=== PATIENT | female | born 1995 | race African-American/Black ===

== ENCOUNTER 2021-04-19 06:32 | Emergency (ER) | payer SELFPAY ==
[2021-04-19 06:45] VITALS: BP 124/101; PULSE 97; RESP 20; TEMP 36.7; O2SAT 100
[2021-04-19 07:13] VITALS: BP 140/94
[2021-04-19] MEDS: predniSONE 20 MG TABLET 40 MG PO (08:57)
[2021-04-19] MEDS: diphenhydrAMINE HCl CAP 25 MG CAPSULE PO (08:57)
--- NOTE | 2021-04-19 09:14 | ED.GENADULT ---
HPI - General Adult General Chief complaint: Allergic Reaction Stated complaint: Hives Time Seen by Provider: 04/19/21 06:43 Source: patient History of Present Illness HPI narrative: Patient is a 25 y/o female complaining hives all over for 1 week. She states that they itch. She took Benadryl, which did not seem to help. There is no known alleviating or exacerbating factor. She has no difficulty with swallowing or breathing. Related Data Allergies Allergy/AdvReac Type Severity Reaction Status Date / Time Sulfa (Sulfonamide Allergy Unknown RASH Verified 04/19/21 06:51 Antibiotics) Review of Systems Constitutional: Constitutional: Denies chills, Denies fever(s), Denies headache(s) and Denies weakness Eyes: Eyes: Denies blurry vision ENT: Denies headache(s) and Denies neck pain Cardiovascular: Cardiovascular: Denies chest pain and Denies dyspnea Respiratory: Respiratory: Denies cough and Denies dyspnea Gastrointestinal: Gastrointestinal: Denies abdominal pain, Denies diarrhea, Denies nausea and Denies vomiting Genitourinary: Genitourinary: Denies hematuria and Denies dysuria Musculoskeletal: Musculoskeletal: Denies back pain and Denies neck pain Integumentary/Breasts: Skin/Breast: Reports as per HPI and Reports pruritus Neurologic: Denies headache(s) and Denies weakness Exam Const: General: no acute distress and well developed Orientation/consciousness: oriented to person, oriented to place, oriented to time and patient oriented x3 HENMT: Head: normocephalic Ears: external ears normal General nose exam: Normal external nose present Eyes: General: appearance normal, both eyes and all related structures Conjunctivae: conjunctivae normal Neck: Neck: normal visual inspection and full ROM Chest: Chest palpation & inspection: normal inspection of the chest and no tenderness Resp: Effort & Inspection: normal respiratory effort Auscultation: clear to auscultation bilaterally Cardio: Rate: regular rate Rhythm: regular rhythm GI: GI Palp: No abdominal tenderness and Yes Soft to palpation Skin: General skin exam: normal color and turgor normal Other: scattered area of urticaria noted Neuro: General: oriented to person, oriented to place, oriented to time and patient oriented x3 Cognition (Neuro): normal cognition Extrem: General: normal to inspection, full ROM and no pedal edema Psych: Appearance: grossly normal Mental Status: mental status grossly normal Affect: normal affect Course Vital Signs Vital signs: Vital Signs Temperature 36.7 C 04/19/21 06:45 Pulse Rate 97 04/19/21 06:45 Respiratory Rate 20 04/19/21 06:45 Blood Pressure 124/101 H 04/19/21 06:45 Pulse Oximetry 100 04/19/21 06:45 Temperature 36.7 C 04/19/21 06:45 Pulse Rate 97 04/19/21 06:45 Respiratory Rate 16 04/19/21 11:25 Blood Pressure 140/94 H 04/19/21 07:13 Pulse Oximetry 100 04/19/21 06:45 Medical Decision Making Vital Signs Vital Signs: Vital Signs Temperature 36.7 C 04/19/21 06:45 Pulse Rate 97 04/19/21 06:45 Respiratory Rate 20 04/19/21 06:45 Blood Pressure 124/101 H 04/19/21 06:45 Pulse Oximetry 100 04/19/21 06:45 Temperature 36.7 C 04/19/21 06:45 Pulse Rate 97 04/19/21 06:45 Respiratory Rate 16 04/19/21 11:25 Blood Pressure 140/94 H 04/19/21 07:13 Pulse Oximetry 04/19/21 06:45 Lab Data Result diagrams: 04/19/21 09:31 04/19/21 09:31 Labs: Lab Results 04/19/21 04/19/21 04/19/21 Range/Units 09:31 09:31 09:31 WBC 6.0 (4.5-10.0) K/mm3 RBC 3.96 L (4.2-5.4) M/mm3 Hgb 12.3 (12.0-15.0) g/dL Hct 35.9 L (37.0-47.0) % MCV 90.7 (80-100) fl MCH 31.1 (26-34) pg MCHC 34.3 (32-36) g/dl RDW 11.3 L (11.5-14.5) % Plt Count 280 (150-375) k/mm3 MPV 10.6 H (7.4-10.4) fl Immature Gran % (Auto) 0.2 (0-0.5) % Neut % (Auto) 41.0 L (45.5-73.1) % Lymph % (Auto) 4
[2021-04-19 09:40] LABS: Basophils Percent Auto 0.3 % (0.2-1.2); Eosinophils Absolute Auto 0.1 K/mm3 (0-0.3); Eosinophils Percent Auto 1.2 % (0-4.4); Hematocrit 35.9 % (37.0-47.0); Hemoglobin 12.3 g/dL (12.0-15.0); Immature Granulocyte Absolute 0.01 K/mm3 (0.00-0.031); Immature Granulocyte Percent A 0.2 % (0-0.5); Lymphocytes Absolute Auto 2.87 K/mm3 (0.9-3.2); Lymphocytes Percent Auto 48.2 % (18.3-44.2); Mean Corpuscular HGB Conc 34.3 g/dl (32-36); Mean Corpuscular Hemoglobin 31.1 pg (26-34); Mean Corpuscular Volume 90.7 fl (80-100); Mean Platelet Volume 10.6 fl (7.4-10.4); Monocytes Absolute Auto 0.5 K/mm3 (0.1-0.6); Monocytes Percent Auto 9.1 % (2.6-8.5); Neutrophils Absolute Auto 2.5 K/mm3 (1.3-6.7); Platelet Count Result 280 k/mm3 (150-375); Red Blood Count 3.96 M/mm3 (4.2-5.4); Red Cell Distribution Width 11.3 % (11.5-14.5)
[2021-04-19 09:44] LABS: Add Urine Microscopic? YES; Appearance Urine Clear (Clear); Bacteria Urine Trace /hpf; Bilirubin Urine Negative (Negative); Color Urine Yellow (Yellow); Glucose Urine UA Negative (Negative); Ketones Urine Negative (Negative); Leukocyte Esterase Ur 2+ LEU/UL (Negative); Mucus Urine Rare /lpf; Nitrate Urine Negative (Negative); Protein Urine Negative (Negative); Specific Grav Ur 1.017 (1.001-1.035); Squamous Epithelial Cell Urine Many /hpf (Few); WBC Urine 31-50 /hpf
[2021-04-19 09:52] LABS: Anion Gap 8 mmol/L (8-16); Blood Urea Nitrogen 12 mg/dL (7-17); Calcium 9.2 mg/dL (8.4-10.2); Carbon Dioxide 25 mmol/L (22-30); Chloride 107 mmol/L (98-107); Estimated CRCL calculation 150 ml/min; Estimated Glomerular Filt Rate > 60; Glucose 97 mg/dL (65-110); Potassium 4.1 mmol/L (3.4-5.0); Sodium 140 mmol/L (137-145)
[2021-04-19 10:01] LABS: Blood Urine Negative (Negative)
[2021-04-19 11:25] VITALS: RESP 16
== END 2021-04-19 11:25 | disposition home or self-care (01) ==
PROVIDERS: Emergency Provider Emergency Medicine
DX: L50.9 Urticaria, unspecified (principal)
CPT/HCPCS: 36415; 80048; 81001; 85025; 87086; 87088; 99283; A9270; J7512

== ENCOUNTER 2021-12-25 01:04 | Emergency (ER) | payer OTHER, SELFPAY ==
--- NOTE | ~2021-12-25 | CT_ITS ---
EXAMINATION: CT soft tissue neck w con DATE: 12/25/2021 03:43 INDICATION: Right-sided facial and neck pain, fever TECHNIQUE: Computed tomography (CT) of the neck was performed with 75 cc of Omnipaque 300 intravenous contrast. The dose-length product (DLP) was 465.94 mGy-cm. Automated exposure control and iterative reconstruction technique were employed. COMPARISON: None FINDINGS: There is marked enlargement of the thyroid which extends into the neck. There is partially imaged prominent soft tissue density of the anterior mediastinum The submandibular and parotid glands are symmetric. There is no lymphadenopathy. The vasculature is patent. The airway is unremarkable. T here are no osseous abnormalities. The orbits are unremarkable. IMPRESSION: 1. Marked enlargement of the thyroid, possibly reflecting thyroiditis. Further evaluation with thyroi d function tests and ultrasound are recommended. 2. Partially imaged soft tissue density of the anterior mediastinum of unclear etiology. Finding coul d reflect thymic hyperplasia, lymphoma, or thymoma. Dedicated CT of the chest is recommended. Reviewed, dictated and finalized at location A. IMPRESSION: 1. Marked enlargement of the thyroid, possibly reflecting thyroiditis. Further evaluation with thyroid function tests and ultrasound are recommended. 2. Partially imaged soft tissue density of the anterior mediastinum of unclear etiology. Finding could reflect thymic hyperplasia, lymphoma, or thymoma. Dedic ated CT of the chest is recommended.
[2021-12-25 01:12] VITALS: BP 107/79; PULSE 117; RESP 20; TEMP 36.6; O2SAT 100
[2021-12-25] MEDS: SODIUM CHLORIDE 0.9% IV 1,000 ML 999 ML IV CONT (01:58)
[2021-12-25] MEDS: CLINDAMYCIN 600 MG/D5W 50 ML 600 MG/50 ML PIGGYBACK 100 MG IVPB (01:58)
[2021-12-25 02:11] LABS: Basophils Percent Auto 0.2 % (0.2-1.2); Eosinophils Absolute Auto 0.1 K/mm3 (0-0.3); Eosinophils Percent Auto 1.1 % (0-4.4); Hematocrit 33.9 % (37.0-47.0); Hemoglobin 11.3 g/dL (12.0-15.0); Immature Granulocyte Absolute 0.01 K/mm3 (0.00-0.031); Immature Granulocyte Percent A 0.1 % (0-0.5); Lymphocytes Absolute Auto 4.85 K/mm3 (0.9-3.2); Lymphocytes Percent Auto 52.9 % (18.3-44.2); Mean Corpuscular HGB Conc 33.3 g/dl (32-36); Mean Corpuscular Hemoglobin 28.7 pg (26-34); Mean Platelet Volume 11.1 fl (7.4-10.4); Monocytes Absolute Auto 0.8 K/mm3 (0.1-0.6); Monocytes Percent Auto 8.6 % (2.6-8.5); Neutrophils Absolute Auto 3.4 K/mm3 (1.3-6.7); Neutrophils Percent Auto 37.1 % (45.5-73.1); Platelet Count Result 291 k/mm3 (150-375); Red Blood Count 3.94 M/mm3 (4.2-5.4); Red Cell Distribution Width 13.1 % (11.5-14.5); White Blood Count 9.2 K/mm3 (4.5-10.0)
[2021-12-25 02:24] LABS: INR 1.1; Prothrombin Time 14.1 Seconds (11.1-14.7)
[2021-12-25 02:25] LABS: Partial Thromboplastin Time 38.2 SECONDS (22.3-36.8)
[2021-12-25 02:26] LABS: Lactic Acid Reflex 2.2 mmol/L (0.7-2.0)
[2021-12-25] MEDS: KETOROLAC 30 MG/ML VIAL (*BKC) IV PUSH (02:28)
[2021-12-25 02:35] LABS: Amphetamine Screen Urine Negative (Negative); Barbiturate Screen Urine Negative (Negative); Benzodiazepines Screen Urine Negative (Negative); Cannabinoid Screen Urine Positive (Negative); Cocaine Screen Urine Negative (Negative); Methadone Screen Urine Negative (Negative); Opiate Screen Urine Negative (Negative); Phencyclidine Screen Urine Negative (Negative)
--- NOTE | 2021-12-25 02:50 | ED.NECK ---
HPI - Neck Pain/Injury General Chief Complaint: Neck Pain/Injury Stated Complaint: difficulty swallowing Time Seen by Provider: 12/25/21 01:40 Source: patient, RN notes reviewed and old records reviewed Mode of arrival: ambulatory Limitations: no limitations History of Present Illness HPI Narrative: This is a 26 year old female who presents for evaluation of right upper dental pain and neck swelling. Patient is complaining of right upper tooth pain for 2 days. She states her pain has gotten worsen. Tonight she also noticed that she is having neck swelling. She reports mild sob and difficulty swallowing. She reports she felt like food got sucks. She denies fever, chills, nausea, vomiting. She is complaining of neck pain as well., Related Data Allergies Allergy/AdvReac Type Severity Reaction Status Date / Time Sulfa (Sulfonamide Allergy Unknown RASH Verified 12/25/21 01:14 Antibiotics) Review of Systems Review of Systems: All systems reviewed & are unremarkable except as noted in HPI and below Constitutional: Constitutional: Denies chills and Denies fever(s) ENT: Reports mouth pain and Reports neck pain Cardiovascular: Cardiovascular: Denies chest pain and Reports rapid heart rate Respiratory: Respiratory: Denies chest congestion Gastrointestinal: Gastrointestinal: Denies abdominal pain, Denies diarrhea and Denies vomiting Neurologic: Denies headache(s), Denies focal weakness and Denies numbness Endocrine: Endocrine: Reports excessive sweating and Reports palpitations PMFSH Past Medical History Medical History (Updated 12/25/21 @ 06:12 by Josephine Vazquez MD) Patient denies medical problems Social History Social History (Updated 12/25/21 @ 02:53 by Josephine Vazquez MD) Smoking packs per day: 1 Smoking cigarettes per day: 20.0 Smoking status: Current every day smoker Exam Const: General: alert Nutritional Appearance: well nourished Orientation/consciousness: patient oriented x3 Other: patient crying HENMT: Head: normal to inspection Mouth: Yes lip normal and Yes moist mucous membranes Teeth and gingiva: abnormal tooth and associated gingiva (right upper tooth4 broken, no gum swelling) Throat: posterior oropharynx normal and uvula midline Eyes: Conjunctivae: conjunctivae normal Pupils: Equal, round and reactive pupils present EOM: EOMs intact bilaterally Neck: Thyroid: diffusely enlarged, not firm, no nodules, tender and no warm Lymphatic: no lymphadenopathy noted Other: anterior neck swelling Resp: Effort & Inspection: normal respiratory effort Auscultation: clear to auscultation bilaterally and breath sounds present Cardio: Rate: tachycardic Rhythm: regular rhythm Heart sounds: no murmurs GI: GI Palp: Yes Soft to palpation, No Tenderness to palpation present (GI), No Guarding due to palpation present (GI), No Rigid due to palpation and No Hernia present Auscultation: normal bowel sounds Back/Spine/Pelvis: Back: no CVA tenderness Skin: General skin exam: normal color Rashes: no rashes Neuro: General: patient oriented x3 and moves all extremities Cranial nerves: Yes Nystagmus not present Speech: normal speech Extrem: General: normal to inspection Psych: Mental Status: mental status grossly normal Affect: normal affect Course Reevaluation(s) Reevaluation #1: Patient states she feels better. After discussion she has had weight loss, increased heart rate, bulging eyes for a couple months. She has hyperthyroid with thyroiditis. I discussed discharge management and that she will need to see PCP and technical report writer. I discussed she will be discharge on initial treatment. Date: 12/25/21 Time: 05:57 Vital Signs Vital signs: Vital Signs Temperature 97.8 F 12/25/21 01:12 Pulse Rate 117 H 12/25/21 01:12 Respiratory Rate 20 12/25/21 01:12 Blood Pressure 107/79 12/25/21 01:12 Pulse Oximetry 100 12/25/21 01:12 Oxygen Delivery Room Air
[2021-12-25 03:03] LABS: Alanine Aminotransferase 20 U/L (6-35); Albumin Level 3.7 g/dL (3.5-5.1); Alkaline Phosphatase 110 U/L (38-126); Anion Gap 6 mmol/L (8-16); Aspartate Amino Transferase 30 U/L (14-36); Bilirubin,Total < 0.1 mg/dL (0.2-1.3); Blood Urea Nitrogen 13 mg/dL (7-17); CRP 0.6 mg/dL (<1.0); Calcium 9.3 mg/dL (8.4-10.2); Carbon Dioxide 27 mmol/L (22-30); Chloride 108 mmol/L (98-107); Estimated CRCL calculation 150 ml/min; Estimated Glomerular Filt Rate > 60; Glucose 103 mg/dL (65-110); Magnesium 1.6 mg/dL (1.6-2.3); Potassium 3.7 mmol/L (3.4-5.0); Sodium 141 mmol/L (137-145)
[2021-12-25 03:12] VITALS: BP 101/75; PULSE 115; RESP 16; O2SAT 100
[2021-12-25 03:53] VITALS: BP 145/82; PULSE 108; RESP 16; O2SAT 98
[2021-12-25 04:23] LABS: Thyroid Stimulating Hormone Reflex < 0.015 uIU/mL (0.465-4.68)
[2021-12-25 05:08] LABS: Reflex Lactic Acid Yes or No Add Lactic
[2021-12-25 06:18] LABS: Lactic Acid 0.8 mmol/L (0.7-2.0)
[2021-12-25 06:39] VITALS: BP 112/57; PULSE 108; RESP 20; O2SAT 100
--- NOTE | 2021-12-25 06:47 | PC.NURSE ---
Pt left keys in room once pt was discharged. RN called to inform pt. Pt states she is coming back to get them.
== END 2021-12-25 06:40 | disposition home or self-care (01) ==
PROVIDERS: Emergency Provider General Practice
DX: K04.7 Periapical abscess without sinus (principal); E06.9 Thyroiditis, unspecified; E05.90 Thyrotoxicosis, unspecified without thyrotoxic crisis or storm; F17.210 Nicotine dependence, cigarettes, uncomplicated
CPT/HCPCS: 36415; 70491; 80053; 80307; 81025; 83605; 83735; 84439; 84443; 85025; 85610; 85730; 86140; 87081; 87147; 87880; 96365; 96375; 99284; J1100; J1885; J7030; Q9967

== ENCOUNTER 2022-02-24 10:45 | Outpatient (CLI) | payer OTHER, SELFPAY ==
[2022-02-24 20:07] LABS: Free T4 Free Thyroxine 2.69 ng/mL (0.78-2.19)
[2022-02-24 20:11] LABS: Thyroid Stimulating Hormone < 0.015 uIU/mL (0.465-4.680)
[2022-02-28 14:03] LABS: Thyroid Stimulating Immunoglob 417 % baseline (<140)
== END 2022-02-24 10:46 | disposition home or self-care (01) ==
PROVIDERS: PCP Family Medicine; Visit Provider Family Medicine
DX: E05.90 Thyrotoxicosis, unspecified without thyrotoxic crisis or storm (principal)
CPT/HCPCS: 36415; 84439; 84443; 84445

== ENCOUNTER 2024-05-16 10:38 | Outpatient (CLI) | payer MEDICAID, SELFPAY | END 2024-05-16 10:39 | disposition home or self-care (01) | LOC: ANHLAB 10:38 | PROVIDERS: PCP Family Medicine; Visit Provider Nurse Practitioner Family | DX: Z87.59 Personal history of other complications of pregnancy, childbirth and the puerperium (principal) | CPT/HCPCS: 36415; 84702 ==

== ENCOUNTER 2024-06-15 10:16 | Outpatient (CLI) | payer MEDICAID, SELFPAY ==
[2024-06-15 11:35] LABS: Basophils Percent Auto 0.1 % (0.2-1.2); Eosinophils Absolute Auto 0.1 K/mm3 (0-0.3); Eosinophils Percent Auto 0.8 % (0-4.4); Hematocrit 35.8 % (37.0-47.0); Hemoglobin 12.7 g/dL (12.0-15.0); Immature Granulocyte Absolute 0.02 K/mm3 (0.00-0.031); Immature Granulocyte Percent A 0.3 % (0-0.5); Lymphocytes Absolute Auto 2.07 K/mm3 (0.9-3.2); Lymphocytes Percent Auto 27.7 % (18.3-44.2); Mean Corpuscular HGB Conc 35.5 g/dl (32-36); Mean Corpuscular Hemoglobin 30.4 pg (26-34); Mean Corpuscular Volume 85.6 fl (80-100); Monocytes Absolute Auto 0.5 K/mm3 (0.1-0.6); Monocytes Percent Auto 6.2 % (2.6-8.5); Neutrophils Absolute Auto 4.9 K/mm3 (1.3-6.7); Neutrophils Percent Auto 64.9 % (45.5-73.1); Platelet Count Result 267 k/mm3 (150-375); Red Blood Count 4.18 M/mm3 (4.2-5.4); Red Cell Distribution Width 11.9 % (11.5-14.5); White Blood Count 7.5 K/mm3 (4.5-10.0)
[2024-06-15 11:42] LABS: Add Urine Microscopic? YES; Appearance Urine Cloudy (Clear); Bacteria Urine 2+ /hpf; Bilirubin Urine Negative (Negative); Blood Urine Negative (Negative); Color Urine Yellow (Yellow); Glucose Urine UA Negative (Negative); Ketones Urine Negative (Negative); Leukocyte Esterase Ur 3+ LEU/UL (Negative); Nitrate Urine Negative (Negative); Non Pathogenic Casts 0-2; Protein Urine Trace mg/dL (Negative); RBC Urine 0-2 /hpf (0-2); Specific Grav Ur 1.024 (1.001-1.035); Squamous Epithelial Cell Urine Few /hpf (Few); WBC Urine 51-100 /hpf (0-3)
[2024-06-15 12:09] LABS: Vitamin D 25 Hydroxy 27.2 ng/mL
[2024-06-15 12:18] LABS: Thyroid Stimulating Hormone < 0.015 uIU/mL (0.465-4.680)
[2024-06-15 12:24] LABS: Hepatitis B Surface Antigen Negative (Negative); Rubella IgG Antibody 14.3 IU/ML
[2024-06-15 12:27] LABS: HIV 1/2 Ab P24 Ag Result Negative (Negative)
[2024-06-15 12:40] LABS: Hepatitis C Virus Antibody Negative (Negative)
[2024-06-15 13:07] LABS: Free T4 Free Thyroxine 3.12 ng/mL (0.78-2.19)
[2024-06-16 11:42] LABS: Rapid Plasma Reagin Non-Reactive (NonReactive)
[2024-06-17 17:04] LABS: Varicella IgG Antibody <1.00 S/CO
[2024-06-17 18:17] LABS: Thyroid Peroxidase Antibodies 1 IU/mL (<9)
[2024-06-17 18:54] LABS: Hematocrit 37.4 % (35.0-45.0); Hemoglobin 12.3 g/dL (11.7-15.5); MCH 30.2 pg (27.0-33.0); MCV 91.9 fL (80.0-100.0); Red Blood Cell Count 4.07 Million/uL (3.80-5.10)
== END 2024-06-15 10:17 | disposition home or self-care (01) ==
LOC: ANHLAB 10:17
PROVIDERS: PCP Family Medicine; Visit Provider Obstetrics & Gynecology
DX: Z34.90 Encounter for supervision of normal pregnancy, unspecified, unspecified trimester (principal); E05.90 Thyrotoxicosis, unspecified without thyrotoxic crisis or storm
CPT/HCPCS: 36415; 81001; 81220; 81243; 82306; 83021; 84439; 84443; 85025; 86376; 86592; 86703; 86762; 86787; 86803; 86850; 86900; 86901; 87086; 87340; G0432

== ENCOUNTER 2024-06-25 11:23 | Outpatient (CLI) | payer MEDICAID, SELFPAY ==
--- NOTE | ~2024-06-25 | US_ITS ---
EXAMINATION: US thyroid DATE: 06/25/2024 12:06 INDICATION: Thyrotoxicosis, unspecified without thyrotoxic crisis. TECHNIQUE: Multiple ultrasound images of the thyroid were obtained. COMPARISON: Neck CT 12/25/2021 FINDINGS: The right thyroid lobe measures 8.0 x 2.7 x 3.1 cm. The left thyroid lobe measures 7.2 x 2.4 x 3.2 c m. There is normal echotexture and echogenicity throughout the thyroid gland. No discrete nodules id entified. Normal vascular flow is present. IMPRESSION: 1. Chronically enlarged thyroid. Reviewed, dictated and finalized at location A. [employer]
== END 2024-06-25 11:24 | disposition home or self-care (01) ==
PROVIDERS: PCP Family Medicine; Visit Provider Obstetrics & Gynecology
DX: E04.9 Nontoxic goiter, unspecified (principal)
CPT/HCPCS: 76536

== ENCOUNTER 2024-07-10 13:50 | Outpatient (CLI) | payer MEDICAID, SELFPAY ==
[2024-07-10 14:30] LABS: Hematocrit 34.7 % (37.0-47.0); Hemoglobin 12.1 g/dL (12.0-15.0); Mean Corpuscular HGB Conc 34.9 g/dl (32-36); Mean Corpuscular Hemoglobin 30.2 pg (26-34); Mean Corpuscular Volume 86.5 fl (80-100); Mean Platelet Volume 10.9 fl (7.4-10.4); Platelet Count Result 273 k/mm3 (150-375); Red Blood Count 4.01 M/mm3 (4.2-5.4); Red Cell Distribution Width 12.1 % (11.5-14.5); White Blood Count 14.6 K/mm3 (4.5-10.0)
[2024-07-10 16:12] LABS: Alanine Aminotransferase 13 U/L (6-35); Albumin Level 3.7 g/dL (3.5-5.1); Alkaline Phosphatase 66 U/L (38-126); Anion Gap 5 mmol/L (4-12); Aspartate Amino Transferase 24 U/L (14-36); Bilirubin,Total 0.3 mg/dL (0.2-1.3); Blood Urea Nitrogen 11 mg/dL (7-17); Calcium 9.2 mg/dL (8.4-10.2); Carbon Dioxide 24 mmol/L (22-30); Chloride 103 mmol/L (98-107); Estimated Glomerular Filt Rate > 60; Glucose 100 mg/dL (65-110); Potassium 4.2 mmol/L (3.4-5.0); Sodium 132 mmol/L (137-145)
[2024-07-10 16:41] LABS: Total Triiodothyronine (T3) 3.08 NG/ML (0.97-1.69)
[2024-07-10 16:45] LABS: Free T4 Free Thyroxine 3.42 ng/dL (0.78-2.19)
== END 2024-07-10 13:51 | disposition home or self-care (01) ==
LOC: ANHLAB 13:51
PROVIDERS: PCP Family Medicine; Visit Provider Obstetrics & Gynecology
DX: E05.90 Thyrotoxicosis, unspecified without thyrotoxic crisis or storm (principal)
CPT/HCPCS: 36415; 80053; 84439; 84480; 85027

== ENCOUNTER 2024-08-18 07:51 | Observation (INO) | payer BC, SELFPAY ==
--- NOTE | ~2024-08-18 | US_ITS ---
Limited Pelvic ultrasound. Clinical History: Evaluate placenta and cervical length, vaginal bleeding, third trimester Technique: Realtime transabdominal scanning of the pelvis was performed. Color flow Doppler and Doppl er spectral analysis were performed. Findings: The uterus is anteverted, and contains an intrauterine gestation, with cephalic lie. Placen ta located towards the fundus and posterior aspect of the uterus. No evidence for placenta previa. Fe ulices heart rate is 165 bpm. Cervix closed, measuring 2.9 cm in length. Amniotic fluid index is 16.1.. Neither ovary visualized. No adnexal mass seen. There is no evidence of free fluid in the cul de sac. Impression: Live intrauterine gestation, with heart rate of 1 65 bpm, and cephalic lie. Posterior/fundal placenta. No evidence for placenta previa. Amniotic fluid index is 16.1. Reviewed, dictated and finalized at [facility]. 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 Posterior/fundal placenta. No evidence for placenta previa. Amniotic fluid index is 16.1.
--- OUTSIDE RECORDS SUMMARY | 2024-08-18 08:00 | XMS_ITS | Data Portability ---
Author Organization [facility] DARRYL Roberto Gutierrez Address [address] [place] [address] Care Team Providers Care [employer] Faculty Member Name Role Phone NADIA HAN Primary Care Provider Assessment Encounter Date Assessment Date Assessment LastModified by Organization Details LastModified Time 09/22/2016 09/22/2016 21yo: 1. missed period: - patient still technically within the timeframe of what's considered normal for menses (21-35d). We discussed this. Patient also endorsing extra stress at this time which could contribute to cycle irregularity, and also history of irregular cycles previously. Encouraged patient to wait another week for menses to come. If no cycle then can either take home UPT to be sure she is not or return to clinic for PT here. 2. Contraception: - patient was very strongly counseled to choose an alternative method of contraception to condoms. We discussed efficacy rates among condoms and also LARCs. Patient expressed concern for side effects, and hormone-free IUD was advised. She was given information and encouraged to call the office if she decides to proceed. She is also going to look into her insurance coverage through the . 3. RTC if desires to use IUD [email or web address] Not available 09/22/2016 15:42:45 04/13/2018 04/13/2018 LMP WAS - WNL FLOW [email or web address] Not available 04/13/2018 12:53:39 Plan of Treatment Reminders Order Date Submit Date Provider Last Modified By Organization Details Last Modified Time Details Appointments None record ed. Lab pregna ncy test, urine 2016 017 [email or web address] In-Office Order, Internal Use Only DO Not Attach Compendium DO Not Attach Compendium, Do Not Delete/merge, [id number] 7 15:43:20 wet mount, vagina l 2017 018 [email or web address] s In-Office Order, Internal Use Only DO Not Attach Compendium DO Not Attach Compendium, Do Not Delete/merge, [id number] 8 18:53:36 vance wet prep 2017 018 [email or web address] s In-Office Order, Internal Use Only DO Not Attach Compendium DO Not Attach Compendium, Do Not Delete/merge, [id number] 8 18:53:36 pap, IG + CT/NG 2017 018 [facility], [address] [facility] [address] [facility], [address], [place], [address], 8 17:10:29 RPR (rapid plasma reagin ), serum 2017 018 [facility], [address] [facility] [address], [address], [place], [address], 8 17:11:44 HIV (1+2) Ab screen , serum 2017 018 [email or web address] [facility], [address] [facility], [address], [place], [address], 8 17:30:42 hepati tis panel (A+B+C ), acute, serum 2017 018 [facility], [address] [facility], [address], [place], [address], 8 17:11:42 hsv-2 (herpe s simple x virus type 2) igg Ab, serum 2017 018 [email or web address] [facility] ([facility] [address] [place], [address], 8 17:30:43 cytolo gy report , thin prep, smear or scrapi ng, cervic al or vagina l 2021 [facility], [address] [facility] [address], [address], [place], [address], 2 11:36:42 bacter ial vagino sis score, AVILA+pr obe, vagina l fluid (OBS) 2021 [facility], [address] [facility] [address] [facility], [address], [place], [address], 10:36:39 Referral obstet rician and gyneco logist referr al 2021 [facility], [address] [place] [address], [address], 14:14:11 Procedures None record ed. Surgeries None record ed. Imaging US, breast , bilate ral, comple te 2021 [facility], [address] [place] [address] [address], [place], [address], 2 12:14:49 MAMMO, diagno stic, bilate ral 2021 [facility], [facility], [place], [address], 2 12:14:49 Medication Orders metron idazol e 500 mg tablet 2017 018 [email or web address] [id number], [address] , [place], [place], [id number], 11:28:55 ceftri axone 250 mg soluti on for inject ion 2017 018 [email or web address] Not available 11:28:33 flucon azole 150 mg tablet 2017 018 [email or web address] Not available 11:28:44 azithr omycin 500 mg tablet [address] [facility] #[id number], [address] [facility], [place], [place], [id number], 2 11:28:27 flucon azole 150 mg tablet [address] [facility] #[id number], [address] [facility], [place], [place], [id number], 11:28:44 ceftri axone 250 mg soluti on for inject ion 2017 018 [email or web address] Not available 11:28:33 hydroc ortiso ne 2.5 % topica l ointme nt 2021 022 [facility] #[id number], [address] [facility] [address], [place], [place], [id number], 12:17:38 Patient TargetsNo targets recorded. Patient InstructionsNo instructions recorded. 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 Referral for Female infertility Referring Physician: Nadia Han, Family Medicine, Encounter Date: 09/15/2021 Results Created Date Observation Date Name Description Value Unit Range Abnormal Flag Note LastModifiedBy Organization Detail LastModifiedTime 09/23/19 17 09/22/2016 pregn octavio test, urine HCG negati ve Not Available In-Office Order Internal Use Only DO Not Attach Compendium DO Not Attach Compendium, Do Not Delete/merge, [id number] 09/22/2016 15:06:05 03/28/20 18 03/29/2018 hepat itis panel (A+B+ C), acute , serum hep A Ab, IgM Negati ve negati ve Not Available [facility] ([facility]) [address] [facility] [address], [place], [address], 03/29/2018 17:11:42 03/28/20 18 03/29/2018 hepat itis panel (A+B+ C), acute , serum HBsAg screen Negati ve negati ve Not Available [facility] ([facility]) [address] [place], [address], 03/29/2018 17:11:42 03/28/20 18 03/29/2018 hepat itis panel (A+B+ C), acute , serum hep B core Ab, IgM Negati ve negati ve Not Available [facility] ([facility]) [address] [place], [address], 03/29/2018 17:11:42 03/28/20 18 03/29/2018 hepat itis panel (A+B+ C), acute , serum hep C virus Ab 0.1 s/co_ ratio 0.0-0. 9 Negat luca: < 0.8 Indet ermin ate: 0.8 - 0.9 Posit luca: > 0.9 The CDC recom mends that a posit luca HCV antib malinda resul t be follo wed up with a HCV Nucle ic Acid Ampli ficat ion test (5507 13). Not Available [facility] ([facility]) [address] [address], [place], [address], 03/29/2018 17:11:42 03/28/20 18 03/29/2018 hsv (1+2) igg Ab, serum hsv 1 IgG, type spec 48.20 index 0.00-0 .90 above high normal Negat luca <0.91 Equiv ocal 0.91 - 1.09 Posit luca >1.09 Note: Negat luca indic ates no antib odies detec eric to HSV-1 . Equiv ocal may sugge st early infec tion. If clini darrius appro priat e, retes t at later date. Posit luca indic ates antib odies detec eric to HSV-1 . Not Available [facility] ([facility]) [address] [place], [address], 03/29/2018 17:11:43 03/28/20 18 03/29/2018 hsv (1+2) igg Ab, serum hsv 2 IgG, type spec 2.42 index 0.00-0 .90 above high normal Negat luca <0.91 Equiv ocal 0.91 - 1.09 Posit luca >1.09 Note: Negat luca indic ates no antib odies detec eric to HSV-2 . Equiv ocal may sugge st early infec tion. If clini darrius appro priat e, retes t at later date. Posit luca indic ates antib odies detec eric to HSV-2 . Not Available [facility] ([facility]) [address] [address], [place], [address], 03/29/2018 17:11:43 03/28/20 18 03/29/2018 hsv (1+2) igg Ab, serum hsv-2 IgG supplemental test Positi ve negati ve abnormal HSV-2 IgG HSV-2 IgG Type Speci fic Confi rmati on Inter preta tion ----- ----- ----- ----- ----- ----- ----- ----- ----- ----- ----- Posit luca/E quivo ndaya Posit luca Indic ates the prese nce of detec table IgG antib odies to HSV-2 . ----- ----- ----- ----- ----- ----- ----- ----- ----- ----- ----- Posit luca/E quivo nadya Negat luca Unabl e to confi rm the prese nce of IgG antib odies to HSV-2 . Recom mend retmannie cruz in 2-4 weeks . ----- ----- ----- ----- ----- ----- ----- ----- ----- ----- ----- Not Available [facility] ([facility]) [address] [place], [address], 03/29/2018 17:11:43 03/28/20 18 03/29/2018 HIV 1+2 AB + HIV 1 p24 Ag, quali tativ e immun oassa y, serum HIV screen 4TH generation wrfx Non Reacti ve non reacti ve Not Available [facility] ([facility]) [address] [place], [address], 03/29/2018 17:11:43 03/28/20 18 03/29/2018 RPR (rapi d plasm a reagi n), serum RPR Non Reacti ve non reacti ve Not Available [facility] ([facility]) [address] [facility] [address], [place], [address], 03/29/2018 17:11:43 03/29/20 18 04/02/2018 pap, IG + CT/NG diagnosis: Commen t NEGASHLEY LUCA FOR INTRA EPITH ELIAL LESIO N AND KARISHMA ZAMARRIPA . CELLU LAR BATISTA ES ASSOC IATED WITH HERPE S SIMPL EX ARE PRESE NT. THIS SPECI MEN WAS RESCR EENED PART OF OUR QUALI TY CONTR OL PROGR AM. Not Available [facility] ([facility]) [address] [place], [address], 04/02/2018 17:10:29 03/29/20 18 04/02/2018 pap, IG + CT/NG specimen adequacy: Commen t Satis facto ry for evalu ation . Endoc ervic al and/o r squam ous metap lasti c cells (endo cervi nadya compo nent) are prese nt. Not Available [facility] ([facility]) [address] [place], [address], 04/02/2018 17:10:29 03/29/20 18 04/02/2018 pap, IG + CT/NG clinician provided ICD10: Hernando t Z01.4 11 Not Available [facility] ([facility]) [address] [address], [place], [address], 04/02/2018 17:10:29 03/29/20 18 04/02/2018 pap, IG + CT/NG performed by: Hernando Lema , Cytot echno logis t (ASCP ) Not Available [facility] ([facility]) [address] [place], [address], 04/02/2018 17:10:29 03/29/20 18 04/02/2018 pap, IG + CT/NG QC reviewed by: Hernando jhaveri, Cytot echno logis t (ASCP ) Not Available [facility] ([facility]) [address] [place], [address], 04/02/2018 17:10:29 03/29/20 18 04/02/2018 pap, IG + CT/NG . . Not Available [facility] ([facility]) [address] [address], [place], [address], 04/02/2018 17:10:29 03/29/20 18 04/02/2018 pap, IG + CT/NG note: Hernando ricks The Pap smear is a scree serg test desig paulie to aid in the detec tion of adrian ligna nt and malig nant condi tions of the uteri ne cervi x. It is not a diagn ostic proce dure and shoul d not be used as the sole means of detec ting cervi nadya cance r. Both false -posi tive and false -nega tive repor ts do occur . Not Available [facility] ([facility]) [address] [address], [place], [address], 04/02/2018 17:10:29 03/29/20 18 04/02/2018 pap, IG + CT/NG test methodology: Hernando ricks This liqui d based ThinP rep(R ) pap test was scree paulie with the use of an image guide felix callejas. Not Available [facility] ([facility]) [address] [address], [place], [address], 04/02/2018 17:10:29 03/29/20 18 04/02/2018 pap, IG + CT/NG chlamydia, nuc. acid amp Positi ve negati ve abnormal Not Available [facility] ([facility]) [address] [address], [place], [address], 04/02/2018 17:10:29 03/29/20 18 04/02/2018 pap, IG + CT/NG gonococcus, nuc. acid amp Positi ve negati ve abnormal Not Available [facility] ([facility]) [address] [address], [place], [address], 04/02/2018 17:10:29 03/29/20 18 03/29/2018 vance wet prep Yeast positi ve Not Available In-Office Order Internal Use Only DO Not Attach Compendium DO Not Attach Compendium, Do Not Delete/merge, [id number] 03/29/2018 18:51:25 03/29/20 18 03/29/2018 wet mount , vagin al Clue Cells positi ve Not Available In-Office Order Internal Use Only DO Not Attach Compendium DO Not Attach Compendium, Do Not Delete/merge, [id number] 03/29/2018 18:51:24 03/29/20 18 03/29/2018 wet mount , vagin al Trichomonas positi ve Not Available In-Office Order Internal Use Only DO Not Attach Compendium DO Not Attach Compendium, Do Not Delete/merge, [id number] 03/29/2018 18:51:24 09/15/19 22 09/18/2021 IGP, APTIM A HPV, RFX 16/18 ,45 HPV aptima Negati ve negati ve This nucle ic acid ampli ficat ion test detec ts fourt een high- risk HPV types (16,1 8,31, 33,35 ,39,4 5,51, 52,56 ,58,5 9,66, 68) witho ut diffe renti ation . Not Available [facility] ([facility]) [address] [facility] [address], [place], [address], 09/20/2021 11:36:42 09/15/19 22 09/20/2021 IGP, APTIM A HPV, RFX 16/18 ,45 diagnosis: Hernando SEGOVIA FOR INTRA EPITH ELIAL YULIA N OR KARISHMA MARILOU . Not Available [facility] ([facility]) [address] [place], [address], 09/20/2021 11:36:42 09/15/19 22 09/20/2021 IGP, APTIM A HPV, RFX 16/18 ,45 specimen adequacy: Hernando t Satis facto ry for evalu ation . Endoc ervic al and/o r squam ous metap lasti c cells (endo cervi nadya compo nent) are prese nt. Not Available [facility] ([facility]) [address] [place], [address], 09/20/2021 11:36:42 09/15/19 22 09/20/2021 IGP, APTIM A HPV, RFX 16/18 ,45 clinician provided ICD10: Hernando ricks Z12.4 Not Available [facility] ([facility]) [address] [place], [address], 09/20/2021 11:36:42 09/15/19 22 09/20/2021 IGP, APTIM A HPV, RFX 16/18 ,45 performed by: Jennie Alejandra (ASCP ) Not Available [facility] ([facility]) [address] [place], [address], 09/20/2021 11:36:42 09/15/19 22 09/20/2021 IGP, APTIM A HPV, RFX 16/18 ,45 . . Not Available [facility] ([facility]) [address] [place], [address], 09/20/2021 11:36:42 09/15/19 22 09/20/2021 IGP, APTIM A HPV, RFX 16/18 ,45 note: Commen t The Pap smear is a scree serg test desig paulie to aid in the detec tion of adrian ligna nt and malig nant condi tions of the uteri ne cervi x. It is not a diagn ostic proce dure and shoul d not be used as the sole means of detec ting cervi nadya cance r. Both false -posi tive and false -nega tive repor ts do occur . Not Available [facility] ([facility]) [address] [place], [address], 09/20/2021 11:36:42 09/15/19 22 09/20/2021 IGP, APTIM A HPV, RFX 16/18 ,45 test methodology: Hernando t This liqui d based ThinP rep(R ) pap test was scree paulie with the use of an image guide felix callejas. Not Available [facility] ([facility]) [address] [place], [address], 09/20/2021 11:36:42 09/15/19 22 09/20/2021 NUSWA B VG+, HSV atopobium vaginae High - 2 score abnormal Not Available [facility] ([facility]) [address] [place], [address], 09/21/2021 10:36:39 09/15/19 22 09/20/2021 NUSWA B VG+, HSV bvab 2 High - 2 score abnormal Not Available [facility] ([facility]) [address] [place], [address], 09/21/2021 10:36:39 09/15/19 22 09/20/2021 NUSWA B VG+, HSV megasphaera 1 High - 2 score abnormal Calcu late total score by bebeto allen the 3 indiv idual bacte rial vagin osis (BV) marke r score s toget her. Total score is inter prete d as follo ws: Total score 0-1: Indic ates the absen ce of BV. Total score 2: Indet ermin ate for BV. Addit ional clini nadya data shoul d be evalu ated to estab alexandro a diagn osis. Total score 3-6: Indic ates the prese nce of BV. This test was devel oped and its perfo rmanc e chio cteri stics deter mined by [facility]. It has not been clear ed or appro mary by the Food and Drug Admin istra tion. Not Available [facility] ([facility]) [address] [place], [address], 09/21/2021 10:36:39 09/15/19 22 09/20/2021 NUSWA B VG+, HSV erlin albicans, AVILA Negati ve negati ve Not Available [facility] ([facility]) [address] [place], [address], 09/21/2021 10:36:39 09/15/19 22 09/20/2021 NUSWA B VG+, HSV erlin glabrata, AVILA Negati ve negati ve Not Available [facility] ([facility]) [address] [place], [address], 09/21/2021 10:36:39 09/15/19 22 09/20/2021 NUSWA B VG+, HSV trich vag by AVILA Positi ve negati ve abnormal Not Available [facility] ([facility]) [address] [place], [address], 09/21/2021 10:36:39 09/15/19 22 09/20/2021 NUSWA B VG+, HSV chlamydia trachomatis, AVILA Positi ve negati ve abnormal Not Available [facility] ([facility]) [address] [place], [address], 09/21/2021 10:36:39 09/15/19 22 09/20/2021 NUSWA B VG+, HSV neisseria gonorrhoeae, AVILA Negati ve negati ve Not Available [facility] ([facility]) [address] [facility], [place], [address], 09/21/2021 10:36:39 09/15/19 22 09/21/2021 NUSWA B VG+, HSV hsv 1 AVILA Negati ve negati ve Not Available [facility] ([facility]) [address] [facility] [address], [place], [address], 09/21/2021 10:36:39 09/15/19 22 09/21/2021 NUSWA B VG+, HSV hsv 2 AVILA Negati ve negati ve Not Available [facility] ([facility]) [address] [facility] [address], [place], [address], 09/21/2021 10:36:39 Result Notes None recorded. Problems Name Problem SNOMED Code Status Onset Date Resolution Date Notes Provider Name and Address Organization Details Recorded Time Overweight [id number] Active Gil Zendejas MD Attn: Harinder allen,[address] [place], [address], [place] - [facility] 6 17:43:37 Fracture of base of fifth metatarsal [id number] Completed 09/22/2016 Chantel Garcia MD Attn: Harinder allen,[address] [place], [address], [place] [facility] 7 15:12:06 Sprain of ankle 30330405 Completed 09/22/2016 Chantel Garcia MD Attn: Harinder allen,[address] [place], [address], [place] [facility] 7 15:12:05 Irregular periods 58726083 Active Xiomy Devi [place], [place] [facility] 6 17:14:33 Depressed mood 189076380 Active Xiomy Devi [place], [place] [facility] 6 17:14:33 Problem Notes None recorded. Medical Equipment None Reported. Allergies Allergen ID Allergen Name Allergen Category Reaction Reaction Severity Criticality Documentation Date Start Date Code Code System Note Provider Name and Address Organization Details Recorded Time [id number] Substance with sulfonami de structure and antibacte rial mechanism of action (substanc e) medicatio n itching moderate Not available 01/01/2015 [id number] SNOMED Not Available Not Available Not Available Medications Name Sig Start Date Stop Date Status Note LastModified by Organization Details LastModified Time fluconazole 150 mg tablet Take 1 tablet as needed by oral route as directed for 1 day. 09/15 completed Not Available Not Available Not Available ceftriaxone 250 mg solution for injection Take 250 mg as needed by injection route as needed for 1 day. 09/15 completed Not Available Not Available Not Available metronidazo le 500 mg tablet Take 1 tablet twice a day by oral route with meals for 7 days. active Not Available Not Available No t Available hydrocortis one 2.5 % topical ointment APPLY A THIN LAYER TO THE AFFECTED AREA(S) BY TOPICAL ROUTE 2 TIMES PER DAY 2021 active Not Available Not Available Not Avai lable azithromyci n 500 mg tablet TAKE 2 TABLETS FOR ONE TIME DOSE active Not Available Not Available No t Available Vicodin 5 mg-300 mg tablet active Not Available Not Available Not Available Vitals Date Recorded Body height Provider Name an d Address Organization Details Last Updated DateTime 03/28/2018 175.26 cm Mayra Young MA [facility] 03/28 14:47:13 Date Recorded Body mass index (BMI) Body weight Provider Name and Address Organization Details Last Updated DateTime 03/28/2018 27.9 kg/m2 07771.96 tiffany Young MA [facility] 03/28/2018 14:47:19 Date Recorded Body height Provider Name an d Address Organization Details Last Updated DateTime 04/13/2018 175.26 cm Benita Lamas MA [facility] 8 12:43:40 Date Recorded Body mass index (BMI) Body weight Provider Name and Address Organization Details Last Updated DateTime 04/13/2018 27.4 kg/m2 07843.03 g Benita Lamas MA [facility] 0 04/13/2018 12:43:46 Date Recorded Body height Provider Name an d Address Organization Details Last Updated DateTime 04/16/2019 175.26 cm Catia Martinez [facility] 9 11:57:47 Date Recorded Body mass index (BMI) Body weight Provider Name and Address Organization Details Last Updated DateTime 04/16/2019 31.3 kg/m2 86339.98 g Catia Martinez [facility] 0 04/16/2019 11:57:54 Date Recorded Oxygen saturation Oxygen saturation in Arterial blood by Pulse oximetry Provider Name and Address Organization Details Last Updated DateTime 04/16/2019 98 % 98 % Catia Martinez [facility] 04/16/2019 11:57:58 Date Recorded Heart rate Provider Name an d Address Organization Details Last Updated DateTime 04/16/2019 83 /min Catia Martinez [facility] 9 11:58:05 Date Recorded Body weight Provider Name an d Address Organization Details Last Updated DateTime 09/15/2021 31044.21 g Ines Mccall RN [facility] 09/15 11:34:50 Date Recorded Pain severity - 0-10 verbal numeric rating [Score] - Reported Provider Name and Address Organization Details Last Updated DateTime 09/15/2021 0 Ines Mccall RN [facility] 09/15/2021 11:35:29 Date Recorded Oxygen saturation Oxygen saturation in Arterial blood by Pulse oximetry Provider Name and Address Organization Details Last Updated DateTime 09/15/2021 99 % 99 % Ines Mccall RN [facility] 09/15/2021 11:35:32 Date Recorded Heart rate Provider Name an d Address Organization Details Last Updated DateTime 09/15/2021 114 /min Ines Mccall RN [facility] 09/15 11:35:35 Date Recorded Body temperature Provider Name a nd Address Organization Details Last Updated DateTime 09/15/2021 98.9 [degF] Ines Mccall RN [facility] 09/15/2021 11:36:27 Date Recorded Heart rate Provider Name an d Address Organization Details Last Updated DateTime 09/15/2021 90 /min AMARILYS GONSALEZ Attn: Accounting,[address] [place], [address], [facility] 09/15/2021 13:53:23 Date Recorded Body height Provider Name an d Address Organization Details Last Updated DateTime 09/22/2016 170.815 cm Mayra Young MA [facility] 09/22 15:03:22 Date Recorded Body weight Body mass index (BMI) Provider Name and Address Organization Details Last Updated DateTime 09/22/2016 76349.98 g 30.6 kg/m2 Mayra Young MA [facility] 09/22/2016 15:03:31 Date Recorded Systolic blood pressure Diastolic blood pressure Provider Name and Address Organization Details Last Updated DateTime 03/28/2018 120 mm[Hg] 70 mm[Hg] Mayra Young MA [facility] 03/28/2018 14:47:29 Date Recorded Systolic blood pressure Diastolic blood pressure Provider Name and Address Organization Details Last Updated DateTime 04/13/2018 110 mm[Hg] 60 mm[Hg] Benita Lamas MA [facility] 04/13/2018 12:44:03 Date Recorded Systolic blood pressure Diastolic blood pressure Provider Name and Address Organization Details Last Updated DateTime 04/16/2019 122 mm[Hg] 80 mm[Hg] Catia Michelle [facility] 04/16/2019 11:57:40 Date Recorded Systolic blood pressure Diastolic blood pressure Provider Name and Address Organization Details Last Updated DateTime 09/15/2021 110 mm[Hg] 62 mm[Hg] Ines Mccall RN [facility] 09/15/2021 11:37:51 Date Recorded Systolic blood pressure Diastolic blood pressure Provider Name and Address Organization Details Last Updated DateTime 09/22/2016 108 mm[Hg] 66 mm[Hg] Mayra Young MA [facility] 09/22/2016 15:03:44 Social History Question Answer Notes LastModified by Organizat ion Details LastModified Time Tobacco Smoking Status Current Every Day Smoker Mayra Young MA null, [facility] 03/28/2018 14:48:33 Do You Have An Advance Directive? No Information not available 09/15/2021 What Is Your Level Of Alcohol Consumption? None [email or web address] Information not available 10/13/2014 Animal Exposure? No [email or web address] Inform ation not available 10/13/2014 Are You Blind Or Do You Have Difficulty Seeing? No Information not available 09/15/2021 Are You Or Have You Been Involved With Bullying? No [email or web address] Information not available 10/13/2014 What Is Your Level Of Caffeine Consumption? Moderate [email or web address] Information not available 10/13/2014 How Much Tobacco Do You Chew? None [email or web address] Information not available 10/13/2014 What Type Of Bumper Straightener Do You Use? None [email or web address] Information not available 02/09/2016 In The 14 Days Before Symptom Onset, Have You Had Close Contact With A Laboratory-confir med COVID-19 While That Case Was Ill? No Information not available 09/15/2021 In The 14 Days Before Symptom Onset, Have You Had Close Contact With A Person Who Is Under Investigation For COVID-19 While That Person Was Ill? No Information not available 09/15/2021 Have You Been To An Area Known To Be High Risk For COVID-19? No Information not available 09/15/2021 Are You Currently Employed? Yes Information not available 09/15/2021 Are You Deaf Or Do You Have Serious Difficulty Hearing? No Information not available 09/15/2021 What Type Of Diet Are You Following? REGULAR [email or web address] Information not available 10/13/2014 Have There Been Any Changes To Your Family Or Social Situation? No [email or web address] Information no t available 02/09/2016 What Is The Fluoride Status Of Your Home? Fluoridated [email or web address] Information not available 10/13/2014 Are There Any Guns Present In Your Home? No [email or web address] Information not available 10/13/2014 What Is Your Home Situation? Mother Rachana [email or web address] Information not available 10/13/2014 Car Seat Type Or Seat Belt? Seat Belt [email or web address] Information not available 02/09/2016 Parent Involvement? Both Parents Involved [email or web address] Information not available 10/13/2014 Riding In Car Front Seat? Yes [email or web address] Information not available 02/09/2016 Mosquito Repellent Used Routinely Yes [email or web address] Information not available 10/13/2014 What Was The Date Of Your Most Recent Tobacco Screening? 03/28/2018 Information not available 02/14/2019 What Is Your Current Pack Years? [email or web address] Information not available 09/15/2021 Pool Exposure Yes [email or web address] Informati on not available 10/13/2014 Do You Use Your Seat Belt Or Car Seat Routinely? Yes [email or web address] Information not available 10/13/2014 Are You Sexually Active? No [email or web address] Information not available 10/13/2014 Do You Have Any Siblings? 3 [email or web address] Information not available 10/13/2014 Do You Have Smoke And Carbon Monoxide Detectors In Your Home? Yes [email or web address] Information not available 10/13/2014 At What Age Did You Start Smoking Tobacco? 18 Information not available 09/15/2021 Are You Passively Exposed To Smoke? No [email or web address] Information no t available 10/13/2014 How Much Tobacco Do You Smoke? 0.5 PPD Information not available 09/15/2021 What Types Of Sporting Activities Do You Participate In? Basketball & Track [email or web address] Information not available 10/13/2014 Do You Use Any Illicit Or Recreational Drugs? No Information not available 09/15/2021 Do You Use Sunscreen Routinely? No [email or web address] Information not available 10/13/2014 Has Tobacco Cessation Counseling Been Provided? Yes Information not available 09/15/2021 How Many Years Have You Smoked Tobacco? 5 Information not available 09/15/2021 Year In School HS Grad [email or web address] Informati on not available 02/09/2016 Do You Or Have You Ever Used Any Other Forms Of Tobacco Or Nicotine? No Information not available 09/15/2021 Sex: Unknown Functional Status Question Answer Note LastModified by Organization D etails LastModified Time Are you able to care for yourself? Yes Information not available 09/15/2021 What is your exercise level? Moderate [email or web address] Information not available 10/13/2014 Mental Status None recorded. Family History Relationship Description Onset Age of this Age Resolved Age Notes LastModified by Organization Details LastModified Time Father No current problems or disability [email or web address] Not available 08/2016 15:00:57 Mother No current problems or disability [email or web address] Not available 08/2016 15:00:57 Mother Hypertensive disorder [email or web address] Not available 09/22 15:04:16 Mother Mitral valve disorder [email or web address] Not available 2021 11:31:14 Medical History Condition Response Blood Diseases N Ear or Hearing Problems N Thyroid Problems N Depression N Developmental or Behavioral Disorders N Skin Problems Y Premature N Anemia N Constipation N Headaches/Migraines Y Diabetes N Anxiety Disorder N Muscle, Joint, or Bone Problems N Bedwetting N Vision or Eye Problems N Seizures/Epilepsy N Heart Problems/Murmur N Head Injury/Concussion N Cancer N Asthma N Allergies Y ADHD N Bladder or Kidney Problems N Headaches N Chicken Pox N Autism Spectrum Disorder (ASD) N Gynecological History Statement/Question Response Abnormal Pap N Flow Light Date of LMP 08/22/2021 STIs/STDs N HPV Vaccine Y Duration of Flow (days) 5 Age at Menarche 15 Current Control Method Condoms Age at First Child 1 Frequency of Cycle (Q days) 29 Sexually Active? Yes Menses Monthly Y Sexual Problems? N LMP Definite Desired Control Method Condoms Obstetrics History GPAL:G 0 P 0 0 0 0 Immunizations Vaccine Type Date Status Note Provider Nam e and Address Organization Details Recorded Time DTaP,IPV,Hib,HepB 7 completed Cynthia [place], [place] [facility] 10/03/2014 13:01:09 SFdL-Ntf-TSX 7 david [place], [place] [facility] 10/03/2014 13:01:28 BIuF-Flp-HRM 7 KATARZYNA Crisostomo, [place] [facility] 10/03/2014 13:02:15 DTP-Hib 8 david [place] [facility] 10/03/2014 13:02:39 DTP 1 KATARZYNA [place] [facility] 10/03/2014 13:02:57 Hep A, ped/adol, 2 dose 1 KATARZY[place] [facility] 10/03/2014 13:03:15 Hep A, ped/adol, 2 dose 4 KATARZY[place] [facility] 10/03/2014 13:03:48 Hep B, adolescent or pediatric 6 completed Cynthia [place] [facility] 10/03/2014 13:04:07 Hep B, adolescent or pediatric 7 completed Cynthia [place] [facility] 10/03/2014 13:04:22 HPV, quadrivalent 0 completed Cynthia [place] [facility] 10/03/2014 13:04:53 HPV, quadrivalent 1 completed Cynthia [place] [facility] 10/03/2014 13:05:09 HPV, quadrivalent 3 completed Cynthia [place] [facility] 10/03/2014 13:05:25 Influenza, MDCK, trivalent, PF 9 completed Cynthia [place] [facility] 10/03/2014 13:05:42 Influenza, MDCK, trivalent, PF 0 completed Cynthia [place] [facility] 10/03/2014 13:05:59 Influenza, MDCK, trivalent, PF 3 completed Cynthia [place] [facility] 10/03/2014 13:06:19 MMR 7 completed [place]ATARZY[place] [facility] 10/03/2014 13:06:35 MMR 1 completed Cynthia [place] [facility] 10/03/2014 13:06:56 meningococcal ACWY, unspecified formulation 8 completed Cynthia [place] [facility] 10/03/2014 13:07:18 meningococcal ACWY, unspecified formulation 3 KATARZ[place] [facility] 10/03/2014 13:07:41 Pneumococcal conjugate PCV 13 1 KATARZ[place] [facility] 10/03/2014 13:08:11 Tdap 8 KATARZY[place] [facility] 10/03/2014 13:08:42 varicella 199 8 completed Cynthia KATARZYNA Savage null, [place] - [facility] 10/03/2014 13:09:00 varicella 7 completed Cynthia Savage [place] null, [place] - [facility] 10/03/2014 13:09:19 Past Encounters Encounter ID Performer Location Encounter Start Date Encounter Closed Date Diagnosis/Indication Diagnosis SNOMED-CT Code Diagnosis ICD10 Code Diagnosis Note [id number] Cynthia Savage MA [facility] (Peds) [address] [place] [address] 10/13/2014 15:43:13 10/17/2014 03:50:29 Well child [id number] Overweight [id number] Naomi Lozada [facility] [address] [place] [address] 01/01/2015 10:51:45 01/01/2015 14:32:00 Fracture of base of fifth metatarsal 798190029 Sprain of ankle 99076254 [id number] [facility] (Peds) [address] [place] [address] 03/20/2015 16:00:39 03/20/2015 17:53:24 Well child [id number] Chantel Garcia MD [facility] ([facility]) [address] [place] [address] 11/02/2015 14:35:59 11/02/2015 15:37:14 Irregular periods 99875922 N92.6 Depressed mood 968587686 F32.9 [id number] Gil Zendejas MD [facility] (Peds) [address] [place] [address] 02/09/2016 16:51:05 02/09/2016 17:54:47 Well child 620480683 Z00.129 Overweight 845333979 E66 .3 [id number] Chantel Garcia MD [facility] ([facility]) [address] [place] [address] 09/22/2016 14:45:50 09/22/2016 17:14:10 Contraception care management 575579371 Z30.09 Missed period 71246512 N 92.5 [id number] Leonela Bower [facility] ([facility]) [address] [place] [address] 03/28/2018 13:59:52 04/13/2018 15:32:47 Gynecologic examination 36450706 Z01.411 Venereal d isease screening 358527398 Z11.3 High risk sexual behavior 157241733 Z72.51 X 3 sex partners in last 12 mo. discussed safe sex condom use inconsiste nt use currently. Acute cervicitis 9551710 0 N72 Trichomona l vulvovaginitis 21135481 A59.01 [id number] Leonela Bower [facility] ([facility]) [address] [place] [address] 04/13/2018 12:07:41 04/13/2018 16:33:16 Exposure to sexually transmissible disorder 298138696 Z20.2 with current sex partner of X 12 mo. no longer together offered & refused condoms today r\y many left from last visit. Gonorrhea 75747918 A54.9 Chlamydial infection 105 720437 A74.9 [id number] Queenie Malloy MD [address] [address] 04/16/2019 11:41:08 04/17/2019 08:53:17 Cyst of right Bartholin's gland duct 5066792864 0116227 N75.0 improving continue antibiotic s, and warm sitz bath. [id number] Morris holman MD [facility] [address] [place] [address] 09/15/2021 11:10:36 09/16/2021 09:01:20 Lesion of skin of breast 5599280230 71823 L98.8 x3 mono FH of breast cancerno relief with OTC creamsPEx- upper medial quadrant of L breast with 1.5 in x 0.5 inch area of xerosis with yellow, crusted punctated lesions w/o loculation s, erythema, or drainageor dered US and mammogramt rial hydrocorti sonef/u if no improvemen t, can trial mod potency steroid cream Screening for malignant neoplasm of cervix 824027630 Z12.4 no h/o abnormalsP Ex- cervix friable, thin white discharge surroundin g cervix, CMTsample sent for papchecked for BV, erlin, gono/chla/ trich, HSV Female infertility 56096 08 N97.9 x3 yrsmiscarr iage 2018unprot ected sexual intercours e with partner for 3 yrshe has 4 children from prior relationsh ipsno controltra cking ovulationr efer to [facility] for w/u Depression screening 171 146381 Z13.31 PHQ 3 Health Concerns Section Related Observation LastModified by Organization Detai ls LastModified Time None Recorded Concern Status LastModified by Organization Details LastModified Time None Recorded Advance Directives Directive N: Payers Encounter Date Sequence Insurance Name Policy Number Policy Robles Covered Member ID Robles Member ID Guarantor Name 09/22/2016 1 *SELF PAY* Sandra Sherman 03/28/2018 1 *SELF PAY* Sandra Sherman 04/13/2018 1 *SELF PAY* Sandra Sherman 04/16/2019 2 *SELF PAY* Sandra Sherman 09/15/2021 2 *SELF PAY* Sandra Sherman 09/15/2021 1 [employer] - [facility] - CHOICE PLUS (PPO) Rachana Tenorio [id number] Mayte Sherman Notes Date Note Type Note Provider Name and Address Organization Details Recorded Time 09/22/2016 text/html 21yo here for UP T. Has history of irregular cycles. Has been working on losing weight with the [employer] and cycles have become more regular in the last few months. LMP 08/24/16 and then prior to that 07/24/16. Was worried when her cycle didn't start yesterday (09/21/16). She is still very involved in the [employer] and has a lot of life goals - does not have time for a . Using condoms, but also considering something additional for contraception. Chantel Garcia MD Attn: [address] [place], [address], [place] [facility] 09/22/2016 15:43:37 04/13/2018 text/html patient here r\t + GC& Chlamydia on exam on . [facility] Attn: [address]ing[address] [facility], [place], [address], [place] [facility] 04/13/2018 14:50:03 04/16/2019 text/html patient is a 23 year old female recently seen at [facility] for Bartholin cyst, placed on antibiotics and here for follow up. No vaginal discharge. patient is sexually active ( bisexual) . SAB2. no BCM. Queenie Malloy MD Attn: Accounting[address] [facility], [place], [address], [place] [facility] 04/16/2019 12:40:44 09/15/2021 text/html Pt presents for WWE. Nulliparous. Miscarriage 2018 at 16 wks. Last pap 18 months ago, no h/o abnormals. LMP 08/22/21, monthly menses. Denies hematuria, dysuria, odor, irritation, dyspareunia, urinary frequency/urgency, or discharge. H/o STDs, chlamydia x2. Sexually active with partner. No FH of breast/cervical cancer.Pt reports that her and partner have been trying to conceive for the past 3 yrs. He has 4 children from previous relationships. She has not been on control and is tracking ovulation.C/o skin issues to left breast x3 months. States she thought it was dry skin, has been applying vaseline, cetaphil lotion, and coconut oil w/o relief. She wears supportive bras and breast does not rub with right breast or is irritated by clothing. C/o sharp pain intermittently to left breast, lasts a couple seconds and then goes away, occurs at night twice a month. Denies fevers, chills, night sweats, weight loss, nipple inversion, or peau d'orange appearance. Morris Mendoza MD Attn: Accounting[address] [facility], [place], [address], [place] [facility] 09/16/2021 10:39:38 OBGyn Episode No OBEpisode recorded.
--- OUTSIDE RECORDS SUMMARY | 2024-08-18 08:00 | XMS_ITS | Clinical Summary ---
Author Organization 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 [address] [place] [address] Roxann Hobbs MD Needs Appointment 08/02/[address] [facility] [address] [address] [facility] [address] [place] [address] Shanique Cook RN 08/02/[address] [facility] [address] [address] [facility] [address] [facility] [address] [place] [address] Shanique Cook RN 08/01/[address] [facility] [address] [address] [facility] [place] [address] Shanique Cook RN 07/08/[address] 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 Gender Identity Not on file Sexual Orientation Not on file Plan of Treatment Upcoming Encounters Date Type Department Care Team (Late st Contact Info) Description 09/12/2024 12:45 PM SENIOR NET WEB DEVELOPER Appointment [facility] [place] [address] [place] [address] Heath Waller MD [address] [place] [address] Health Maintenance Due Date Last Done Comments DTAP/TDAP/TD VACCINES (1 - Tdap) 2015 HEPATITIS B VACCINES (1 of 3 - 19+ 3-dose series) 2015 CERVICAL CANCER SCREENING 2017 INFLUENZA VACCINE (#1) 2024 HPV VACCINES Aged Out No longer eligi ble based on patient's age to complete this topic RSV VACCINE (60+ or ) (No Doses Required) Completed
--- OUTSIDE RECORDS SUMMARY | 2024-08-18 08:00 | XMS_ITS | Encounter Summary ---
Author Organization [facility] Address 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
[2024-08-18 08:17] VITALS: BP 115/66; PULSE 83
[2024-08-18 08:31] LABS: Add Urine Microscopic? YES; Appearance Urine Cloudy (Clear); Bacteria Urine 1+ /hpf; Bilirubin Urine Negative (Negative); Blood Urine Negative (Negative); Color Urine Yellow (Yellow); Glucose Urine UA Negative (Negative); Ketones Urine Negative (Negative); Leukocyte Esterase Ur 3+ LEU/UL (Negative); Nitrate Urine Negative (Negative); Non Pathogenic Casts 0-2; Protein Urine Negative (Negative); RBC Urine 0-2 /hpf (0-2); Squamous Epithelial Cell Urine Moderate /hpf (Few); WBC Urine 51-100 /hpf (0-3)
[2024-08-18 08:47] VITALS: BMI 27.6
--- NOTE | 2024-08-18 08:47 | OBADM ---
This patient, Mayte Sherman, admitted to the OB room OB Post 116 for observation. Patient/family oriented to hospital policies and general routines including ID bracelet, bed and alarms, visiting hours, pain management, procedures, bathroom and other care routines, personal items, smoking policy, room service/diet, and visiting hours. Patient/Family are encouraged to report perceived risks to care and to ask questions if they do not understand what they are told or what they should do.
--- NOTE | 2024-09-12 08:26 | PM.OBTRLD ---
OB - Triage/Final Diagnosis Visit Information Comments/Additional reasons for admission: I have assessed the risk for this patient, Mayte Sherman, and determined that she would benefit from observation care. Evaluation Laboratory results: Laboratory Tests 08/18/24 08:18 Urine Color Yellow Urine Appearance Cloudy H Urine pH 8.0 Ur Specific [place] 1.020 Urine Protein Negative Urine Glucose (UA) Negative Urine Ketones Negative Ur Blood (Man) Negative Urine Nitrate Negative Urine Bilirubin Negative Urine Urobilinogen 1.0 Leukocyte Esterase Rfl 3+ H Urine RBC 0-2 Urine WBC 51-100 H Ur Squamous Epith Cells Moderate Urine Bacteria 1+ H Urine Casts 0-2 Final Diagnosis (1) Second trimester bleeding: Code(s): O46.92 - Antepartum hemorrhage, unspecified, second trimester Status: Acute
== END 2024-08-18 10:30 | disposition home or self-care (01) ==
PROVIDERS: Admitting Provider Obstetrics & Gynecology; Visit Provider Obstetrics & Gynecology
DX: O46.8X2 Other antepartum hemorrhage, second trimester (principal); Z3A.20 20 weeks gestation of pregnancy
CPT/HCPCS: 76815; 81001; G0378; G0379

== ENCOUNTER 2024-08-20 10:20 | Outpatient (CLI) | payer BC, SELFPAY ==
--- OUTSIDE RECORDS SUMMARY | 2024-08-20 11:26 | XMS_ITS | Clinical Summary ---
Author Organization [facility] Address [address] [place] [address] Phone Care Team Providers Care House Calls Nurse Practitioner Name Role Phone Unavailable Primary Care Provider Unavailabl e Allergies Active Allergy Reactions Criticality Noted Date Comments Sulfa (Sulfonamide Antibiotics) Other (See Comments) 08/01/2024 Need to clarify with pt Encounters Date Type Department Care Team Description 08/14/2024 External Device Data [facility] AB[facility]CTION Provider, Abstract 08/14/2024 External Device Data [facility] ABSTRACTION Provider, Abstract 08/13/2024 External Device Data [facility] ABSTRACTION Provider, Abstract 08/08/[address] [facility] Maternal and Medicine [facility] [address] [place] [address] Roxann Hobbs MD Needs Appointment 08/02/[address] [facility] Medicine [address] [address] [place] [address] Shanique Cook RN 08/02/[address] [facility] [address] [place] [address] Shanique Cook RN 08/01/[address] [facility]aternal Medicine [address] [place] [address] Shanique Cook RN 07/08/[address] 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 Gender Identity Not on file Sexual Orientation Not on file Plan of Treatment Upcoming Encounters Date Type Department Care Team (Late st Contact Info) Description 09/12/2024 12:45 PM EARLY INTERVENTION SCHOOL PSYCHOLOGIST Appointment [facility] Maternal and Health [facility] [address] [place] [address] Heath Waller MD [address] [place] [address] Health Maintenance Due Date Last Done Comments DTAP/TDAP/TD VACCINES (1 - Tdap) 2015 HEPATITIS B VACCINES (1 of 3 - 19+ 3-dose series) 2015 CERVICAL CANCER SCREENING 2017 INFLUENZA VACCINE (#1) 2024 HPV VACCINES Aged Out No longer eligi ble based on patient's age to complete this topic RSV VACCINE (60+ or ) (No Doses Required) Completed Insurance [employer] [place]
[2024-08-20 11:50] LABS: Thyroid Stimulating Hormone < 0.015 uIU/mL (0.465-4.680)
[2024-08-20 12:11] LABS: HIV 1/2 Ab P24 Ag Result Negative (Negative)
[2024-08-20 13:00] LABS: Free T4 Free Thyroxine 1.47 ng/dL (0.78-2.19)
[2024-08-20 13:55] LABS: Hepatitis B Surface Antigen Negative (Negative); Rubella IgG Antibody 13.7 IU/ML
[2024-08-21 22:03] LABS: Hematocrit 34.5 % (35.0-45.0); Hemoglobin 11.3 g/dL (11.7-15.5); MCV 94.8 fL (80.0-100.0); RDW 12.8 % (11.0-15.0); Red Blood Cell Count 3.64 Million/uL (3.80-5.10)
[2024-08-22 12:17] LABS: Thyroid Peroxidase Antibodies <1 IU/mL (<9)
[2024-08-29 02:03] LABS: Abnormal MSS NO; Abnormal US NO; Advanced Maternal Age NO; Gestational Age in Days 0; Gestational Age in Weeks 21; Microdeletion Not detected; Number of Fetuses 1; Personal/Fam history NO; Sex Chromosome No aneuploidy; Trisomy 13 Negative
[2024-08-29 10:19] LABS: CF Result NEGATIVE; Ethnicity CA
== END 2024-08-20 10:21 | disposition home or self-care (01) ==
LOC: ANHLAB 10:24
PROVIDERS: PCP Obstetrics & Gynecology; Visit Provider Obstetrics & Gynecology
DX: O09.90 Supervision of high risk pregnancy, unspecified, unspecified trimester (principal); E05.90 Thyrotoxicosis, unspecified without thyrotoxic crisis or storm; Z86.39 Personal history of other endocrine, nutritional and metabolic disease
CPT/HCPCS: 36415; 81220; 81243; 81420; 83021; 84439; 84443; 86376; 86703; 86762; 87086; 87340; G0432

== ENCOUNTER 2024-10-07 09:38 | Outpatient (CLI) | payer OTHER, SELFPAY ==
--- OUTSIDE RECORDS SUMMARY | 2024-10-07 10:43 | XMS_ITS | Clinical Summary ---
Author Organization [facility] Address [address] [place] [address] Phone Care Team Providers Care Vp Data Name Role Phone Unavailable Primary Care Provider Unavailabl e Allergies Active Allergy Reactions Criticality Noted Date Comments Sulfa (Sulfonamide Antibiotics) Other (See Comments) 08/01/2024 Rash and shortness of breath Medications methIMAzole (TAPAZOLE) 10 mg tablet Take 10 mg by mouth 2 times daily. Active vits15/iron/foli c/dss ( VIT 20-ZEFD-IWGES-DS S ORAL) Take by mouth. Active Active Problems Estimated Date of Delivery Comme nts Yes 12/31/2024 No known active problems Encounters Date Type Department Care Team Description 09/28/2024 External Device Data STL ABSTRACTION Provider, Abstract 09/27/2024 External Device Data STL ABSTRACTION Provider, Abstract 09/25/2024 External Device Data STL ABSTRACTION Provider, Abstract 09/19/2024 Telephone [facility] [address] [facility] [address] [place] [address] Shanique Cook RN Follow Up 09/12/2024 3:00 PM [employer] Video Visit [facility] [address] [facility] [address] [place] [address] Yun Cox MD Hyperthyroidism (Primary Dx) 09/12/2024 12:45 PM [employer] - 09/12/2024 11:59 PM [employer] Hospital Encounter [facility] Maternal and Health [facility] [address] [place] [address] Heath Rajput MD Discharge Disposition: Home or Self Care 09/12/2024 Travel 09/11/2024 External Device Data STL ABSTRACTION Provider, Abstract 09/10/2024 Chart Note [facility] [address] [place] [address] Shanique Cook RN 08/20/2024 External Device Data STL ABSTRACTION Provider, Abstract 08/14/2024 External Device Data STL ABSTRACTION Provider, Abstract 08/14/2024 External Device Data STL ABSTRACTION Provider, Abstract 08/13/2024 External Device Data STL ABSTRACTION Provider, Abstract 08/08/2024 Telephone [facility] - [facility] [address] [place] [address] Roxann Hobbs MD Needs Appointment 08/02/2024 Chart Note [facility] [address] [place] [address] Shanique Cook RN 08/02/2024 Chart Note [facility] [address] [place] [address] Shanique Cook RN 08/01/2024 Abstract [facility] [address] [place] [address] Shanique Cook RN from Last 3 Months Social History Tobacco Use Types Packs/Day Years Used Date Smoking Tobacco: Never Passive Smoke Exposure: Never Smokeless Tobacco: Never Tobacco Cessation:Counseling Given: Not Answered Alcohol Use Standard Drinks/Week Comments Never 0 (1 standard drink = 0.6 oz pur e alcohol) Estimated Date of Delivery Comme nts Yes 12/31/2024 Sex and Gender Information Value Date Recorded Sex Assigned at Not on file Legal Sex Female 10:50 AM [employer] Gender Identity Not on file Sexual Orientation Choose not to disclose 2024 3:44 PM [employer] Last Filed Vital Signs Vital Sign Reading Time Taken Comments Blood Pressure - - Pulse - - Temperature - - Respiratory Rate - - Oxygen Saturation - - Inhaled Oxygen Concentration - - Weight 88.9 kg (196 lb) 09/12/2024 2:55 PM [employer] Height 175.3 cm (5' 9 ) 09/12/2024 2:55 PM [employer] Body Mass Index 28.94 09/12/2024 2:55 PM [employer] Plan of Treatment Upcoming Encounters Date Type Department Care Team (Late st Contact Info) Description 10/09/2024 4:30 PM CDT Video Visit [facility] and Medicine - [address] [place] [address] Gracie Carney MD [address] [facility] [address] [place] [address] Health Maintenance Due Date Last Done Comments CERVICAL CANCER SCREENING 2017 DTAP/TDAP/TD VACCINES (7 - T d or Tdap) 03/21/2018 03/21/2008, 11/20/2000, 10/16/1997, Additional history exists Preventative Visit-Managed Medicaid 09/16/2022 09/15/2021, 02/09/2016, 03/20/2015, Additional history exists INFLUENZA VACCINE (#1) 2024 3, 06/28/2010, 05/15/2009 HEPATITIS B VACCINES Completed 04/16/1997, 1996, 1996 HPV VACCINES Completed 11/21/2012, 01/2011, 06/28/2010 RSV VACCINE (60+ or ) (No Doses Required) Completed Procedures Procedure Name Priority Date/Time Associated Diagnosis Comments US OB 14+ WKS SINGLE GEST Routine 09/12/2024 1:48 PM [employer] Thyroid disorder screening for malformation using ultrasonics from Last 3 Months Results * US OB 14+ WKS SINGLE GEST (09/12/2024 1:48 PM [employer]) Anatomical Region Laterality Modality Pelvis Ultrasound 09/12/2024 12:5 2 PM [employer] Narrative 09/12/2024 1:49 PM [employer] STL BASIC ----- Pat. Name: MAYTE SHERMAN Study Date: 09/12/2024 12:52pm Pat. NO: [id number] Referring MD: HEATH RAJPUT MD Site: [facility] [employer] Operator: Elly Lopez RDMS : 1995 Age: 29 ----- INDICATION ----- Anatomy Survey declined NIPT Family History of Other Condition pt states she vapes (3 years) - marked on her questionnaire History Marijuana use in 7 years- marked on her questionnaire CODING ----- Diagnoses Z3A.24: Weeks of gestation O99.321-099: History Marijuana use in Z84.89: Family history of other specified conditions Z36.3: Encounter for screening for malformations Z3A.24: Weeks of gestation Procedures 69690: Ultrasound, uterus, real time with image documentation, and maternal evaluation, after first trimester (> or = 14 weeks 0 days), transabdominal approach; single or first gestation HISTORY ----- OB History 2. Para 0 Miscarriages 1 A1 METHOD ----- Transabdominal ultrasound examination ----- Quezada . Number of fetuses: 1 DATING ----- LMP on: 03/18/2024 Cycle: regular cycle GA by LMP 25 w + 3 d TAMMY by LMP: 12/23/2024 Method of dating: based on stated TAMMY Prior assessment by: First US Study, Outside US GA by prior assessment 24 w + 2 d TAMMY by prior assessment: 12/31/2024 Ultrasound examination on: 09/12/2024 GA by U/S based upon: AC, BPD, EFW, Femur, HC GA by U/S 25 w + 0 d TAMMY by U/S: 12/26/2024 Assigned: based on stated TAMMY (First US Study, Outside US), selected on 09/12/2024 Assigned GA 24 w + 2 d Assigned TAMMY: 12/31/2024 BIOMETRY ----- BPD 58.4 mm 23w 6d 29% Hadlock OFD 77.0 mm 25w 2d 82% Naresh HC 217.3 mm 23w 5d 15% Hadlock Cerebellum tr 28.4 mm 26w 2d 91% Arvind AC 210.0 mm 25w 4d 79% Hadlock Femur 48.7 mm 26w 3d 92% Hadlock Humerus 44.2 mm 26w 2d 93% Naresh HC / AC 1.03 5% Nicolaides Weight Calculation: EFW 825 g 25w 2d 91% Hadlock EFW (lb,oz) 1 lb 13 oz EFW by Hadlock ([id number]) Head / Face / Neck Biometry: Computer Assembler 4.5 mm CM 4.5 mm 11% Nicolaides Inner IOD 17.0 mm Extremities / Bony Struc Biometry: FL / BPD 0.83 FL / HC 0.22 FL / AC 0.23 Tibia 38.6 mm 24w 5d 60% Naresh GENERAL EVALUATION ----- Cardiac activity present. FHR 144 bpm. movements: visualized. Presentation: cephalic Placenta: Placental site: posterior Umbilical cord: Cord vessels: 3 vessel cord. Insertion site: placental insertion: normal Amniotic fluid: Amount of AF: normal amount. MVP 5.0 cm ANATOMY ----- The following structures appear normal: Head / Neck Cranium. Lateral ventricles. Choroid plexus. Midline falx. Cavum septi pellucidi. Cerebellum. Cisterna magna. Face Lips. Profile. Nose. Heart / Thorax 4-chamber view. RVOT view. LVOT view. 3-vessel view. 1-nythye-pivxynz view. Situs. High short axis view. Cardiac rhythm. Diaphragm. Abdomen Abdominal wall. Cord insertion. Stomach. Kidneys. Bladder. Genitals. Spine Cervical spine. Thoracic spine. Lumbar spine. Sacral spine. Extremities / Arms. Right hand. Left hand. Legs. Right foot. Left foot. Skeleton sex: male. MATERNAL STRUCTURES ----- Cervix Visualized Approach - Transabdominal: Cervical length 44.6 mm Right Ovary Normal Size 27 mm x 25 mm x 16 mm. Vol 5.3 cm Left Ovary Not visualized GROWTH OVERVIEW ----- Exam date GA BPD (mm) HC (mm) AC (mm) FL (mm) HL (mm) EFW (g) 09/12/2024 24w 2d 58.4 29% 217.3 15% 210.0 79% 48.7 92% 44.2 93% 825 91% COMMENT ----- Patient's name and date of were confirmed by the vendor manager prior to the exam IMPRESSION ----- 1. Single living fetus with a gestational age of 24w 2d based on the reported clinical dates. 2. Current growth parameters are consistent with the stated EDC. The fetus is appropriate for gestational age in size at the 91% (825 g). 3. Basic anatomic survey is unremarkable. No gross structural abnormalities noted. No sonographic markers for aneuploidy noted. 4. Amniotic fluid volume is normal for gestational age. 5. The cervical length is within normal range for gestational age. 6. The right ovary appear normal in size and shape. The left ovary is not visualized. 7. Placenta is posterior . No previa/not low-lying. The placenta cord insertion is normal. Recommendations: - Further ultrasounds based on clinical indication. - Recommend interval third trimester growth and anatomy at 32 weeks. Thank you for allowing us to participate in the care of this patient. Procedure Note Roxann Hobbs MD - 09/12/2024 STL BASIC ----- Pat. Name:Serena SHERMAN Date:09/12/2024 12:52pm Pat. NO: [id number] MD:HEATH RAJPUT [facility]Elly Lopez RDMS :1995Age:29 ----- INDICATION ----- Anatomy Survey declined NIPT Family History of Other Condition pt states she vapes(3 years) - marked on her questionnaire History Marijuana use in 7 years- marked onher questionnaire CODING ----- Diagnoses Z3A.24: Weeks of gestation O99.321-099: History Marijuana use in Z84.89: Family history of other specifiedconditions Z36.3: Encounter for screening formalformations Z3A.24: Weeks of gestation Procedures [id number]: Ultrasound, uterus, real time withimage documentation, and maternal evaluation, after first trimester (> or = 14 weeks 0 days),transabdominal approach; single or first gestation HISTORY ----- OB History 2. Para 0 Miscarriages 1 A1 METHOD ----- Transabdominal ultrasound examination ----- Quezada . Number of fetuses: 1 DATING ----- LMP on:03/18/2024 Cycle:regular cycle GA by LMP25 w + 3 d TAMMY by LMP:12/23/2024 Method of dating:based on stated TAMMY Prior assessment by:First US Study, Outside US GA by prior [id number] w + 2 d TAMMY by prior assessment:12/31/2024 Ultrasound examination on:09/12/2024 GA by U/S based upon:AC, BPD, EFW, Femur, HC GA by U/S25 w + 0 d TAMMY by U/S:12/26/2024 Assigned:based on stated TAMMY (First US Study, Outside US), selected on09/12/2024 Assigned GA24 w + 2 d Assigned TAMMY:12/31/2024 BIOMETRY ----- BPD 58.4 mm 23w 6d29% Hadlock OFD 77.0 mm 25w 2d82% Naresh HC 217.3 mm 23w 5d15% Hadlock Cerebellum tr 28.4 mm 26w 2d91% Samuels AC 210.0 mm 25w 4d79% Hadlock Femur 48.7 mm 26w 3d92% Hadlock Humerus 44.2 mm 26w 2d93% Naresh HC / AC 1.03 5%Nicolaides Weight Calculation: EFW 825 g 25w 2d 91%Hadlock EFW (lb,oz) 1 lb 13 oz EFW by Hadlock ([id number]) Head / Face / Neck Biometry: Computer Assembler 4.5 mm CM 4.5 mm 11%Nicolaides Inner IOD 17.0 mm Extremities / Bony Struc Biometry: FL / BPD 0.83 FL / HC 0.22 FL / AC 0.23 Tibia 38.6 mm 24w 5d 60%Naresh GENERAL EVALUATION ----- Cardiac activity present. FHR 144 bpm. movements: visualized.Presentation: cephalic Placenta: Placental site: posterior Umbilical cord: Cord vessels: 3 vessel cord. Insertion site: placentalinsertion: normal Amniotic fluid: Amount of AF: normal amount. MVP 5.0 cm ANATOMY ----- The following structures appear normal: Head / Neck Cranium. Lateral ventricles. Choroid plexus.Midline falx. Cavum septi pellucidi. Cerebellum. Cisterna magna. Face Lips. Profile. Nose. Heart / Thorax 4-chamber view. RVOT view. LVOT view. 3-vesselview. 5-dwsssq-qlaesip view. Situs. High short axis view. Cardiac rhythm. Diaphragm. Abdomen Abdominal wall. Cord insertion. Stomach. Kidneys.Bladder. Genitals. Spine Cervical spine. Thoracic spine. Lumbar spine.Sacral spine. Extremities / Arms. Right hand. Left hand. Legs. Right foot.Left foot. Skeleton sex: male. MATERNAL STRUCTURES ----- Cervix Visualized Approach - Transabdominal: Cervical length 44.6mm Right Ovary Normal Size 27 mm x 25 mm x 16 mm. Vol 5.3 cm Left Ovary Not visualized GROWTH OVERVIEW ----- Exam date GA BPD (mm) HC (mm) AC (mm) FL(mm) HL (mm) EFW (g) 09/12/2024 24w 2d 58.4 29% 217.3 15% 210.0 79%48.7 92% 44.2 93% 825 91% COMMENT ----- Patient's name and date of were confirmed by the vendor manager priorto the exam IMPRESSION ----- 1. Single living fetus with a gestational age of 24w 2d based on thereported clinical dates. 2. Current growth parameters are consistent with the stated EDC. The fetusis appropriate for gestational age in size at the 91% (825 g). 3. Basic anatomic survey is unremarkable. No gross structuralabnormalities noted. No sonographic markers for aneuploidy noted. 4. Amniotic fluid volume is normal for gestational age. 5. The cervical length is within normal range for gestational age. 6. The right ovary appear normal in size and shape. The left ovary is notvisualized. 7. Placenta is posterior . No previa/not low-lying. The placenta cordinsertion is normal. Recommendations: - Further ultrasounds based on clinical indication. - Recommend interval third trimester growth and anatomy at 32weeks. Thank you for allowing us to participate in the care of this patient. us Heath Sridhar MD ORDERABLES Final Result from Last 3 Months Insurance MEDICAID
--- OUTSIDE RECORDS SUMMARY | 2024-10-07 10:43 | XMS_ITS | Data Portability ---
Author Organization [facility] [place] Gutierrez Address [address] [place] [address] Care Team Providers [facility] Receiving Clerk Name Role Phone NADIA HAN Primary Care Provider [phone] Assessment Encounter Date Assessment Date Assessment LastModified [...] 3. RTC if desires to use IUD jeremiah Not available 09/22/2016 15:42:45 04/13/2018 04/13/2018 LMP WAS - WNL FLOW [email or web address] Not available 04/13/2018 12:53:39 Plan of Treatment Reminders Order Date Submit Date Provider Last Modified By Organization Details Last Modified Time Details Appointments None record ed. Lab cytolo gy report , thin prep, smear or scrapi ng, cervic al or vagina l 2021 022 [facility], [address], [address], [place], [address], 2 11:36:42 bacter ial vagino sis score, AVILA+pr obe, vagina l fluid (OBS) 2021 022 [facility], [address] [facility], [address], [place], [address], 2 10:36:39 wet mount, vagina l 2017 018 [email or web address] Private Limitedorder s In-Office Order, Internal Use Only DO Not Attach Compendium DO Not Attach Compendium, Do Not Delete/merge, [id number] 18:53:36 vance wet prep 2017 018 [email or web address] Private Limitedorder s In-Office Order, Internal Use Only DO Not Attach Compendium DO Not Attach Compendium, Do Not Delete/merge, [id number] 18:53:36 pap, IG + CT/NG 2017 018 [facility], [address], [address], [place], [address], 8 17:10:29 RPR (rapid plasma reagin ), serum 2017 018 [facility], [address] [facility], [address], [place], [address], 8 17:11:44 HIV (1+2) Ab screen , serum 2017 018 [facility], [address], [address], [place], [address], 8 17:30:42 hepati tis panel (A+B+C ), acute, serum 2017 018 [facility], [address], [address], [place], [address], 8 17:11:42 hsv-2 (herpe s simple x virus type 2) igg Ab, serum 2017 018 [email or web address] [facility] ([facility]), [address], [place], [address], 8 17:30:43 pregna ncy test, urine 2016 017 [email or web address] In-Office Order, Internal Use Only DO Not Attach Compendium DO Not Attach Compendium, Do Not Delete/merge, [id number] 15:43:20 Referral obstet rician and gyneco logist referr al 2021 [facility], [address] [place], [address], 2 14:14:11 Procedures None record ed. Surgeries None record ed. Imaging US, breast , bilate ral, comple te 2021 022 [facility], [facility], [place], [address], 2 12:14:49 MAMMO, diagno stic, bilate ral 2021 022 [facility], [facility], [place], [address], 2 12:14:49 Medication Orders hydroc ortiso ne 2.5 % topica l ointme nt 2021 022 [id number], [address], [place], [place], [id number], 2 12:17:38 azithr omycin 500 mg tablet 2017 018 [facility] #[id number], [address], [place], [place], [id number], 2 11:28:27 flucon azole 150 mg tablet 2017 018 [facility] #[id number], [address], [place], [place], [id number], 2 11:28:44 ceftri axone 250 mg soluti on for inject ion 2017 018 [email or web address] Not available 2 11:28:33 metron idazol e 500 mg tablet 2017 018 [facility] #[id number], [address], [place], [place], [id number], 2 11:28:55 ceftri axone 250 mg soluti on for inject ion 2017 018 [email or web address] Not available 2 11:28:33 flucon azole 150 mg tablet 2017 018 [email or web address] Not available 11:28:44 Patient TargetsNo targets recorded. Patient InstructionsNo instructions recorded. 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 Referral for Female infertility Referring Physician: Nadia Han, Family Medicine, Encounter Date: 09/15/2021 Results Created Date Observation Date Name Description Value Unit Range Abnormal Flag Note LastModifiedBy Organization Detail LastModifiedTime 09/23/19 17 09/22/2016 pregn octavio test, urine HCG negati ve Not Available In-Office Order Internal Use Only DO Not Attach Compendium DO Not Attach Compendium, Do Not Delete/merge, [id number] 09/22/2016 15:06:05 03/28/20 18 03/29/2018 hepat itis panel (A+B+ C), acute , serum hep A Ab, IgM Negati ve negati ve Not Available [facility] ([facility]) [address], [place], [address], 03/29/2018 17:11:42 03/28/20 18 03/29/2018 hepat itis panel (A+B+ C), acute , serum HBsAg screen Negati ve negati ve Not Available [facility] ([facility]) [address] [place], [address], 03/29/2018 17:11:42 03/28/20 18 03/29/2018 hepat itis panel (A+B+ C), acute , serum hep B core Ab, IgM Negati ve negati ve Not Available [facility] ([facility]) [address] [place], [address], 03/29/2018 17:11:42 03/28/20 18 03/29/2018 hepat itis [...] ion test (5507 13). Not Available [facility] ([facility]) [address] [facility], [place], [address], 03/29/2018 17:11:42 03/28/20 18 03/29/2018 hsv (1+2) [...] eric to HSV-1 . Not Available [facility] ([facility]) [address] [place], [address], 03/29/2018 17:11:43 03/28/20 18 03/29/2018 hsv (1+2) [...] eric to HSV-2 . Not Available [facility] ([facility]) [address] [facility], [place], [address], 03/29/2018 17:11:43 03/28/20 18 03/29/2018 hsv (1+2) igg Ab, serum hsv-2 IgG supplemental test Positi ve negati ve abnormal HSV-2 IgG HSV-2 IgG Type Speci fic Confi rmati on Inter preta tion ----- ----- ----- ----- ----- ----- ----- ----- ----- ----- ----- Posit luca/E quivo nadya Posit luca Indic ates the prese nce [...] ----- ----- ----- ----- Not Available [facility] ([facility]) [address] [place], [address], 03/29/2018 17:11:43 03/28/20 18 03/29/2018 HIV 1+2 AB + HIV 1 p24 Ag, quali tativ e immun oassa y, serum HIV screen 4TH generation wrfx Non Reacti ve non reacti ve Not Available [facility] ([facility]) [address] [place], [address], 03/29/2018 17:11:43 03/28/20 18 03/29/2018 RPR (rapi d plasm a reagi n), serum RPR Non Reacti ve non reacti ve Not Available [facility] ([facility]) [address] [facility], [place], [address], 03/29/2018 17:11:43 03/29/20 18 04/02/2018 pap, IG + CT/NG diagnosis: Commen t NEGASHLEY LUCA FOR INTRA EPITH ELIAL LESIO N AND KARISHMA ZAMARRIPA . CELLU LAR BATISTA ES ASSOC IATED WITH HERPE S SIMPL EX ARE PRESE NT. THIS SPECI MEN WAS RESCR EENED PART OF OUR QUALI TY CONTR OL PROGR AM. Not Available [facility] ([facility]) [address] [place], [address], 04/02/2018 17:10:29 03/29/20 18 04/02/2018 pap, IG + CT/NG specimen adequacy: Commen t Satis facto ry for evalu ation . Endoc ervic al and/o r squam ous metap lasti c cells (endo cervi nadya compo nent) are prese nt. Not Available [facility] ([facility]) [address] [place], [address], 04/02/2018 17:10:29 03/29/20 18 04/02/2018 pap, IG + CT/NG clinician provided ICD10: Hernando t Z01.4 11 Not Available [facility] ([facility]) [address] [facility], [place], [address], 04/02/2018 17:10:29 03/29/20 18 04/02/2018 pap, IG + CT/NG performed by: Hernando Lema , Cytot echno logis t (ASCP ) Not Available [facility] ([facility]) [address] [place], [address], 04/02/2018 17:10:29 03/29/20 18 04/02/2018 pap, IG + CT/NG QC reviewed by: Hernando [email or web address], Cytot echno logis t (ASCP ) Not Available [facility] ([facility]) [address] [place], [address], 04/02/2018 17:10:29 03/29/20 18 04/02/2018 pap, IG + CT/NG . . Not Available [facility] ([facility]) [address] [facility], [place], [address], 04/02/2018 17:10:29 03/29/20 18 04/02/2018 pap, IG [...] ts do occur . Not Available [facility] ([facility]) [address] [facility], [place], [address], 04/02/2018 17:10:29 03/29/20 18 04/02/2018 pap, IG + CT/NG test methodology: Hernando ricks This liqui d based ThinP rep(R ) pap test was scree paulie with the use of an image guide felix callejas. Not Available [facility] ([facility]) [address] [facility], [place], [address], 04/02/2018 17:10:29 03/29/20 18 04/02/2018 pap, IG + CT/NG chlamydia, nuc. acid amp Positi ve negati ve abnormal Not Available [facility] ([facility]) [address] [facility], [place], [address], 04/02/2018 17:10:29 03/29/20 18 04/02/2018 pap, IG + CT/NG gonococcus, nuc. acid amp Positi ve negati ve abnormal Not Available [facility] ([facility]) [address] [facility], [place], [address], 04/02/2018 17:10:29 03/29/20 18 03/29/2018 vance wet prep Yeast positi ve Not Available In-Office Order Internal Use Only DO Not Attach Compendium DO Not Attach Compendium, Do Not Delete/merge, [id number] 03/29/2018 18:51:25 03/29/20 18 03/29/2018 wet mount , vagin al Clue Cells positi ve Not Available In-Office Order Internal Use Only DO Not Attach Compendium DO Not Attach Compendium, Do Not Delete/merge, [id number] 03/29/2018 18:51:24 03/29/20 18 03/29/2018 wet mount , vagin al Trichomonas positi ve Not Available In-Office Order Internal Use Only DO Not Attach Compendium DO Not Attach Compendium, Do Not Delete/merge, [id number] 03/29/2018 18:51:24 09/15/19 22 09/18/2021 IGP, APTIM A HPV, RFX 16/18 ,45 HPV aptima Negati ve negati ve This nucle ic acid ampli ficat ion test detec ts fourt een high- risk HPV types (16,1 8,31, 33,35 ,39,4 5,51, 52,56 ,58,5 9,66, 68) witho ut diffe renti ation . Not Available [facility] ([facility]) [address] [facility], [place], [address], 09/20/2021 11:36:42 09/15/19 22 09/20/2021 IGP, APTIM A HPV, RFX 16/18 ,45 diagnosis: Hernando SEGOVIA FOR INTRA EPITH ELIAL YULIA N OR KARISHMA MARILOU . Not Available [facility] ([facility]) [address] [place], [address], 09/20/2021 11:36:42 09/15/19 22 09/20/2021 IGP, APTIM A HPV, RFX 16/18 ,45 specimen adequacy: Hernando t Satis facto ry for evalu ation . Endoc ervic al and/o r squam ous metap lasti c cells (endo cervi nadya compo nent) are prese nt. Not Available [facility] ([facility]) [address] [place], [address], 09/20/2021 11:36:42 09/15/19 22 09/20/2021 IGP, APTIM A HPV, RFX 16/18 ,45 clinician provided ICD10: Hernando ricks Z12.4 Not Available [facility] ([facility]) [address] [place], [address], 09/20/2021 11:36:42 09/15/19 22 09/20/2021 IGP, APTIM A HPV, RFX 16/18 ,45 performed by: Jennie Alejandra (ASCP ) Not Available [facility] ([facility]) [address] [place], [address], 09/20/2021 11:36:42 09/15/19 22 09/20/2021 IGP, APTIM A HPV, RFX 16/18 ,45 . . Not Available [facility] ([facility]) [address] [place], [address], 09/20/2021 11:36:42 09/15/19 22 09/20/2021 IGP, APTIM [...] ts do occur . Not Available [facility] ([facility]) [address] [place], [address], 09/20/2021 11:36:42 09/15/19 22 09/20/2021 IGP, APTIM A HPV, RFX 16/18 ,45 test methodology: Hernando t This liqui d based ThinP rep(R ) pap test was scree paulie with the use of an image guide felix callejas. Not Available [facility] ([facility]) [address] [place], [address], 09/20/2021 11:36:42 09/15/19 22 09/20/2021 NUSWA B VG+, HSV atopobium vaginae High - 2 score abnormal Not Available [facility] ([facility]) [address] [place], [address], 09/21/2021 10:36:39 09/15/19 22 09/20/2021 NUSWA B VG+, HSV bvab 2 High - 2 score abnormal Not Available [facility] ([facility]) [address] [place], [address], 09/21/2021 10:36:39 09/15/19 22 09/20/2021 NUSWA B [...] Drug Admin istra tion. Not Available [facility] ([facility]) [address] [place], [address], 09/21/2021 10:36:39 09/15/19 22 09/20/2021 NUSWA B VG+, HSV erlin albicans, AVILA Negati ve negati ve Not Available [facility] ([facility]) [address] [place], [address], 09/21/2021 10:36:39 09/15/19 22 09/20/2021 NUSWA B VG+, HSV erlin glabrata, AVILA Negati ve negati ve Not Available [facility] ([facility]) [address] [place], [address], 09/21/2021 10:36:39 09/15/19 22 09/20/2021 NUSWA B VG+, HSV trich vag by AVILA Positi ve negati ve abnormal Not Available [facility] ([facility]) [address] [place], [address], 09/21/2021 10:36:39 09/15/19 22 09/20/2021 NUSWA B VG+, HSV chlamydia trachomatis, AVILA Positi ve negati ve abnormal Not Available [facility] ([facility]) [address] [place], [address], 09/21/2021 10:36:39 09/15/19 22 09/20/2021 NUSWA B VG+, HSV neisseria gonorrhoeae, AVILA Negati ve negati ve Not Available [facility] ([facility]) [address] [facility], [place], [address], 09/21/2021 10:36:39 09/15/19 22 09/21/2021 NUSWA B VG+, HSV hsv 1 AVILA Negati ve negati ve Not Available [facility] ([facility]) [address] [facility], [place], [address], 09/21/2021 10:36:39 09/15/19 22 09/21/2021 NUSWA B VG+, HSV hsv 2 AVILA Negati ve negati ve Not Available [facility] ([facility]) [address] [facility], [place], [address], 09/21/2021 10:36:39 Result Notes None recorded. Problems Name Problem SNOMED Code Status Onset Date Resolution Date Notes Provider Name and Address Organization Details Recorded Time Overweight 524300415 Active Gil Zendejas MD Attn: Harinder allen,[address] [place], [address], [place] [facility] 6 17:43:37 Fracture of base of fifth metatarsal 341382560 Completed 09/22/2016 Chantel Garcia MD Attn: Harinder allen,[address] [place], [address], [place] [facility] 7 15:12:06 Sprain of ankle 50193885 Completed 09/22/2016 Chantel Garcia MD Attn: Harinder allen,[address] [place], [address], [place] [facility] 7 15:12:05 Irregular periods 71173274 Active Xiomy Devi [place], [place] [facility] 6 17:14:33 Depressed mood 586942683 Active Xiomy Devi [place], [place] [facility] 6 17:14:33 Problem Notes None recorded. Medical Equipment None Reported. Allergies Allergen ID Allergen Name Allergen Category Reaction Reaction Severity Criticality Documentation Date Start Date Code Code System Note Provider Name and Address Organization Details Recorded Time 99295 Substance with sulfonami de structure and antibacte rial mechanism of action (substanc e) medicatio n itching moderate Not available 01/01/2015 22226 8003 SNOMED Not Available Not Available Not [...] Not Available Vitals Date Recorded Body height Body mass index (BMI) Body weight Systolic blood pressure Diastolic blood pressure Provider Name and Address Organization Details Last Updated DateTime 03/28/2018 175.26 cm 27.9 kg/m2 31135.96 g 120 mm[Hg] 70 mm[Hg] Mayra Young [place] [facility] 8 14:47:29 Date Recorded Body height Body mass index (BMI) Body weight Systolic blood pressure Diastolic blood pressure Provider Name and Address Organization Details Last Updated DateTime 04/13/2018 175.26 cm 27.4 kg/m2 60103.03 g 110 mm[Hg] 60 mm[Hg] Benita Lamas MA [facility] - [facility] 8 12:44:03 Date Recorded Body height Body mass index (BMI) Body weight Oxygen saturation Oxygen saturation in Arterial blood by Pulse oximetry Heart rate Systolic blood pressure Diastolic blood pressure Provider Name and Address Organization Details Last Updated DateTime 9 175.26 cm 31.3 kg/m2 68115.9 8 g 98 % 98 % 83 /min 122 mm[Hg] 80 mm[Hg] Catia Martinez [facility] 9 11:57:40 Date Recorded Body weight Pain severity - 0-10 verbal numeric rating [Score] - Reported Oxygen saturation Oxygen saturation in Arterial blood by Pulse oximetry Heart rate Body temperature Systolic blood pressure Diastolic blood pressure Provider Name and Address Organization Details Last Updated DateTime 2 35483.2 1 g 0 99 % 99 % 114 /min 98.9 [degF] 110 mm[Hg] 62 mm[Hg] Ines Mccall RN [facility] 2 11:37:51 Date Recorded Heart rate Provider Name an d Address Organization Details Last Updated DateTime 09/15/2021 90 /min AMARILYS GONSALEZ Attn: Accounting,[address] [place], [address], [facility] 09/15/2021 13:53:23 Date Recorded Body height Body weight Body mass index (BMI) Systolic blood pressure Diastolic blood pressure Provider Name and Address Organization Details Last Updated DateTime 09/22/2016 170.815 cm 44575.98 g 30.6 kg/m2 108 mm[Hg] 66 mm[Hg] Mayra Young MA [facility] 7 15:03:44 Social History Question Answer Notes LastModified by Organizat ion Details LastModified Time Tobacco Smoking Status Current Every Day Smoker Mayra Young MA null, [facility] 03/28/2018 14:48:33 Do You Have An Advance Directive? No Information not available 09/15/2021 What Is Your Level Of Alcohol Consumption? None [email or web address] Information not available 10/13/2014 Animal Exposure? No [email or web address] Inform ation not available 10/13/2014 Are You Blind Or Do You Have Difficulty Seeing? No Information not available 09/15/2021 Are You Or Have You Been Involved With Bullying? No [email or web address] Information not available 10/13/2014 What Is Your Level Of Caffeine Consumption? Moderate [email or web address] Information not available 10/13/2014 How Much Tobacco Do You Chew? None [email or web address] Information not available 10/13/2014 What Type Of Life Assurance Representative Do You Use? None [email or web address] Information not available 02/09/2016 In The 14 [...] Type Of Diet Are You Following? REGULAR [email or web address] Information not available 10/13/2014 Have There Been Any Changes To Your Family Or Social Situation? No [email or web address] Information no t available 02/09/2016 What Is The Fluoride Status Of Your Home? Fluoridated [email or web address] Information not available 10/13/2014 Are There Any Guns Present In Your Home? No [email or web address] Information not available 10/13/2014 What Is Your Home Situation? Mother Rachana [email or web address] Information not available 10/13/2014 Car Seat Type Or Seat Belt? Seat Belt [email or web address] Information not available 02/09/2016 Parent Involvement? Both Parents Involved [email or web address] Information not available 10/13/2014 Riding In Car Front Seat? Yes Information not available 02/09/2016 Mosquito Repellent Used Routinely Yes [email or web address] Information not available 10/13/2014 What Was The Date Of Your Most Recent Tobacco Screening? 03/28/2018 Information not available 02/14/2019 What Is Your Current Pack Years? [email or web address] Information not available 09/15/2021 Pool Exposure Yes [email or web address] Informati on not available 10/13/2014 Do You Use Your Seat Belt Or Car Seat Routinely? Yes [email or web address] Information not available 10/13/2014 Are You Sexually Active? No [email or web address] Information not available 10/13/2014 Do You Have Any Siblings? 3 [email or web address] Information not available 10/13/2014 Do You Have Smoke And Carbon Monoxide Detectors In Your Home? Yes [email or web address] Information not available 10/13/2014 At What Age Did You Start Smoking Tobacco? 18 Information not available 09/15/2021 Are You Passively Exposed To Smoke? No [email or web address] Information no t available 10/13/2014 How Much Tobacco Do You Smoke? 0.5 PPD Information not available 09/15/2021 What Types Of Sporting Activities Do You Participate In? Basketball & Track [email or web address] Information not available 10/13/2014 Do You Use Any Illicit Or Recreational Drugs? No Information not available 09/15/2021 Do You Use Sunscreen Routinely? No Information not available 10/13/2014 Has Tobacco Cessation Counseling Been Provided? Yes Information not available 09/15/2021 How Many Years Have You Smoked Tobacco? 5 Information not available 09/15/2021 Year In School HS Grad [email or web address] Informati on not available 02/09/2016 Do You Or Have You Ever Used Any Other Forms Of Tobacco Or Nicotine? No Information not available 09/15/2021 Sex: Unknown Functional Status Question Answer Note LastModified by Organization D etails LastModified Time Are you able to care for yourself? Yes Information not available 09/15/2021 What is your exercise level? Moderate [email or web address] Information not available 10/13/2014 Mental Status None recorded. Family History Relationship Description Onset Age of this Age Resolved Age Notes LastModified by Organization Details LastModified Time Father No current problems or disability [email or web address] Not available 08/2016 15:00:57 Mother No current problems or disability [email or web address] Not available 08/2016 15:00:57 Mother Hypertensive disorder [email or web address] Not available 09/22 15:04:16 Mother Mitral valve [...] Bedwetting N Vision or Eye Problems N Heart Problems/Murmur N Seizures/Epilepsy N Head Injury/Concussion N Cancer N Asthma [...] Address Organization Details Recorded Time DTaP,IPV,Hib,HepB 7 david [place] null, [place] [facility] 10/03/2014 13:01:09 RFuJ-Dbn-DHP 7 david [place], [place] [facility] 10/03/2014 13:01:28 AHqY-Cco-UXI 7 david [place], [place] [facility] 10/03/2014 13:02:15 DTP-Hib 8 david [place], [place] [facility] 10/03/2014 13:02:39 DTP 1 completed Cynthia [place] [facility] 10/03/2014 13:02:57 Hep A, ped/adol, 2 dose 1 david [place] [facility] 10/03/2014 13:03:15 Hep A, ped/adol, 2 dose 4 completed Cynthia [place] [facility] 10/03/2014 13:03:48 Hep B, adolescent or pediatric 6 david [place] [facility] 10/03/2014 13:04:07 Hep B, adolescent or pediatric 7 david [place] [facility] 10/03/2014 13:04:22 HPV, quadrivalent 0 david [place], [place] [facility] [...] - [facility] 10/03/2014 13:06:35 MMR 1 completed [place]ARZ[place]NA [place] [facility] 10/03/2014 13:06:56 meningococcal ACWY, unspecified formulation 8 completed [place] [facility] 10/03/2014 13:07:18 meningococcal ACWY, unspecified formulation 3 completed [place] [facility] 10/03/2014 13:07:41 Pneumococcal conjugate PCV 13 1 K[place] [facility] 10/03/2014 13:08:11 Tdap 8 K[place] [facility] 10/03/2014 13:08:42 varicella 8 [place] [facility] 10/03/2014 13:09:00 varicella 7 [place] [facility] 10/03/2014 13:09:19 Past Encounters Encounter ID Performer Location Encounter Start Date Encounter Closed Date Diagnosis/Indication Diagnosis SNOMED-CT Code Diagnosis ICD10 Code Diagnosis Note [id number] Cynthia Savage MA [facility] (Peds) [address] [place] [address] 10/13/2014 15:43:13 10/17/2014 03:50:29 Well child [id number] Overweight 068084030 [id number] Naomi Lozada [facility] [address] [place] [address] 01/01/2015 10:51:45 01/01/2015 14:32:00 Fracture of base of fifth metatarsal 366142612 Sprain of ankle 46860522 [id number] [facility] ([facility]) [address] [place] [address] 03/20/2015 16:00:39 03/20/2015 17:53:24 Well child [id number] Chantel Garcia MD [facility] (BREWERY WORKER) [address] [place] [address] 11/02/2015 14:35:59 11/02/2015 15:37:14 Irregular periods 52754262 N92.6 Depressed mood 061804527 F32.9 [id number] Gil Zendejas MD [facility] (Peds) [address] [place] [address] 02/09/2016 16:51:05 02/09/2016 17:54:47 Well child 517087372 Z00.129 Overweight 754199308 E66 .3 [id number] Chantel Garcia MD [facility] (BREWERY WORKER) [address] [place] [address] 09/22/2016 14:45:50 09/22/2016 17:14:10 Contraception care management 429903442 Z30.09 Missed period 38541383 N 92.5 [id number] [facility] [address] [place] [address] 03/28/2018 13:59:52 04/13/2018 15:32:47 Gynecologic examination 35594027 Z01.411 Venereal d isease screening 470002961 Z11.3 High risk sexual behavior 043846486 Z72.51 X 3 sex partners in last 12 mo. discussed safe sex condom use inconsiste nt use currently. Acute cervicitis 5785100 0 N72 Trichomona l vulvovaginitis [id number] A59.01 [id number] EMIGDIO [facility] ([facility] WORK[facility]) [address] [place] [address] 04/13/2018 12:07:41 04/13/2018 16:33:16 Exposure to sexually transmissible disorder [id number] Z20.2 with current sex partner of X 12 mo. no longer together offered & refused condoms today r\y many left from last visit. Gonorrhea [id number] A54.9 Chlamydial infection 105 [id number] A74.9 [id number] Queenie Malloy MD [address] [address] 04/16/2019 11:41:08 04/17/2019 08:53:17 Cyst of right Bartholin's gland duct [id number] N75.0 improving continue antibiotic s, and warm sitz bath. [id number] Morris holman MD On license of [facility] [address] [place] [address] 09/15/2021 11:10:36 09/16/2021 09:01:20 Lesion of skin of breast [id number] 28209 L98.8 x3 mono FH of breast cancerno relief with OTC creamsPEx- upper medial quadrant of L breast with 1.5 in x 0.5 inch area of xerosis with yellow, crusted punctated lesions w/o loculation s, erythema, or drainageor dered US and mammogramt rial hydrocorti sonef/u if no improvemen t, can trial mod potency steroid cream Screening for malignant neoplasm of cervix [id number] Z12.4 no h/o abnormalsP Ex- cervix friable, thin white discharge surroundin g cervix, CMTsample sent for papchecked for BV, erlin, gono/chla/ trich, HSV Female infertility [id number] 08 N97.9 x3 yrsmiscarr iage 2018unprot ected sexual intercours e with partner for 3 yrshe has 4 children from prior relationsh ipsno controltra cking ovulationr efer to [employer] WORKER for w/u Depression screening 171 [id number] Z13.31 PHQ 3 Health Concerns Section Related Observation LastModified by Organization Detai ls LastModified Time None Recorded Concern Status LastModified by Organization Details LastModified Time None Recorded Advance Directives Directive N: Payers Encounter Date Sequence Insurance Name Policy Number Policy Robles Covered Member ID Robles Member ID Guarantor Name 09/22/2016 1 *SELF PAY* Sandra iraheta Lane 03/28/2018 1 *SELF PAY* Sandra iraheta Lane 04/13/2018 1 *SELF PAY* Sandra Sherman 04/16/2019 2 *SELF PAY* Sandra iraheta Lane 09/15/2021 2 *SELF PAY* Sandra iraheta Lane 09/15/2021 1 [employer] - [facility] - CHOICE PLUS (PPO) Rachana Tenorio [id number] Mayte Brown Notes Date Note Type Note Provider Name and Address Organization Details Recorded Time 09/22/2016 text/html 21yo here for UP T. Has history of irregular cycles. Has been working on losing weight with the [employer] and cycles have become more regular in the last few months. LMP 08/24/16 and then prior to that 07/24/16. Was worried when her cycle didn't start yesterday (09/21/16). She is still very involved in the [employer] and has a lot of life goals - does not have time for a . Using condoms, but also considering something additional for contraception. Chantel Garcia MD Attn: [address] [place], [address], [facility] 09/22/2016 15:43:37 04/13/2018 text/html patient here r\t + GC& Chlamydia on exam on . OLINDA Schwarz Attn: Accounting[address] [facility], [place], [address], [facility] 04/13/2018 14:50:03 04/16/2019 text/html patient is a 23 year old female recently seen at [facility] for Bartholin cyst, placed on antibiotics and here for follow up. No vaginal discharge. patient is sexually active ( bisexual) . SAB2. no BCM. Queenie Mellissa, MD Attn: Accounting[address] [facility], [place], [address], [place] [facility] 04/16/2019 12:40:44 09/15/2021 text/html Pt presents for [...] appearance. Morris Mendoza MD Attn: Accounting[address] [facility], [place], [address], [facility] 09/16/2021 10:39:38 OBGyn Episode No OBEpisode recorded.
[2024-10-07 10:55] LABS: Hematocrit 34.4 % (37.0-47.0); Hemoglobin 11.6 g/dL (12.0-15.0); Mean Corpuscular HGB Conc 33.7 g/dl (32-36); Mean Corpuscular Hemoglobin 31.4 pg (26-34); Mean Corpuscular Volume 93.2 fl (80-100); Mean Platelet Volume 10.8 fl (7.4-10.4); Platelet Count Result 239 k/mm3 (150-375); Red Blood Count 3.69 M/mm3 (4.2-5.4); White Blood Count 9.7 K/mm3 (4.5-10.0)
[2024-10-07 11:10] LABS: Glucose 1 Hour PP 50gm Dose 122 mg/dL
== END 2024-10-07 09:39 | disposition home or self-care (01) ==
LOC: ANHLAB 09:39
PROVIDERS: PCP Obstetrics & Gynecology; Visit Provider Obstetrics & Gynecology
DX: Z34.90 Encounter for supervision of normal pregnancy, unspecified, unspecified trimester (principal)
CPT/HCPCS: 36415; 82947; 85027

== ENCOUNTER 2024-10-13 16:11 | Observation (INO) | payer OTHER, SELFPAY ==
--- OUTSIDE RECORDS SUMMARY | 2024-10-13 16:18 | XMS_ITS | Data Portability ---
Author Organization CASEY DARRYLBernarda Roberto Gutierrez Address [address] [place] [address] Care Team Providers Care Bottle Filler Name Role Phone NADIA HAN Primary Care [...] [facility], [address], [address], [place], [address], 2 11:36:42 bacter ial vagino sis score, AVILA+pr obe, vagina l fluid (OBS) 2021 022 [facility], [address] [facility] [address], [address], [place], [address], 2 10:36:39 wet mount, vagina l 2017 018 [employer] In-Office Order, Internal Use Only DO Not Attach Compendium DO Not Attach Compendium, Do Not Delete/merge, [id number] 8 18:53:36 vance wet prep 2017 018 [employer] In-Office Order, Internal Use Only DO Not Attach Compendium DO Not Attach Compendium, Do Not Delete/merge, [id number] 8 18:53:36 pap, IG + CT/NG 2017 018 [facility], [address], [address], [place], [address], 8 17:10:29 RPR (rapid plasma reagin ), serum 2017 018 [facility], [address] [facility] [address], [address], [place], [address], 8 17:11:44 HIV (1+2) Ab screen , serum 2017 018 [id number] [facility], [address] [facility] [address], [address], [place], [address], 8 17:30:42 hepati tis panel (A+B+C ), acute, serum 2017 018 [place] [facility], [address], [address], [place], [address], 8 17:11:42 hsv-2 (herpe s simple x virus type 2) igg Ab, serum 2017 018 [id number] [facility] ([facility]), [address], [place], [address], 8 17:30:43 pregna ncy test, urine 2016 017 In-Office Order, Internal Use Only DO Not Attach Compendium DO Not Attach Compendium, Do Not Delete/merge, [id number] 7 15:43:20 Referral obstet rician and gyneco logist referr al 2021 [facility], [address] [place], [address], 2 14:14:11 Procedures None record ed. Surgeries None record ed. Imaging US, breast , bilate ral, comple te 2021 022 [facility], [facility], [place], [address], 2 12:14:49 MAMMO, diagno stic, bilate ral 2021 022 [facility], [facility], [place], [address], 2 12:14:49 Medication Orders hydroc ortiso ne 2.5 % topica l ointme nt 2021 022 [facility] #[id number], [address], [place], [place], [id number], 2 12:17:38 azithr omycin 500 mg tablet 2017 018 [facility] #[id number], [address], [place], [place], [id number], 2 11:28:27 flucon azole 150 mg tablet 2017 018 [facility] #[id number], [address], [place], [place], [id number], 2 11:28:44 ceftri axone 250 mg soluti on for inject ion 2017 018 cmoorern Not available 2 11:28:33 metron idazol e 500 mg tablet 2017 018 [facility] #[id number], [address], [place], [place], [id number], 2 11:28:55 ceftri axone 250 mg soluti on for inject ion 2017 018 cmoorern Not available 2 11:28:33 flucon azole 150 mg tablet 2017 018 cmoorern Not available 11:28:44 Patient TargetsNo targets recorded. Patient InstructionsNo instructions recorded. 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) [address], [place], [address], 03/29/2018 17:11:42 03/28/20 18 03/29/2018 hepat itis panel (A+B+ C), acute , serum HBsAg screen Negati ve negati ve Not Available [facility] ([facility]) [address] [place], [address], 03/29/2018 17:11:42 03/28/20 18 03/29/2018 hepat itis panel (A+B+ C), acute , serum hep B core Ab, IgM Negati ve negati ve Not Available [facility] ([facility]) [address] [place], [address], 03/29/2018 17:11:42 03/28/20 18 03/29/2018 hepat itis [...] ion test (5507 13). Not Available [facility] ([facility]) [address], [place], [address], 03/29/2018 17:11:42 03/28/20 18 03/29/2018 hsv (1+2) [...] eric to HSV-1 . Not Available [facility] ([facility]) [address] [place], [address], 03/29/2018 17:11:43 03/28/20 18 03/29/2018 hsv (1+2) [...] eric to HSV-2 . Not Available [facility] ([facility]) [address], [place], [address], 03/29/2018 17:11:43 03/28/20 18 03/29/2018 hsv (1+2) [...] ----- ----- ----- ----- Not Available [facility] ([facility]) [address] [place], [address], 03/29/2018 17:11:43 03/28/20 18 03/29/2018 HIV 1+2 AB + HIV 1 p24 Ag, quali tativ e immun oassa y, serum HIV screen 4TH generation wrfx Non Reacti ve non reacti ve Not Available [facility] ([facility]) [address] [place], [address], 03/29/2018 17:11:43 03/28/20 18 03/29/2018 RPR (rapi d plasm a reagi n), serum RPR Non Reacti ve non reacti ve Not Available [facility] ([facility]) [address], [place], [address], 03/29/2018 17:11:43 03/29/20 18 04/02/2018 pap, IG + CT/NG diagnosis: Commen t NEGASHLEY LUCA FOR INTRA EPITH ELIAL LESIO N AND KARISHMA ZAMARRIPA . CELLU LAR BATISTA ES ASSOC IATED WITH HERPE S SIMPL EX ARE PRESE NT. THIS SPECI MEN WAS RESCR EENED PART OF OUR QUALI TY CONTR OL PROGR AM. Not Available [facility] ([facility]) [address] [place], [address], 04/02/2018 17:10:29 03/29/20 18 04/02/2018 pap, IG + CT/NG specimen adequacy: Commen t Satis facto ry for evalu ation . Endoc ervic al and/o r squam ous metap lasti c cells (endo cervi nadya compo nent) are prese nt. Not Available [facility] ([facility]) [address] [place], [address], 04/02/2018 17:10:29 03/29/20 18 04/02/2018 pap, IG + CT/NG clinician provided ICD10: Hernando t Z01.4 11 Not Available [facility] ([facility]) [address], [place], [address], 04/02/2018 17:10:29 03/29/20 18 04/02/2018 pap, IG + CT/NG performed by: Hernando Lema , Cytot echno logis t (ASCP ) Not Available [facility] ([facility]) [address] [place], [address], 04/02/2018 17:10:29 03/29/20 18 04/02/2018 pap, IG + CT/NG QC reviewed by: Hernando jhaveri, Cytot echno logis t (ASCP ) Not Available [facility] ([facility]) [address] [place], [address], 04/02/2018 17:10:29 03/29/20 18 04/02/2018 pap, IG + CT/NG . . Not Available [facility] ([facility]) [address], [place], [address], 04/02/2018 17:10:29 03/29/20 18 04/02/2018 pap, IG [...] ts do occur . Not Available [facility] ([facility]) [address], [place], [address], 04/02/2018 17:10:29 03/29/20 18 04/02/2018 pap, IG + CT/NG test methodology: Hernando ricks This liqui d based ThinP rep(R ) pap test was scree paulie with the use of an image guide felix callejas. Not Available [facility] ([facility]) [address], [place], [address], 04/02/2018 17:10:29 03/29/20 18 04/02/2018 pap, IG + CT/NG chlamydia, nuc. acid amp Positi ve negati ve abnormal Not Available [facility] ([facility]) [address], [place], [address], 04/02/2018 17:10:29 03/29/20 18 04/02/2018 pap, IG + CT/NG gonococcus, nuc. acid amp Positi ve negati ve abnormal Not Available [facility] ([facility]) [address], [place], [address], 04/02/2018 17:10:29 03/29/20 18 03/29/2018 vance wet prep Yeast positi ve Not Available In-Office Order Internal Use Only DO Not Attach Compendium DO Not Attach Compendium, Do Not Delete/merge, [id number] 03/29/2018 18:51:25 03/29/20 18 03/29/2018 wet mount , vagin al Clue Cells positi ve Not Available In-Office Order Internal Use Only DO Not Attach Compendium DO Not Attach Compendium, Do Not Delete/merge, [id number] 03/29/2018 18:51:24 03/29/20 18 03/29/2018 wet mount , vagin al Trichomonas positi ve Not Available In-Office Order Internal Use Only DO Not Attach Compendium DO Not Attach Compendium, Do Not Delete/merge, [id number] 03/29/2018 18:51:24 09/15/19 22 09/18/2021 IGP, APTIM A HPV, RFX 16/18 ,45 HPV aptima Negati ve negati ve This nucle ic acid ampli ficat ion test detec ts fourt een high- risk HPV types (16,1 8,31, 33,35 ,39,4 5,51, 52,56 ,58,5 9,66, 68) witho ut diffe renti ation . Not Available [facility] ([facility]) [address], [place], [address], 09/20/2021 11:36:42 09/15/19 22 09/20/2021 IGP, APTIM A HPV, RFX 16/18 ,45 diagnosis: Hernando SEGOVIA FOR INTRA EPITH ELIAL YULIA N OR KARISHMA MARILOU . Not Available [facility] ([facility]) [address] [place], [address], 09/20/2021 11:36:42 09/15/19 22 09/20/2021 IGP, APTIM A HPV, RFX 16/18 ,45 specimen adequacy: Hernando t Satis facto ry for evalu ation . Endoc ervic al and/o r squam ous metap lasti c cells (endo cervi andya compo nent) are prese nt. Not Available [facility] ([facility]) [address] [place], [address], 09/20/2021 11:36:42 09/15/19 22 09/20/2021 IGP, APTIM A HPV, RFX 16/18 ,45 clinician provided ICD10: Hernando ricks Z12.4 Not Available [facility] ([facility]) [address] [place], [address], 09/20/2021 11:36:42 09/15/19 22 09/20/2021 IGP, APTIM A HPV, RFX 16/18 ,45 performed by: Jennie Alejandra (ASCP ) Not Available [facility] ([facility]) [address] [place], [address], 09/20/2021 11:36:42 09/15/19 22 09/20/2021 IGP, APTIM A HPV, RFX 16/18 ,45 . . Not Available [facility] ([facility]) [address] [place], [address], 09/20/2021 11:36:42 09/15/19 22 09/20/2021 IGP, APTIM [...] ts do occur . Not Available [facility] ([facility]) [address] [place], [address], 09/20/2021 11:36:42 09/15/19 22 09/20/2021 IGP, APTIM A HPV, RFX 16/18 ,45 test methodology: Hernando t This liqui d based ThinP rep(R ) pap test was scree paulie with the use of an image guide felix callejas. Not Available [facility] ([facility]) [address] [place], [address], 09/20/2021 11:36:42 09/15/19 22 09/20/2021 NUSWA B VG+, HSV atopobium vaginae High - 2 score abnormal Not Available [facility] ([facility]) [address] [place], [address], 09/21/2021 10:36:39 09/15/19 22 09/20/2021 NUSWA B VG+, HSV bvab 2 High - 2 score abnormal Not Available [facility] ([facility]) [address] [place], [address], 09/21/2021 10:36:39 09/15/19 22 09/20/2021 NUSWA B [...] Drug Admin istra tion. Not Available [facility] ([facility]) [address] [place], [address], 09/21/2021 10:36:39 09/15/19 22 09/20/2021 NUSWA B VG+, HSV erlin albicans, AVILA Negati ve negati ve Not Available [facility] ([facility]) [address] [place], [address], 09/21/2021 10:36:39 09/15/19 22 09/20/2021 NUSWA B VG+, HSV erlin glabrata, AVILA Negati ve negati ve Not Available [facility] ([facility]) [address] [place], [address], 09/21/2021 10:36:39 09/15/19 22 09/20/2021 NUSWA B VG+, HSV trich vag by AVILA Positi ve negati ve abnormal Not Available [facility] ([facility]) [address] [place], [address], 09/21/2021 10:36:39 09/15/19 22 09/20/2021 NUSWA B VG+, HSV chlamydia trachomatis, AVILA Positi ve negati ve abnormal Not Available [facility] ([facility]) [address] [place], [address], 09/21/2021 10:36:39 09/15/19 22 09/20/2021 NUSWA B VG+, HSV neisseria gonorrhoeae, AVILA Negati ve negati ve Not Available [facility] ([facility]) [address], [place], [address], 09/21/2021 10:36:39 09/15/19 22 09/21/2021 NUSWA B VG+, HSV hsv 1 AVILA Negati ve negati ve Not Available [facility] ([facility]) [address], [place], [address], 09/21/2021 10:36:39 09/15/19 22 09/21/2021 NUSWA B VG+, HSV hsv 2 AVILA Negati ve negati ve Not Available [facility] ([facility]) [address], [place], [address], 09/21/2021 10:36:39 Result Notes None recorded. Problems Name Problem SNOMED Code Status Onset Date Resolution Date Notes Provider Name and Address Organization Details Recorded Time Overweight 105303204 Active Gil Zendejas MD Attn: Harinder allen,[address] [place], [address], [place] [facility] 6 17:43:37 Fracture of base of fifth metatarsal 170424400 Completed 09/22/2016 Chantel Garcia MD Attn: Harinder allen,[address] [place], [address], [place] [facility] 7 15:12:06 Sprain of ankle 39662513 Completed 09/22/2016 Chantel Garcia MD Attn: Harinder allen,[address] [place], [address], [place] [facility] 7 15:12:05 Irregular periods 49192663 Active Xiomy Devi [place] null, [place] [facility] 6 17:14:33 Depressed mood 855288450 Active Xiomy Devi [place], [place] [facility] 6 17:14:33 Problem Notes None recorded. Medical Equipment None Reported. Allergies Allergen ID Allergen Name Allergen Category Reaction Reaction Severity Criticality Documentation Date Start Date Code Code System Note Provider Name and Address Organization Details Recorded Time 89019 Substance with sulfonami de structure and antibacte rial mechanism of action (substanc e) medicatio n itching moderate Not available 01/01/2015 06514 8003 SNOMED Not Available Not Available Not [...] Updated DateTime 03/28/2018 175.26 cm 27.9 kg/m2 41948.96 g 120 mm[Hg] 70 mm[Hg] Mayra Young [place] [facility] 8 14:47:29 Date Recorded Body height Body mass index (BMI) Body weight Systolic blood pressure Diastolic blood pressure Provider Name and Address Organization Details Last Updated DateTime 04/13/2018 175.26 cm 27.4 kg/m2 63934.03 g 110 mm[Hg] 60 mm[Hg] Benita Lamas [place] [facility] 8 12:44:03 Date Recorded Body height Body mass index (BMI) Body weight Oxygen saturation Oxygen saturation in Arterial blood by Pulse oximetry Heart rate Systolic blood pressure Diastolic blood pressure Provider Name and Address Organization Details Last Updated DateTime 9 175.26 cm 31.3 kg/m2 94436.9 8 g 98 % 98 % 83 /min 122 mm[Hg] 80 mm[Hg] Catia Maritnez [facility] 9 11:57:40 Date Recorded Body weight Pain severity - 0-10 verbal numeric rating [Score] - Reported Oxygen saturation Oxygen saturation in Arterial blood by Pulse oximetry Heart rate Body temperature Systolic blood pressure Diastolic blood pressure Provider Name and Address Organization Details Last Updated DateTime 2 60555.2 1 g 0 99 % 99 % 114 /min 98.9 [degF] 110 mm[Hg] 62 mm[Hg] Ines Mccall RN [facility] 2 11:37:51 Date Recorded Heart rate Provider Name an d Address Organization Details Last Updated DateTime 09/15/2021 90 /min AMARILYS GONSALEZ Attn: Accounting,[address] [place], [address], [facility] 09/15/2021 13:53:23 Date Recorded Body height Body weight Body mass index (BMI) Systolic blood pressure Diastolic blood pressure Provider Name and Address Organization Details Last Updated DateTime 09/22/2016 170.815 cm 99497.98 g 30.6 kg/m2 108 mm[Hg] 66 mm[Hg] Mayra Young MA [facility] 7 15:03:44 Social History Question Answer Notes LastModified by Organizat ion Details LastModified Time Tobacco Smoking Status Current Every Day Smoker Mayra Young MA null, [facility] 03/28/2018 14:48:33 Do You Have An Advance Directive? No Information not available 09/15/2021 What Is Your Level Of Alcohol Consumption? None Information not available 10/13/2014 Animal Exposure? No [email or web address] Inform ation not available 10/13/2014 Are You Blind Or Do You Have Difficulty Seeing? No Information not available 09/15/2021 Are You Or Have You Been Involved With Bullying? No [email or web address] Information not available 10/13/2014 What Is Your Level Of Caffeine Consumption? Moderate Information not available 10/13/2014 How Much Tobacco Do You Chew? None [email or web address] Information not available 10/13/2014 What Type Of Master Welder Do You Use? None [email or web address] Information not available 02/09/2016 In The 14 [...] Type Of Diet Are You Following? REGULAR [email or web address] Information not available 10/13/2014 Have There Been Any Changes To Your Family Or Social Situation? No [email or web address] Information no t available 02/09/2016 What Is The Fluoride Status Of Your Home? Fluoridated [email or web address] Information not available 10/13/2014 Are There Any Guns Present In Your Home? No [email or web address] Information not available 10/13/2014 What Is Your Home Situation? Mother Rachana [email or web address] Information not available 10/13/2014 Car Seat Type Or Seat Belt? Seat Belt [email or web address] Information not available 02/09/2016 Parent Involvement? Both Parents Involved Information not available 10/13/2014 Riding In Car Front Seat? Yes [email or web address] Information not available 02/09/2016 Mosquito Repellent Used Routinely Yes [email or web address] Information not available 10/13/2014 What Was The Date Of Your Most Recent Tobacco Screening? 03/28/2018 Information not available 02/14/2019 What Is Your Current Pack Years? [email or web address] Information not available 09/15/2021 Pool Exposure Yes [email or web address] Informati on not available 10/13/2014 Do You Use Your Seat Belt Or Car Seat Routinely? Yes [email or web address] Information not available 10/13/2014 Are You Sexually Active? No [email or web address] Information not available 10/13/2014 Do You Have Any Siblings? 3 [email or web address] Information not available 10/13/2014 Do You Have Smoke And Carbon Monoxide Detectors In Your Home? Yes [email or web address] Information not available 10/13/2014 At What Age Did You Start Smoking Tobacco? 18 Information not available 09/15/2021 Are You Passively Exposed To Smoke? No [email or web address] Information no t available 10/13/2014 How Much Tobacco Do You Smoke? 0.5 PPD Information not available 09/15/2021 What Types Of Sporting Activities Do You Participate In? Basketball & Track [email or web address] Information not available 10/13/2014 Do You Use Any Illicit Or Recreational Drugs? No Information not available 09/15/2021 Do You Use Sunscreen Routinely? No [email or web address] Information not available 10/13/2014 Has Tobacco Cessation Counseling Been Provided? Yes Information not available 09/15/2021 How Many Years Have You Smoked Tobacco? 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 No Information not available 09/15/2021 Sex: Unknown Functional Status Question Answer Note LastModified by Organization D etails LastModified Time Are you able to care for yourself? Yes Information not available 09/15/2021 What is your exercise level? Moderate [email or web address] Information not available 10/13/2014 Mental Status None recorded. Family History Relationship Description Onset Age of this Age Resolved Age Notes LastModified by Organization Details LastModified Time Father No current problems or disability [email or web address] Not available 08/2016 15:00:57 Mother No current problems or disability [email or web address] Not available 08/2016 15:00:57 Mother Hypertensive disorder [email or web address] Not available 09/22 15:04:16 Mother Mitral valve disorder [email or web address] Not available 2021 11:31:14 Medical History Condition Response Blood Diseases N Depression N Developmental or Behavioral Disorders N Premature N Headaches/Migraines Y Anxiety Disorder N Muscle, Joint, or Bone Problems N Vision or Eye Problems N Head Injury/Concussion N Cancer N ADHD N Bladder or Kidney Problems N Headaches N Ear or Hearing Problems N Thyroid Problems N Skin Problems Y Anemia N Constipation N Diabetes N Bedwetting N Heart Problems/Murmur N Seizures/Epilepsy N Asthma N Allergies Y Chicken Pox N Autism Spectrum Disorder (ASD) [...] [place], [place] [facility] 10/03/2014 13:01:09 [id number] 7 david Savage [place], [place] [facility] 10/03/2014 13:01:28 [id number] 7 david Savage [place] null, [place] - [...] SNOMED-CT Code Diagnosis ICD10 Code Diagnosis Note [id number] Cynthia Savage MA [facility] ([facility]) [address] [place] [address] 10/13/2014 15:43:13 10/17/2014 03:50:29 Well child 236743862 Overweight 582320411 [id number] Naomi Lozada [facility] [address] [place] [address] 01/01/2015 10:51:45 01/01/2015 14:32:00 Fracture of base of fifth metatarsal 152074222 Sprain of ankle 13391585 [id number] [facility] [address] [place] [address] 03/20/2015 16:00:39 03/20/2015 17:53:24 Well child 170876963 [id number] Chantel Garcia MD [facility] ([facility]) [address] [place] [address] 11/02/2015 14:35:59 11/02/2015 15:37:14 Irregular periods 98981913 N92.6 Depressed mood 006231174 F32.9 [id number] Gil Zendejas MD [facility] ([facility]) [address] [place] [address] 02/09/2016 16:51:05 02/09/2016 17:54:47 Well child 659478789 Z00.129 Overweight 428557903 E66 .3 [id number] Chantel Garcia MD [facility] ([facility]PER[facility]) [address] [place] [address] 09/22/2016 14:45:50 09/22/2016 17:14:10 Contraception care management 017453153 Z30.09 Missed period 94411285 N 92.5 [id number] [facility] [address] [place] [address] 03/28/2018 13:59:52 04/13/2018 15:32:47 Gynecologic examination 88114443 Z01.411 Venereal d isease screening 670694289 Z11.3 High risk sexual behavior 751991283 Z72.51 X 3 sex partners in last 12 mo. discussed safe sex condom use inconsiste nt use currently. Acute cervicitis 8190399 0 N72 Trichomona l vulvovaginitis 31321525 A59.01 [id number] EMIGDIO Schwarz[facility] ([facility]) [address] [place] [address] 04/13/2018 12:07:41 04/13/2018 16:33:16 Exposure to sexually transmissible disorder 625175716 Z20.2 with current sex partner of X 12 mo. no longer together offered & refused condoms today r\y many left from last visit. Gonorrhea 85417048 A54.9 Chlamydial infection 105 062575 A74.9 [id number] Queenie Malloy MD [address] [address] 04/16/2019 11:41:08 04/17/2019 08:53:17 Cyst of right Bartholin's gland duct 0838844740 7770822 N75.0 improving continue antibiotic s, and warm sitz bath. [id number] Morris holman MD [facility] [address] [place] [address] 09/15/2021 11:10:36 09/16/2021 09:01:20 Lesion of skin of breast 8188219036 96974 L98.8 x3 mono FH of breast cancerno relief with OTC creamsPEx- upper medial quadrant of L breast with 1.5 in x 0.5 inch area of xerosis with yellow, crusted punctated lesions w/o loculation s, erythema, or drainageor dered US and mammogramt rial hydrocorti sonef/u if no improvemen t, can trial mod potency steroid cream Screening for malignant neoplasm of cervix 978346167 Z12.4 no h/o abnormalsP Ex- cervix friable, thin white discharge surroundin g cervix, CMTsample sent for papchecked for BV, erlin, gono/chla/ trich, HSV Female infertility 73786 08 N97.9 x3 yrsmiscarr iage 2018unprot ected sexual intercours e with partner for 3 yrshe has 4 children from prior relationsh ipsno controltra cking 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 Has history of irregular cycles. Has been working on losing weight with the [employer] and cycles have become more regular in the last few months. LMP 08/24/16 and then prior to that 07/24/16. Was worried when her cycle didn't start yesterday (09/21/16). She is still very involved in the [facility] and has a lot of life goals - does not have time for a . Using condoms, but also considering something additional for contraception. Chantel Garcia MD Attn: Accounting,[address] [place], [address], [facility] 09/22/2016 15:43:37 04/13/2018 text/html patient here r\t + GC& Chlamydia on exam on . OLINDA Schwarz Attn: Accounting,[address] [facility], [place], [address], [facility] 04/13/2018 14:50:03 04/16/2019 text/html patient is a 23 year old female recently seen at [facility] for Bartholin cyst, placed on antibiotics and here for follow up. No vaginal discharge. patient is sexually active ( bisexual) . SAB2. no BCM. Queenie Mellissa, MD Attn: Accounting,[address] [facility], [place], [address], [place] [facility] 04/16/2019 12:40:44 09/15/2021 text/html Pt presents for [...] Morris Mendoza MD Attn: Accounting,[address] [facility], [place], [address], [facility] 09/16/2021 10:39:38 OBGyn Episode No OBEpisode recorded.
--- OUTSIDE RECORDS SUMMARY | 2024-10-13 16:18 | XMS_ITS | Clinical Summary ---
Author Organization [facility] Address [address] [place] [address] Phone Care Team Providers Care Salesforce Specialist Name Role Phone Unavailable Primary Care Provider Unavailabl e Allergies Active Allergy Reactions Criticality Noted Date Comments Sulfa (Sulfonamide Antibiotics) Other (See Comments) 08/01/2024 Rash and shortness of breath Medications methIMAzole (TAPAZOLE) 10 mg tablet Take 10 mg by mouth 2 times daily. Active vits15/iron/foli c/dss ( VIT 41-NCYG-RLSJG-DS S ORAL) Take by mouth. Active Active Problems Problem Noted Date Diagnosed Date Hyperthyroidism affecting in third tri mester 10/09/2024 Estimated Date of Delivery Comme nts Yes 12/31/2024 Encounters Date Type Department Care Team Description 10/09/2024 3:00 PM CDT Video Visit [facility] Maternal and Medicine - [facility] [address] [facility] [address] [place] [address] Gracie Carney MD Hyperthyroidism affecting in third trimester (Primary Dx); 28 weeks gestation of 09/28/2024 External Device Data STL ABSTRACTION Provider, Abstract 09/27/2024 External Device Data STL ABSTRACTION Provider, Abstract 09/25/2024 External Device Data STL ABSTRACTION Provider, Abstract 09/19/2024 Telephone [facility] Maternal Medicine [address] [facility] [address] [place] [address] Shanique Cook, MOISES Follow Up 09/12/2024 3:00 PM PHYSICIAN INTERVENTIONAL CARDIOLOGIST Video Visit [facility] Maternal Medicine [address] [place] [address] Yun Cox MD Hyperthyroidism (Primary Dx) 09/12/2024 12:45 PM PHYSICIAN INTERVENTIONAL CARDIOLOGIST - 09/12/2024 11:59 PM PHYSICIAN INTERVENTIONAL CARDIOLOGIST Hospital Encounter [facility] Maternal and Health [facility] [address] [place] [address] Heath Rajput MD Discharge Disposition: Home or Self Care 09/12/2024 Travel 09/11/2024 External Device Data STL ABSTRACTION Provider, Abstract 09/10/2024 Chart Note [facility] Maternal Medicine [address] [place] [address] Shanique Cook RN 08/20/2024 External Device Data STL ABSTRACTION Provider, Abstract 08/14/2024 External Device Data STL ABSTRACTION Provider, Abstract 08/14/2024 External Device Data STL ABSTRACTION Provider, Abstract 08/13/2024 External Device Data STL ABSTRACTION Provider, Abstract 08/08/2024 Telephone [facility] Maternal and Medicine - [facility] B [address] [facility] [address] [place] [address] Roxann Hobbs MD Needs Appointment 08/02/2024 Chart Note [facility] Maternal Medicine [address] [place] [address] Shanique Cook RN 08/02/2024 Chart Note [facility] Maternal Medicine [address] [place] [address] Shanique Cook RN 08/01/2024 Abstract [facility] Maternal Medicine [address] [place] [address] Shanique Cook RN from Last 3 Months [...] on file Legal Sex Female 10:50 AM PHYSICIAN INTERVENTIONAL CARDIOLOGIST Gender Identity Not on file Sexual Orientation Choose not to disclose 2024 3:44 PM PHYSICIAN INTERVENTIONAL CARDIOLOGIST Last Filed Vital Signs Vital Sign Reading Time Taken Comments Blood Pressure - - Pulse - - Temperature - - Respiratory Rate - - Oxygen Saturation - - Inhaled Oxygen Concentration - - Weight 88.9 kg (196 lb) 09/12/2024 2:55 PM PHYSICIAN INTERVENTIONAL CARDIOLOGIST Height 175.3 cm (5' 9 ) 09/12/2024 2:55 PM PHYSICIAN INTERVENTIONAL CARDIOLOGIST Body Mass Index 28.94 09/12/2024 2:55 PM PHYSICIAN INTERVENTIONAL CARDIOLOGIST Plan of Treatment Upcoming Encounters Date Type Department Care Team (Late st Contact Info) Description 11/06/2024 10:00 AM CDT Video Visit [facility] Maternal Medicine [address] [facility] [address] [facility] [address] [place] [address] Padmini Michael, CLEANING PORTER [address] [place] [address] Health Maintenance Due Date Last Done Comments CERVICAL CANCER SCREENING 2017 PAP SMEAR 2017 PAP SMEAR 2017 DTAP/TDAP/TD VACCINES (7 - T d or Tdap) 03/21/2018 03/21/2008, 11/20/2000, 10/16/1997, Additional history exists INFLUENZA VACCINE (#1) 2024 3, 06/28/2010, 05/15/2009 HEPATITIS B VACCINES Completed 04/16/1997, 1996, 1996 HPV VACCINES Completed 11/21/2012, 01/2011, 06/28/2010 RSV VACCINE (60+ or ) (No Doses Required) Completed Procedures Procedure Name Priority Date/Time Associated Diagnosis Comments COMPREHENSIVE METABOLIC PANEL Routine 10/11/2024 3:09 PM CDT Hyperthyroidism TSH Routine 10/11/2024 3:09 PM CDT Hyperthyroidism T3 FREE Routine 10/11/2024 3:09 PM CDT Hyperthyroidism T4 FREE Routine 10/11/2024 3:09 PM CDT Hyperthyroidism US OB 14+ WKS SINGLE GEST Routine 09/12/2024 1:48 PM PHYSICIAN INTERVENTIONAL CARDIOLOGIST Thyroid disorder screening for malformation using ultrasonics from Last 3 Months Results * (ABNORMAL) T3 FREE (10/11/2024 3:09 PM CDT) T3 FREE 2.2(L) 2.3 - 4.2 pg/mL [employer] Comment: FASTING:NO FASTING: NO Test Performed at: [facility] [address] [place] [address] Nick Rivas MD Blood 10/11/2024 3:09 PM CDT 10/11/2024 3:09 PM CDT us Yun Cox MD CHEMISTRY ORDERABLES Final Result [facility] [phone] [facility] [address] [place] [address] * (ABNORMAL) TSH (10/11/2024 3:09 PM CDT) TSH 0.02(L) mIU/L [employer] Comment: Reference Range > or = 20 Years 0.40-4.50 Ranges First trimester 0.26-2.66 Second trimester 0.55-2.73 Third trimester 0.43-2.91 FASTING:NO FASTING: NO Test Performed at: [place] [address] [place] [address] [facility] Vo Blood 10/11/2024 3:09 PM CDT 10/11/2024 3:09 PM CDT Yun Cox MD CHEMISTRY ORDERABLES Final Result [facility] [phone] [place] [address] [place] [address] * T4 FREE (10/11/2024 3:09 PM CDT) T4 FREE 0.8 0.8 - 1.8 ng/dL [facility] Comment: Test Performed at: [place] [address] [place] [address] [facility] Vo Blood 10/11/2024 3:09 PM CDT 10/11/2024 3:09 PM CDT Yun Cox MD CHEMISTRY ORDERABLES Final Result Performing Organization Address City/[facility]/ZIP Code Phone Number [facility] [phone] [place] [address] [place] [address] * (ABNORMAL) COMPREHENSIVE METABOLIC PANEL (10/11/2024 3:09 PM CDT) GLUCOSE 72 65 - 139 mg/dL [facility] Comment: Non-fasting reference interval BUN 12 7 - 25 mg/dL [facility] CREATININE 0.55 0.50 - 0.96 mg/dL [facility] GFR 128 > OR = 60 mL/min/1. 73m2 [employer] BUN/CREAT RATIO SEE NOTE: 6 - 22 (calc) [facility] Comment: Not Reported: BUN and Creatinine are within reference range. SODIUM 135 135 - 146 mmol/L [facility] POTASSIUM 3.5 3.5 - 5.3 mmol/L [facility] CHLORIDE 103 98 - 110 mmol/L [facility] CO2 25 20 - 32 mmol/L [employer] [facility] CALCIUM 8.7 8.6 - 10.2 mg/dL [facility] TOTAL PROTEIN 6.7 6.1 - 8.1 g/dL [employer] ALBUMIN 3.6 3.6 - 5.1 g/dL [employer] [facility] GLOBULIN 3.1 1.9 - 3.7 g/dL (calc) [employer] [facility] ALBUMIN/GLOBULIN RATIO 1.2 1.0 - 2.5 (calc) [employer] [facility] BILIRUBIN TOTAL 0.3 0.2 - 1.2 mg/dL [employer] [facility] ALKALINE PHOSPHATASE 51 31 - 125 U/L [facility] AST 9(L) 10 - 30 U/L [employer] [facility] ALT 8 6 - 29 U/L [employer] [facility] Comment: FASTING:NO FASTING: NO Test Performed at: [place] [address] [place] [address] [facility] Blood 10/11/2024 3:09 PM CDT 10/11/2024 3:09 PM CDT us Yun Cox MD CHEMISTRY ORDERABLES Final Result [facility] [phone] [facility] [place] [address] [place] [address] * US OB 14+ WKS SINGLE GEST (09/12/2024 1:48 PM PHYSICIAN INTERVENTIONAL CARDIOLOGIST) Anatomical Region Laterality Modality Pelvis Ultrasound 09/12/2024 12:5 2 PM PHYSICIAN INTERVENTIONAL CARDIOLOGIST Narrative 09/12/2024 1:49 PM PHYSICIAN INTERVENTIONAL CARDIOLOGIST STL BASIC ----- Pat. Name: MAYTE SHERMAN Study Date: 09/12/2024 12:52pm Pat. NO: [id number] Referring MD: HEATH RAJPUT MD Site: [place] [employer] Technician: Elly Lopez RDMS : 1995 Age: 29 [...] for malformations Z3A.24: Weeks of gestation Procedures 90480: Ultrasound, uterus, real time with image documentation, [...] Cerebellum tr 28.4 mm 26w 2d 91% Samuels AC 210.0 mm 25w 4d 79% Hadlock Femur 48.7 mm 26w 3d 92% Hadlock Humerus 44.2 mm 26w 2d 93% Naresh HC / AC 1.03 5% Nicolaides Weight Calculation: EFW 825 g 25w 2d 91% Hadlock EFW (lb,oz) 1 lb 13 oz EFW by Hadlock ([id number]) Head / Face / Neck Biometry: Firebrick Layer 4.5 mm CM 4.5 mm 11% Nicolaides [...] view. RVOT view. LVOT view. 3-vessel view. 0-hmgakj-udpgjwm view. Situs. High short axis view. Cardiac [...] and date of were confirmed by the plumbing foreman prior to the exam IMPRESSION ----- 1. [...] Pat. Name:Serena SHERMAN Date:09/12/2024 12:52pm Pat. NO: [id number] MD:HEATH RAJPUT MD [facility]Elly Lopez RDMS :1995Age:29 ----- INDICATION [...] screening formalformations Z3A.24: Weeks of gestation Procedures [id number]: Ultrasound, uterus, real time withimage documentation, and [...] US Study, Outside US GA by prior [id number] w + 2 d TAMMY by prior [...] 26w 2d93% Naresh HC / AC 1.03 5%Benita Weight Calculation: EFW 825 g 25w 2d 91%Hadlock EFW (lb,oz) 1 lb 13 oz EFW by Hadlock ([id number]) Head / Face / Neck Biometry: Firebrick Layer 4.5 mm CM 4.5 mm 11%Nicolaides Inner [...] 4-chamber view. RVOT view. LVOT view. 3-vesselview. 3-alogca-pwlgowt view. Situs. High short axis view. Cardiac [...] and date of were confirmed by the plumbing foreman priorto the exam IMPRESSION ----- 1. Single [...] the care of this patient. us Heath Rajput MD ORDERABLES Final Result from Last [address] [place] [address] [id number] PLAN MEDICAID
[2024-10-13 16:28] VITALS: BMI 29.9
[2024-10-13 16:46] VITALS: BP 127/79; PULSE 72
[2024-10-13 17:01] VITALS: BP 121/70; PULSE 121
[2024-10-13 17:05] LABS: Add Urine Microscopic? YES; Appearance Urine Turbid (Clear); Bacteria Urine 4+ /hpf; Bilirubin Urine Negative (Negative); Blood Urine Negative (Negative); Color Urine Yellow (Yellow); Glucose Urine UA Negative (Negative); Ketones Urine 1+ mg/dL (Negative); Leukocyte Esterase Ur 3+ LEU/UL (Negative); Nitrate Urine Negative (Negative); Non Pathogenic Casts 0-2; Protein Urine 1+ mg/dL (Negative); RBC Urine 0-2 /hpf (0-2); Squamous Epithelial Cell Urine Many /hpf (Few); WBC Urine >100 /hpf (0-3); pH Urine 6.5 (5.0-9.0)
[2024-10-13 17:15] VITALS: TEMP 36.6
--- NOTE | 2024-10-31 10:50 | P.PNOB_ITS ---
OB - Triage/Final Diagnosis Visit Information Comments/Additional reasons for admission: I have assessed the risk for this patient, Mayte Sherman, and determined that she would benefit from observation care. Evaluation Laboratory results: Laboratory Tests 10/13/24 16:27 Urine Color Yellow Urine Appearance Turbid H Urine pH 6.5 Ur Specific [place] 1.030 Urine Protein 1+ H Urine Glucose (UA) Negative Urine Ketones 1+ H Ur Blood (Man) Negative Urine Nitrate Negative Urine Bilirubin Negative Urine Urobilinogen 1.0 Leukocyte Esterase Rfl 3+ H Urine RBC 0-2 Urine WBC >100 H Ur Squamous Epith Cells Many H Urine Bacteria 4+ H Urine Casts 0-2 Final Diagnosis (1) Cramping complicating , antepartum: Code(s): O26.899 - Other specified related conditions, unspecified trimester; R10.9 - Unspecified abdominal pain Status: Acute
== END 2024-10-13 17:30 | disposition home or self-care (01) ==
PROVIDERS: Admitting Provider Obstetrics & Gynecology; PCP Obstetrics & Gynecology; Visit Provider Obstetrics & Gynecology
DX: O26.893 Other specified pregnancy related conditions, third trimester (principal); R10.9 Unspecified abdominal pain; Z3A.28 28 weeks gestation of pregnancy
CPT/HCPCS: 81001; G0378; G0379

== ENCOUNTER 2024-12-18 16:19 | Outpatient (RCR) | payer OTHER, SELFPAY ==
[2024-11-08 14:08] VITALS: BP 110/55; PULSE 64
[2024-11-11 13:13] VITALS: BP 118/66; PULSE 87
[2024-11-22 16:07] VITALS: BP 141/84; PULSE 89
[2024-11-25 17:25] VITALS: BP 129/76; PULSE 87
[2024-11-29 16:24] VITALS: BP 110/65; PULSE 81
[2024-12-03 12:27] VITALS: BP 129/67; PULSE 79
[2024-12-06 15:58] VITALS: BP 135/71; PULSE 95
--- NOTE | 2024-12-06 16:36 | PC.NURSE ---
Called Dr. Waller with pt BPs. November D/C home.
[2024-12-10 15:18] VITALS: BP 127/82; PULSE 75
[2024-12-17 15:50] VITALS: BP 125/72; PULSE 78
--- NOTE | 2024-12-17 16:40 | PC.NURSE ---
Called Dr. Waller with ultrasound report. November D/C to return in 24hrs for repeat NST and BPP.
--- NOTE | 2024-12-17 16:45 | PC.NURSE ---
Ultrasound called for pt to return to ultrasound for additional images.
--- NOTE | ~2024-12-18 | US_ITS ---
LIMITED OBSTETRIC ULTRASOUND/BIOPHYSICAL PROFILE Ordering provider: Heath Waller MD History: . PIH . Comparison: None. FINDINGS: PRESENTATION: Vertex. Longitudinal lie. PLACENTAL LOCATION: Posterior fundal. No previa. HEART RATE: 144 bpm (normal is between 110 to 160 bpm). AMNIOTIC FLUID INDEX: Largest vertical pocket is 4.5 cm. OTHER: Maternal ovaries not visualized. SCORE: breathing movements: 2 movements: 2 tone: 2 Amniotic fluid volume: 2 Total: 8 IMPRESSION: Normal biophysical profile. Reviewed, dictated and finalized at location A. IMPRESSION: Normal biophysical profile.
--- NOTE | ~2024-12-18 | US_ITS ---
EXAMINATION: US OB BPP wo non-stress DATE: 11/22/2024 16:30 CDT INDICATION: Thyroid dysfunction TECHNIQUE: Real-time transabdominal obstetric ultrasound. FINDINGS: There is a single intrauterine gestation in vertex presentation. The placenta is within the posterio r fundus without placenta previa. cardiac activity and movement is noted with a heart rate of 153 beats per minute. Biophysical profile: breathin of 2 movement: 2 of 2 tone: 2 of 2 Amniotic fluid pocket: 2 of 2 Total score: 8 of 8 Deepest vertical pocket of amniotic fluid measures 4.8 cm IMPRESSION: 1. Single intrauterine gestation in vertex presentation. 2: Total biophysical profile score of 8 out of 8. Reviewed, dictated and finalized at location A.
--- NOTE | ~2024-12-18 | US_ITS ---
EXAMINATION: US OB limited w BPP DATE: 11/29/2024 16:00 CDT INDICATION: Hypothyroidism TECHNIQUE: Real-time transabdominal obstetric ultrasound. FINDINGS: 2 para 0 There is a single intrauterine gestation in vertex presentation. The placenta is posterior without placenta previa. cardiac activity and movement is noted with a heart rate of 144 beats per minute. Biophysical profile: breathin of 2 movement: 2 of 2 tone: 2 of 2 Amniotic fluid pocket: 2 of 2 Total score: 8 of 8 Amniotic fluid index measures 16.5 cm, within normal limits. IMPRESSION: 1. Single intrauterine gestation in vertex presentation. 2: Total biophysical profile score of 8 out of 8. Amniotic fluid index is within normal limits. Reviewed, dictated and finalized at location A.
--- NOTE | ~2024-12-18 | US_ITS ---
EXAMINATION: US OB BPP wo non-stress DATE: 12/17/2024 16:40 CDT INDICATION: surveillance TECHNIQUE: Real-time transabdominal obstetric ultrasound. FINDINGS: 2 There is a single intrauterine gestation in vertex presentation. The placenta is posterior without p lacenta previa. cardiac activity and movement is noted with a heart rate of 149 beats per minute. Biophysical profile: breathin of 2 movement: 2 of 2 tone: 2 of 2 Amniotic fluid pocket: 2 of 2 Total score: 6 of 8 Amniotic fluid index measures 9.5 cm, which is within normal limits at this stage of gestation. IMPRESSION: 1. Single intrauterine gestation in vertex presentation. 2: Total biophysical profile score of 6 out of 8. Findings given to Dr. Waller at 4:50 PM on 12/17/2024. Reviewed, dictated and finalized at location A.
--- NOTE | ~2024-12-18 | US_ITS ---
LIMITED OBSTETRIC ULTRASOUND/BIOPHYSICAL PROFILE Ordering provider: Heath Waller MD History: . BPP and OSCAR . Comparison: None. FINDINGS: MATERNAL CERVIX: Not visualized. cm which is normal (normal is equal to or greater than 3.0 cm). PRESENTATION: Vertex. Longitudinal lie. PLACENTAL LOCATION: Posterior. No previa. HEART RATE: 142 bpm (normal is between 110 to 160 bpm). AMNIOTIC FLUID INDEX: 12.4 cm. 5th percentile is 6.7 cm. 95th percentile is 27.7. Centimeter. Larges t vertical pocket is 4.3 cm. normal. OTHER: Maternal ovaries not visualized. SCORE: breathing movements: 2 movements: 2 tone: 2 Amniotic fluid volume: 2 Total: 8 IMPRESSION: Normal biophysical profile. Single live fetus of Vertex presentation. Reviewed, dictated and finalized at location A.
[2024-12-18 17:10] LABS: Basophils Percent Auto 0.1 % (0.2-1.2); Eosinophils Absolute Auto 0.1 K/mm3 (0-0.3); Eosinophils Percent Auto 0.4 % (0-4.4); Hematocrit 33.3 % (37.0-47.0); Hemoglobin 11.3 g/dL (12.0-15.0); Immature Granulocyte Absolute 0.06 K/mm3 (0.00-0.031); Immature Granulocyte Percent A 0.5 % (0-0.5); Lymphocytes Absolute Auto 2.41 K/mm3 (0.9-3.2); Lymphocytes Percent Auto 20.6 % (18.3-44.2); Mean Corpuscular HGB Conc 33.9 g/dl (32-36); Mean Corpuscular Hemoglobin 31.7 pg (26-34); Mean Corpuscular Volume 93.5 fl (80-100); Mean Platelet Volume 12.3 fl (7.4-10.4); Monocytes Absolute Auto 0.7 K/mm3 (0.1-0.6); Monocytes Percent Auto 5.7 % (2.6-8.5); Neutrophils Absolute Auto 8.5 K/mm3 (1.3-6.7); Neutrophils Percent Auto 72.7 % (45.5-73.1); Platelet Count Result 228 k/mm3 (150-375); Red Blood Count 3.56 M/mm3 (4.2-5.4); Red Cell Distribution Width 13.2 % (11.5-14.5); White Blood Count 11.7 K/mm3 (4.5-10.0)
[2024-12-18 17:15] LABS: Add Urine Microscopic? YES; Appearance Urine Cloudy (Clear); Bacteria Urine 4+ /hpf; Bilirubin Urine Negative (Negative); Blood Urine Negative (Negative); Color Urine Yellow (Yellow); Glucose Urine UA Negative (Negative); Ketones Urine 3+ mg/dL (Negative); Leukocyte Esterase Ur 3+ LEU/UL (Negative); Nitrate Urine Negative (Negative); Non Pathogenic Casts 0-2; Protein Urine 1+ mg/dL (Negative); RBC Urine 0-2 /hpf (0-2); Specific Grav Ur 1.033 (1.001-1.035); Squamous Epithelial Cell Urine Moderate /hpf (Few); WBC Urine 21-50 /hpf (0-3); pH Urine 6.5 (5.0-9.0)
[2024-12-18 17:22] LABS: Creatinine Urine 232.3 mg/dL
[2024-12-18 17:29] LABS: Total Protein Urine Random < 5 mg/dL; Ur Ttl Prot Creatinine Ratio < 0.02 mg/mg (0-0.20)
[2024-12-18 17:32] LABS: Alanine Aminotransferase 10 U/L (6-35); Albumin Level 3.3 g/dL (3.5-5.1); Alkaline Phosphatase 83 U/L (38-126); Anion Gap 7 mmol/L (4-12); Aspartate Amino Transferase 21 U/L (14-36); Bilirubin,Total 0.3 mg/dL (0.2-1.3); Blood Urea Nitrogen 13 mg/dL (7-17); Calcium 9.2 mg/dL (8.4-10.2); Carbon Dioxide 20 mmol/L (22-30); Chloride 108 mmol/L (98-107); Estimated Glomerular Filt Rate > 60; Glucose 100 mg/dL (65-110); Potassium 3.7 mmol/L (3.4-5.0); Sodium 135 mmol/L (137-145); Uric Acid 4.3 mg/dL (2.5-7.5)
[2024-12-18 17:54] VITALS: BP 126/69; PULSE 91
== END 2025-01-11 06:55 | disposition home or self-care (01) ==
LOC: ANHOBOP 16:19
PROVIDERS: PCP Obstetrics & Gynecology; Visit Provider Obstetrics & Gynecology
DX: E07.9 Disorder of thyroid, unspecified (principal)
CPT/HCPCS: 36415; 59025; 76815; 76819; 80053; 81001; 82570; 84156; 84550; 85025

== ENCOUNTER 2024-12-24 09:08 | Inpatient (IN) | payer OTHER, SELFPAY ==
[2024-12-24] VITALS (34 sets, daily range): BP systolic 114–188; BP diastolic 58–122; PULSE 79–131; TEMP 36.7–36.9; O2SAT 98–100; BMI 35.2
--- NOTE | 2024-12-24 11:12 | LDADM ---
This patient, Mayte Sherman, was admitted to Labor/Delivery/Recovery 105 on 12/24/24 at 09:08. Plans for labor, pain management and were discussed with patient. Patient/family oriented to hospital policies and general routines including ID bracelet, bed and alarms, visiting hours, pain management, procedures, bathroom and other care routines, personal items, smoking policy, room service/diet and guest tray routines, infant security routines, and visiting hours. Patient/Family are encouraged to report perceived risks to care and to ask questions if they do not understand what they are told or what they should do. See OBIX for further documentation.
[2024-12-24 11:27] LABS: Basophils Percent Auto 0.2 % (0.2-1.2); Eosinophils Percent Auto 0.3 % (0-4.4); Hematocrit 38.7 % (37.0-47.0); Hemoglobin 12.9 g/dL (12.0-15.0); Immature Granulocyte Absolute 0.08 K/mm3 (0.00-0.031); Immature Granulocyte Percent A 0.7 % (0-0.5); Lymphocytes Absolute Auto 2.55 K/mm3 (0.9-3.2); Lymphocytes Percent Auto 22.2 % (18.3-44.2); Mean Corpuscular HGB Conc 33.3 g/dl (32-36); Mean Corpuscular Hemoglobin 31.2 pg (26-34); Mean Corpuscular Volume 93.7 fl (80-100); Mean Platelet Volume 12.5 fl (7.4-10.4); Monocytes Absolute Auto 0.7 K/mm3 (0.1-0.6); Monocytes Percent Auto 6.1 % (2.6-8.5); Neutrophils Absolute Auto 8.1 K/mm3 (1.3-6.7); Neutrophils Percent Auto 70.5 % (45.5-73.1); Platelet Count Result 237 k/mm3 (150-375); Red Blood Count 4.13 M/mm3 (4.2-5.4); Red Cell Distribution Width 13.4 % (11.5-14.5); White Blood Count 11.5 K/mm3 (4.5-10.0)
[2024-12-24 11:38] LABS: Alanine Aminotransferase 12 U/L (6-35); Alkaline Phosphatase 88 U/L (38-126); Anion Gap 8 mmol/L (4-12); Aspartate Amino Transferase 21 U/L (14-36); Bilirubin,Total 0.4 mg/dL (0.2-1.3); Blood Urea Nitrogen 10 mg/dL (7-17); Carbon Dioxide 22 mmol/L (22-30); Chloride 107 mmol/L (98-107); Estimated CRCL calculation 158 ml/min; Estimated Glomerular Filt Rate > 60; Glucose 79 mg/dL (65-110); Sodium 137 mmol/L (137-145); Total Protein 7.8 g/dL (6.3-8.2); Uric Acid 4.1 mg/dL (2.5-7.5)
[2024-12-24] MEDS: AMPICILLIN 2 GM/NS 100 ML 2 GM/100 ML BAG IVPB (12:22)
[2024-12-24] MEDS: miSOPROStol 25 MCG TABLET BUCCAL (12:22)
[2024-12-24] MEDS: LACTATED RINGERS 1,000 ML 125 ML IV CONT (12:24)
[2024-12-24 13:34] LABS: OBXCEM ROM Plus Negative (Negative)
[2024-12-24 16:10] LABS: Syphilis IgG/IgM Antibody Negative (Negative)
[2024-12-24] MEDS: OXYTOCIN 30 UNITS/NS 500 ML 30 UNITS/500 ML BAG IV CONT (16:25)
[2024-12-24] MEDS: AMPICILLIN 1 GM/NS 50 ML 1 GM/50 ML BAG IVPB ×2 (16:26→20:31)
[2024-12-24 21:17] LABS: HIV 1/2 Ab P24 Ag Result Negative (Negative)
--- NOTE | 2024-12-24 22:15 | P.PNAN_ITS ---
Anes - Eval Pre Procedure Procedure: Labor Epidural Date/Time: 12/24/24 22:15 Surgeon: Sridhar Preop Diagnosis: Labor Pain Pre Op Diagnosis: IOL Patient Data Age: 29 Gender: F Height: 1.75 m Weight: 108 kg Last Vital Signs Temp 36.7 C 12/24/24 17:00 Pulse 96 12/24/24 20:45 BP 156/108 H 12/24/24 20:45 Pulse Ox 100 12/24/24 22:13 O2 Del Method Room Air 12/24/24 11:10 Allergies Allergy/AdvReac Type Severity Reaction Status Date / Time Sulfa (Sulfonamide Allergy Unknown RASH Verified 12/24/24 08:47 Antibiotics) Home Medications ?Medication ?Instructions ?Recorded ?Confirmed ?Type docosahexaenoic acid 200 mg mg PO 07/10/24 12/06/24 History capsule ( DHA) Laboratory Tests 12/24/24 12/24/24 12/24/24 10:00 10:00 11:30 WBC 11.5 H K/mm3 (4.5-10.0) RBC 4.13 L M/mm3 (4.2-5.4) Hgb 12.9 g/dL (12.0-15.0) Hct 38.7 % (37.0-47.0) MCV 93.7 fl (80-100) MCH 31.2 pg (26-34) MCHC 33.3 g/dl (32-36) RDW 13.4 % (11.5-14.5) Plt Count 237 k/mm3 (150-375) MPV 12.5 H fl (7.4-10.4) Immature Gran % (Auto) 0.7 H % (0-0.5) Neut % (Auto) 70.5 % (45.5-73.1) Lymph % (Auto) 22.2 % (18.3-44.2) [place] % (Auto) 6.1 % (2.6-8.5) Eos % (Auto) 0.3 % (0-4.4) Baso % (Auto) 0.2 % (0.2-1.2) Lymph # (Auto) 2.55 K/mm3 (0.9-3.2) [place] # (Auto) 0.7 H K/mm3 (0.1-0.6) Eos # (Auto) 0.0 K/mm3 (0-0.3) Baso # (Auto) 0.0 K/mm3 (0.0-0.1) Abs Immat Gran (auto) 0.08 H K/mm3 (0.00-0.031) Absolute Neuts (auto) 8.1 H K/mm3 (1.3-6.7) Absolute Nucleated RBC 0.000 K/mm3 (0.0-0.012) Nucleated RBC % 0.0 % (0.0-0.2) Sodium 137 mmol/L (137-145) Potassium 4.0 mmol/L (3.4-5.0) Chloride 107 mmol/L (98-107) Carbon Dioxide 22 mmol/L (22-30) Anion Gap 8 mmol/L (4-12) BUN 10 mg/dL (7-17) Creatinine 0.59 L mg/dL (0.7-1.0) Estim Creat Clear Calc 158 ml/min Estimated GFR > 60 (59 - ) Glucose 79 mg/dL (65-110) Uric Acid Cancelled 4.1 mg/dL (2.5-7.5) Calcium 9.0 mg/dL (8.4-10.2) Total Bilirubin 0.4 mg/dL (0.2-1.3) AST 21 U/L (14-36) ALT 12 U/L (6-35) Alkaline Phosphatase 88 U/L (38-126) Total Protein 7.8 g/dL (6.3-8.2) Albumin 4.0 g/dL (3.5-5.1) Membranes Rupture Rom plus negative (Negative) Syphilis IgG/IgM Ab Negative (Negative) HIV 1&2 Ab/P24 Ag 4thGn Negative (Negative) Blood Type B Positive Antibody Screen Negative : gestational age (, TAMMY 12/31/24) Patient hx anesthesia problems: none Family hx anesthesia problems: none Results Review: All pre-operative results and documents have been reviewed as part of the pre- operative evaluation. [facility] Past Medical History Medical History Hyperthyroidism Patient denies medical problems Family History Family History Father Hypertension Mother Heart disease Hypertension Grandparent Hypertension Heart disease Aneurysm Social History Social History Smoking status: Former smoker Tobacco type: cigars Additional smoking assessment comments: smokes 1 cigar daily Alcohol intake: never Substance use: current Substance use type: marijuana Do You Feel Safe in your Home?: Yes Lack of Transportation: No Lack of Food: Never True Current Housing: I Have Housing Concerned About Future Housing: No Difficulty Paying Gas/Electric Bills: No Difficulty Paying for Meds: No Currently Unemployed: No Education: Associate Degree Difficulty w/ Childcare or Family Care: No Living arrangements: with family Additional living arrangements comments: fianc? 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
[2024-12-24] MEDS: fentaNYL CITRATE INJ (*CRX) 100 MCG/2 ML VIAL 50 MCG IV PUSH (23:00)
[2024-12-24] MEDS: LIDOCAINE 1% LOCAL INJ 20 ML VIAL INFILTRATE (23:00)
--- NOTE | 2024-12-24 23:20 | PM.IMHP ---
H&P: HPI History of Present Illness Date/Time: 12/24/24 23:20 Chief Complaint: Gestational hypertension Narrative: 29 y/o 39 weeks with second elevated blood pressure today. No severe symptoms. She was recommended for delivery. PNC significant for hyperthyroidism, was on medication and then discontinued. Serial growth ultrasounds and surveillance normal. Review of Systems Review of Systems: All systems reviewed & are unremarkable except as noted in HPI and below Constitutional: Constitutional: Reports no additional constitutional complaints and Denies headache(s) Eyes: Eyes: Denies spots in vision ENT: Reports system reviewed and no additional complaints, except as documented and Denies headache(s) Cardiovascular: Cardiovascular: Denies chest pain and Denies dyspnea Respiratory: Respiratory: Denies dyspnea Gastrointestinal: Gastrointestinal: Reports no additional gastrointestinal complaints Genitourinary: Genitourinary: Reports amenorrhea Musculoskeletal: Musculoskeletal: Reports no additional musculoskeletal complaints Integumentary/Breasts: Skin/Breast: Denies breast mass and Denies rash Neurologic: Denies headache(s) Psychiatric: Psychiatric: Reports no additional psychiatric complaints [facility] Past Medical History Medical History Hyperthyroidism Patient denies medical problems Family History Family History Father Hypertension Mother Heart disease Hypertension Grandparent Hypertension Heart disease Aneurysm Social History Social History Smoking status: Former smoker Tobacco type: cigars Additional smoking assessment comments: smokes 1 cigar daily Alcohol intake: never Substance use: current Substance use type: marijuana Do You Feel Safe in your Home?: Yes Lack of Transportation: No Lack of Food: Never True Current Housing: I Have Housing Concerned About Future Housing: No Difficulty Paying Gas/Electric Bills: No Difficulty Paying for Meds: No Currently Unemployed: No Education: Associate Degree Difficulty w/ Childcare or Family Care: No Living arrangements: with family Additional living arrangements comments: fianc? 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 Gender identity (if verbalized by the patient): Female Sexual Orientation (if Verbalized by the Patient): Straight or Heterosexual Spiritual care concerns: No Meds Home Medications and Allergies Home Medications ?Medication ?Instructions ?Recorded ?Confirmed ?Type docosahexaenoic acid 200 mg mg PO 07/10/24 12/06/24 History capsule ( DHA) Allergies Allergy/AdvReac Type Severity Reaction Status Date / Time Sulfa (Sulfonamide Allergy Unknown RASH Verified 12/24/24 08:47 Antibiotics) Vital Signs Vital Signs - 24 hr 12/24/24 09:45 12/24/24 10:00 12/24/24 10:15 Temperature Pulse Rate 91 89 88 Blood Pressure 114/59 L 141/93 H 135/90 Pulse Oximetry Oxygen Delivery 12/24/24 10:30 12/24/24 10:45 12/24/24 11:00 Temperature 98.4 F Pulse Rate 80 80 Blood Pressure 133/80 143/80 H Pulse Oximetry Oxygen Delivery 12/24/24 11:10 12/24/24 11:30 12/24/24 11:45 Temperature Pulse Rate 82 79 Blood Pressure 135/84 135/91 H Pulse Oximetry Oxygen Delivery Room Air 12/24/24 12:00 12/24/24 12:15 12/24/24 12:22 Temperature Pulse Rate 101 H 83 Blood Pressure 148/81 H 188/122 H 158/98 H Pulse Oximetry Oxygen Delivery 12/24/24 13:15 12/24/24 13:30 12/24/24 13:45 Temperature Pulse Rate 79 86 82 Blood Pressure 151/91 H 123/58 L 131/63 Pulse Oximetry Oxygen Delivery 12/24/24 14:00 12/24/24 14:15 12/24/24 15:45 Temperature Pulse Rate 87 80 100 Blood Pressure 142/77 H 147/82 H 140/95 H Pulse Oximetry Oxygen Delivery 12/24/24 16:00 12/24/24 16:15 12/24/24 16:30 Temperature Pulse Rate 94 105 H 95 Blood Pressure 141/78 H 150/97 H 137/85 Pulse Oximetry Oxygen Delivery 12/24/24 16:45 12/24/24 17:00 12/24/24 17:15 Temperature 98.1 F Pulse Rate 98 93 86 Blood Pressure 158/91 H 141/103 H 143/88 H Pulse Oximetry Oxygen Delivery 12/24/24 17:45 12/24/24 18:00 12/24/24 18:15 Temperature Pulse Rate 97 100 100 Blood Pressure 143/79 H 130/88 120/95 H Pulse Oximetry Oxygen Delivery 12/24/24 18:30 12/24/24 19:00 12/24/24 19:15 Temperature Pulse Rate 119 H 98 94 Blood Pressure 145/91 H 126/94 H 138/95 H Pulse Oximetry Oxygen Delivery 12/24/24 20:45 12/24/24 22:08 12/24/24 22:13 Temperature Pulse Rate 96 Blood Pressure 156/108 H Pulse Oximetry 99 100 Oxygen Delivery 12/24/24 22:49 12/24/24 22:51 Temperature Pulse Rate Blood Pressure Pulse Oximetry 100 98 Oxygen Delivery Exam Const: General: no acute distress Eyes: General: appearance normal, both eyes and all related structures Resp: Effort & Inspection: normal respiratory effort Cardio: Rate: regular rate GI: Other: Gravid no fundal tenderness no right upper quadrant pain Skin: General skin exam: no rashes or lesions noted Neuro: Cognition (Neuro): normal cognition Extrem: General: normal to inspection Psych: Mental Status: mental status grossly normal H&P: Results Labs Labs: Short CBC 12/24/24 Range/Units 10:00 WBC 11.5 H (4.5-10.0) K/mm3 Hgb 12.9 (12.0-15.0) g/dL Hct 38.7 (37.0-47.0) % Plt Count 237 (150-375) k/mm3 BMP 12/24/24 10:00 Sodium 137 Potassium 4.0 Chloride 107 Carbon Dioxide 22 BUN 10 Creatinine 0.59 L Glucose 79 Calcium 9.0 Liver Function 12/24/24 Range/Units 10:00 Total Bilirubin 0.4 (0.2-1.3) mg/dL AST 21 (14-36) U/L ALT 12 (6-35) U/L Alkaline Phosphatase 88 (38-126) U/L Albumin 4.0 (3.5-5.1) g/dL Assessment and Plan Assessment and plan (1) Gestational hypertension: Code(s): O13.9 - Gestational [-induced] hypertension without significant proteinuria, unspecified trimester Status: Acute Assessment and Plan: Admit. Cervidil.
--- NOTE | 2024-12-24 23:20 | PM.OBPRVD ---
OB - Vaginal Delivery Note Procedure Delivery date: 12/24/24 Events: Gestational Hypertension Induction method: Per Misoprostol Protocol and Per Pitocin Protocol Delivery augmentation: Rupture of Membranes and Pitocin Delivery monitor: External FHT Route of delivery: Episiotomy description: None Laceration Description: Perineal - 2nd Degree and Vaginal (right side hemostatic, no suturing required) Delivery repair: vicryl (3.0 vicryl) Specimen: No Quantitative Blood Loss (ml): 150 Anesthesia type: Local Disposition: Floor Complications: No immediate complications Narrative: She was admitted for gestational hypertension. She received one dose of cytotec. She had AROM clear fluid. She had Pitocin augmentation. She progressed to active labor. She had a vaginal delivery. Infant's nose mouth suctioned at perineum. Loose nuchal cord manually reduced. The shoulders delivered with gentle traction. The rest of delivered. Infant crying and placed on maternal abdomen. Baby Date of : 12/24/24 Time of : 22:50 Gestational Age by Date: 39 Infant gender: Male Weight (pounds): 7 Weight (ounces): 3 presentation: vertex position: Left Occiput Anterior Placenta delivery description: Spontaneous Cord Vessel Description: 3 Vessels, Loose, Clamped/Cut and Delayed Cord Clamping
[2024-12-24] MEDS: OXYTOCIN 30 UNITS/NS 500 ML 30 UNITS/500 ML BAG 125 UNITS IV CONT (23:26)
[2024-12-25 02:00] VITALS: BP 113/77; PULSE 86; RESP 18; TEMP 37.3; O2SAT 99
[2024-12-25] MEDS: ACETAMINOPHEN 325 MG TABLET 650 MG PO (02:00)
[2024-12-25 05:07] VITALS: BP 121/68; PULSE 78; RESP 20; TEMP 37.1; O2SAT 99
[2024-12-25 05:35] LABS: Hematocrit 31.7 % (37.0-47.0); Hemoglobin 10.7 g/dL (12.0-15.0)
[2024-12-25 07:35] VITALS: BP 131/76; PULSE 104; RESP 18; TEMP 36.9; O2SAT 99
--- NOTE | 2024-12-25 08:30 | PC.NURSE ---
Introductions were made, then consulted with patient to assess needs related to . Mother led the conversation with her?plans to feed?her and the?experience so far. Per mother, infant latched well and fed well for his first feeding but then would not latch, night RN gave mother a latch assist to see if that would help, thought mother had flat nipples. Mother's nipples are everted, she has larger softer breasts, CLC RN measured both nipples and brought in breast pump and supplies if needed, both measured 21mm. Encouraged understanding of the benefits of skin to skin (demonstrating unwrapping infant and placing upright on her chest), stimulating with massage touch, changing positions to encourage wakefulness, how to watch for early feeding cues, responsive feeding, feeding on demand (aiming for 8-12 times in 24 hours, about every 2-3 hours), milk production, building/maintaining a milk supply, duration of feeding, signs of adequate intake/output and how to record on the feeding sheet. Mother works well with her infant with encouragement and education. Reviewed positioning and ear, shoulder, hip alignment, supporting the breast to facilitate a deep latch, asymmetrical latch (off-center), leading with the chin with a big, open, wide gape and body close to mother. Infant attempted to latch optimally to the [right] breast in [cross cradle] position but is showing no feeding cues at this time, mother to put baby skin to skin and call CLC RN. Mother works well with infant, he had taken 20mls from the bottle at 0500 (per mom request). Mother voiced understanding of skin to skin, stimulating with massage touch, responsive feedings, hand expressed colostrum, talking to to encourage if it has been 2 -2.5 hours since the start of the last , to call if does not latch, or if there is discomfort with . Resources used for education were facilitated with the [visual educational handouts/ tool/mom and baby guide], Inpatient/outpatient resources provided with business card, feeding sheet, name written on the communication board, and the mom/baby guide. Parents voiced understanding of information, demonstrated learning and will call if there is a request for assistance. Reported to the Primary RN.
[2024-12-25] MEDS: MULTIVIT/MIN/PREN/FOL AC/IRON TABLET 1 TAB PO (09:36)
[2024-12-25] MEDS: IBUPROFEN 600 MG TABLET PO ×2 (09:36→19:43)
[2024-12-25] MEDS: DOCUSATE SODIUM 100 MG CAPSULE PO ×2 (09:36→17:05)
[2024-12-25 12:37] VITALS: BP 118/71; PULSE 78; RESP 16; TEMP 37.2; O2SAT 100
--- NOTE | 2024-12-25 12:42 | P.PNOB_ITS ---
OB - PN: Subj Subjective Date/time seen: 12/25/24 12:42 Patient comments: pain well controlled, tolerating diet and other (Decreasing lochia.) baby status: doing well and nursing well OB - PN: Obj Data Labs 12/25/24 05:01 12/24/24 10:00 Labs: Laboratory Results - last 24 hr 12/24/24 12/24/24 12/25/24 10:00 11:30 05:01 Hgb 10.7 L Hct 31.7 L Membranes Rupture Rom plus negative Syphilis IgG/IgM Ab Negative HIV 1&2 Ab/P24 Ag 4thGn Negative OB - PN A/P Assessment and Plan (1) Vaginal delivery: Code(s): O80 - Encounter for full-term uncomplicated delivery Status: Acute Plan day: 1 Plan: routine care Comments: Patient doing well. Time Spent With Patient Time: Total time spent is greater than 50% in coordination of care (as documented) at patient's floor/unit and/or counseling patient: Exam 2 Psych: Affect: normal affect Other: Abd: fundus firm below umbilicus, nontender Perineum: healing Ext: nontender
[2024-12-25 20:20] VITALS: BP 133/91; PULSE 87; RESP 19; TEMP 36.7; O2SAT 100
[2024-12-26 00:28] VITALS: BP 123/63; PULSE 73; RESP 19; TEMP 36.6; O2SAT 100
[2024-12-26 04:33] VITALS: BP 127/87; PULSE 88; RESP 18; TEMP 36.8; O2SAT 100
--- NOTE | 2024-12-26 07:59 | P.PNOB_ITS ---
OB - PN: Subj Subjective Date/time seen: 12/26/24 07:59 Patient comments: pain well controlled, tolerating diet and other (Decreasing lochia.) baby status: doing well and nursing well OB - PN: Obj Data Labs 12/25/24 05:01 12/24/24 10:00 OB - PN A/P Assessment and Plan (1) Vaginal delivery: Code(s): O80 - Encounter for full-term uncomplicated delivery Status: Acute Plan day: 2 Plan: discharge home and other Comments: Patient doing well. Follow up 4-6 weeks. Discharge instructions provided. Time Spent With Patient Time: Total time spent is greater than 50% in coordination of care (as documented) at patient's floor/unit and/or counseling patient: Time with patient: less than 15 minutes Review of Systems 2 Review of Systems: All systems reviewed & are unremarkable except as noted in HPI and below Constitutional: Constitutional: Reports no additional constitutional complaints Cardiovascular: Cardiovascular: Denies dyspnea Respiratory: Respiratory: Denies dyspnea Gastrointestinal: Gastrointestinal: Reports no additional gastrointestinal complaints and Denies abdominal pain Genitourinary: Genitourinary: Reports no additional female genitourinary complaints Exam 2 Psych: Affect: normal affect Other: Abd: fundus firm below umbilicus, nontender Ext: nontender
--- NOTE | 2024-12-26 08:01 | P.DS_ITS ---
DS: Admitting Diagnosis Discharge Date December 26, 2024 Admitting Diagnosis gestational hypertension DS: Discharge Diagnosis Discharge Diagnosis (1) Gestational hypertension: Code(s): O13.9 - Gestational [-induced] hypertension without significant proteinuria, unspecified trimester Status: Acute (2) Encounter for induction of labor: Code(s): Z34.90 - Encounter for supervision of normal , unspecified, unspecified trimester Status: Acute (3) Vaginal delivery: Code(s): O80 - Encounter for full-term uncomplicated delivery Status: Acute OB - DS: Summary Hospital Course Hospital Course: she was admitted for induction of labor due to gestational hypertension. She had 1 dose of Cytotec and then had Pitocin and rupture of membranes augmented labor. She progressed to complete and had an uncomplicated vaginal delivery. she did well she had an isolated mildly elevated blood pressure no signs or symptoms of preeclampsia. Baby did well. day 1 she was ambulating well had adequate pain control lochia was decreasing. day 2 she was doing well did not have any signs or symptoms of severe preeclampsia . She was discharged home on day 2. OB Procedures : Ultrasound OB Procedures Intrapartum: Spontaneous Vag Delivery OB Procedures: : None Peripartum Data Delivery Method: Natural Vaginal Laceration Description: Perineal - 2nd Degree and Vaginal (right side hemostatic, no suturing required) Episiotomy description: None complications: none Status at Discharge Functional status at discharge: independent ambulation Time Spent with Patient Time attestation: Total time spent providing and/or coordinating discharge services: Exam Const: General: cooperative Orientation/consciousness: oriented to person, oriented to place and oriented to time HENMT: Face/Nose/Sinus: Normal external nose present Eyes: General: appearance normal, both eyes and all related structures Resp: Effort & Inspection: normal respiratory effort GI: Inspection: normal to inspection Skin: General skin exam: normal color Neuro: General: oriented to person, oriented to place and oriented to time Extrem: General: normal to inspection and no calf tenderness Psych: Appearance: grossly normal Mental Status: mental status grossly normal Discharge Plan Discharge Attending physician on discharge: Heath Waller Consulting providers: Lisa Alfred Discharging Clinician: Heath Waller Anticipated Discharge Date/Time: 12/26/24 08:04 Patient Disposition: Home Activity: may shower, no straining and pelvic rest Diet: regular Patient Instructions: Antibiotic Form Patient Language: Citizen Of [place] Stand Alone Forms: General Discharge Information Follow-up/Referrals: Heath Waller MD [Physician] - 2 Weeks ( Call for appointment) Discharge Medications: No Action DHA 200 mg capsule PO Date of admission: 12/24/24 09:08 Primary Care Provider: PHYSICIAN,CAR BODY INSPECTOR Admitting Provider: Heath Waller Attending physician on admission: Heath Waller Condition: Stable
[2024-12-26 08:35] VITALS: BP 126/88; PULSE 75; RESP 18; TEMP 36.9; O2SAT 100
[2024-12-26] MEDS: MULTIVIT/MIN/PREN/FOL AC/IRON TABLET 1 TAB PO (10:00)
[2024-12-28 08:25] VITALS: BP 136/85; PULSE 80; RESP 20; TEMP 37.1; O2SAT 100
== END 2024-12-26 13:40 | disposition home or self-care (01) | DRG 560 ==
LOC: ANHLDR 09:20 → ANHOB2 12-25 01:26
PROVIDERS: Admitting Provider Obstetrics & Gynecology; Visit Provider Obstetrics & Gynecology
DX: O13.4 Gestational [pregnancy-induced] hypertension without significant proteinuria, complicating childbirth (principal); O99.284 Endocrine, nutritional and metabolic diseases complicating childbirth; E05.90 Thyrotoxicosis, unspecified without thyrotoxic crisis or storm; O70.1 Second degree perineal laceration during delivery; O69.81X0 Labor and delivery complicated by cord around neck, without compression, not applicable or unspecified; O99.824 Streptococcus B carrier state complicating childbirth; O62.3 Precipitate labor; Z3A.39 39 weeks gestation of pregnancy; Z37.0 Single live birth
CPT/HCPCS: 36415; 80053; 84112; 84550; 85014; 85018; 85025; 86593; 86703; 86850; 86900; 86901; A9270; G0432; J0290; J2003; J2590; J3010; J7120

== ENCOUNTER 2025-03-18 07:23 | Emergency (ER) | payer OTHER, SELFPAY ==
--- NOTE | ~2025-03-18 | XR_ITS ---
EXAMINATION: XR chest 2V 03/18/2025 08:18 INDICATION: Chest pain and cough PROCEDURE: 2 view chest COMPARISON: No prior studies for comparison. FINDINGS: The lungs are clear. The cardiomediastinal silhouette is within normal limits. There are no pleural effusions. There is no pneumothorax suspected. IMPRESSION: 1: NO ACUTE CARDIOPULMONARY DISEASE. Reviewed, dictated and finalized at location O.
--- OUTSIDE RECORDS SUMMARY | 2025-03-18 07:25 | XMS_ITS | Continuity of Care Document ---
Author Name [facility] Organization [facility] Care Team Providers Care Squilgeer Name Role Phone [facility] Unavailable Unavailable Problems Combined list of problems from Department of Defense and Veterans Affairs facilities. It does not include entries that were removed or entered in error. 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 It does not include entries that were removed or entered in error. 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 Immunizations Combined list of available immunizations from the Department of Defense and Veterans Affairs facilities. Immunization Series Date Given Administered By Site Reaction Lot Number CVX Code Drug Merchandise Carrier Status Comments Source tuberculin skin test; purified protein derivative solution, intradermal 0 2015 ELLEN HERNANDEZ [id number] Sanofi Pasteur ([facility]) complet ed tuberculi n skin test; purified protein derivativ e solution, intraderm al DoD meningococcal polysaccharid e (groups A, C, Y and W-135) diphtheria toxoid conjugate vaccine (MCV4P) 1 2015 MOE GIBBS [id number] Sanofi Pasteur ([facility]) complet ed meningoco ccal polysacch aride (groups A, C, Y and W-135) diphtheri a toxoid conjugate vaccine (MCV4P) DoD Encounters Combined list of: 1) Encounters from Department of Veterans Affairs facilities going backup to the last 18 months, not all VA inpatient encounters are included; 2) Encounters from the Department of Defense facilities going backup to 280 months. Location Location Details Encounter Type Encounter Number Reason For Visit Attending Provider ADM Date DC Date Status Disposition Source [facility](Me brandin Melissa t/1523) OUTPATIENT [id number] Notes Entered by: Juli HUTCHINS 14 Mar 2016 0729 ------- ------- ------- ------- -- allergy [id number] CADY KAJAL L 03/14 Released w/o Limitations [facility]( Med. Assessm ent/152 3) [facility](Op tometry [facility] 1523) OUTPATIENT [id number] JONO EMANUEL 03/14 Released w/o Limitations [facility]( Optomet ry [facility] 1523) [facility] Female) OUTPATIENT [id number] VIKTORIYA ESTRADA 03/15 Released w/o Limitations [facility]( [facility](Au diology [facility] 1523) OUTPATIENT [id number] ANGEL LUIS SELLERS 03/15 Released w/o Limitations [facility]( Audiolo gy [facility] 1523) [facility](Im munizatio n 1523) OUTPATIENT [id number] Notes Entered by: LUIS GIBBS 16 Mar 2016 1025 ------- ------- ------- ------- -- SEPS AMERICO Calabrese 03/16 Released w/o Limitations [facility]( Immuniz ation 1523) [facility](Co urage (Jimy) 1007) OUTPATIENT [id number] CT CX TX JOSE F REYES 03/24 Released w/o Limitations [facility]( Courage (Jimy) 1007) [facility]) OUTPATIENT [id number] Notes Entered by: TRACY DE LA TORRE 05 Apr 2016 0655 ------- ------- ------- ------- -- cold sxs ROBBIE DELGADO 04/05 Released with Work/Duty Limitations [facility]( Ship ROTC) [facility](Pr ev Med Immunizat ions/237) OUTPATIENT [id number] Notes Entered by: SHAHRZAD DUTTA 05 Apr 2016 0720 ------- ------- ------- ------- -- TST PPD TB Testing AMERICO TORRES 04/05 Released w/o Limitations [facility]( Prev Med Immuniz ations/ 237) Procedures Combined list of: 1) Procedures from Department of Veterans Affairs facilities going back up to thelast 18 months, not all VA non-surgical procedures are included; 2) All procedures from the Department of Defense facilities. Procedure Procedure Type Code Date Perfomer Comments Sourwojciech dias No data available for this section [facility] Pharmacy Health And Behav Intervention, Each 15 Min Grp (2 Or More) Health And Behav Intervention, Each 15 Min Grp (2 Or More) 35390 016 ABBI CALVO GROUP (30 MIN) [facility] Health And Behav Intervention, Each 15 Min Grp (2 Or More) Health And Behav Intervention, Each 15 Min Grp (2 Or More) 58704 016 ABBI CALVO GROUP (60 MIN) [facility] Skin Test Anergy Tuberculin Intradermal Skin Test Anergy Tuberculin Intradermal 61581 016 ELLEN HERNANDEZ IPPD; Series #: 1; .1 mL; ID; Left Arm; Mfg: Sanofi Pasteur; Lot: [id number]; VIS given. [facility] Psychiatric Therapy Counseling Family / Guardians Psychiatric Therapy Counseling Family / Guardians [id number] 016 MAGED ALCANTAR DoD Immunization Administration One Vaccine Immunization Administration One Vaccine 50694 016 MOE GIBBS DoD Meningococcal Polysacch Diphtheria Toxoid Conjugate Vaccine 016 MOE GIBBS Meningococcal MCV4P; Series #: 1; .5 mL; IM; Left Arm; Mfg: Sanofi Pasteur; Lot: [id number]; VIS given (Louann: 05/06/11). [facility] Audiometry Group Testing Audiometry Group Testing [id number] 016 ANGEL LUIS SELLERS [facility] Threshold Audiogram (Pure Tone) Threshold Audiogram (Pure Tone) 38417 ANGEL LUIS SELLERS [facility] Psychiatric Therapy Environmental Intervention Psychiatric Therapy Environmental Intervention 50532 MAGED ALCANTAR [facility] Psychiatric Therapy Preparation of Psychiatric Status Report Psychiatric Therapy Preparation of Psychiatric Status Report 27541 MAGED ALCANTAR [facility] Health And Behav A e mt Each 15 Min Initial A e ment Health And Behav Assessmt Each 15 Min Initial Assessment 13365 MAGED ALCANTAR SR evaluated for 120 minutes [facility] Patient education, not otherwise cla ified, non-physician provider, group, per se ion KIA GONZÁLES [facility] Visual Function Screening Visual Function Screening 03294 VIRA OWUSU [facility] HEALTH AND BEHAVIOR INTERVENTION, EACH 15 MINUTES, [id number]; GROUP (2 OR MORE PATIENTS) [facility] HEALTH AND BEHAVIOR INTERVENTION, EACH 15 MINUTES, [id number]; GROUP (2 OR MORE PATIENTS) [facility] SKIN TEST; TUBERCULOSIS, INTRADERMAL [facility] INTERPRETATION OR EXPLANATION OF RESULTS OF PSYCHIATRIC, OTH MEDICAL EXAMS/PROCEDURES, OR OTH ACCUMULATED DATA TO FAMILY OR OTH RESPONSIBLE PERSONS,OR ADVISING THEM HOW TO ASSIST PATIENT [facility] IMMUNIZATION ADMINISTRATION (INCLUDES PERCUTANEOUS, INTRADERMAL, SUBCUTANEOUS, OR INTRAMUSCULAR INJECTIONS); 1 VACCINE (SINGLE OR COMBINATION VACCINE/TOXOID) [facility] ENVIRONMENTAL INTERVENTION FOR MEDICAL MGMT PURPOSES ON A PSYCHIATRIC PATIENT'S BEHALF WITH AGENCIES, EMPLOYERS, OR INSTITUTIONS [facility] PATIENT EDUCATION, NOT OTHERWISE CLASSIFIED, NON-PHYSICIAN PROVIDER, GROUP, PER SESSION [facility] PURE TONE AUDIOMETRY (THRESHOLD); AIR ONLY [facility] VIS FUNCT SCREEN,AUTOMAT/SE VA-AUTOMAT BILAT QUANT DETERM VISUAL ACUITY,OCULAR ALIGN,COLOR VISION,PSEUDOISOC HROMAT PLATES,& FIELD VIS (MAY INC ALL/SOME SCRN DETERM FOR CONTRAST SENSITIV,VIS UND GLARE) [facility] Social History Combined list of available smoking, tobacco, and other social history from Department of Defense and Veterans Affairs facilities. Social History Type Response Date Comment Sour e Sex Representation Female (finding) 08/17/2023 Unknown Organization Sexual Orientation Amb[facility]ory Pharmacy Gender identity [facility]ulator [facility] Pharmacy This section is an empty social history section. DoD Assessment and Plan Combined list of future care activities from Department of Defense and Veterans Affairs facilities (e.g., assessment and plan notes, appointments, orders, and referrals). Additional future care activities may be listed in the Plan of Care section. Result Assessment and Plan Date Source Assessment and Plan No data available for this section 03/18/2025 Ambulatory Pharmacy Functional Status Combined list of recent functional and cognitive assessments recorded at Department of Defense and [facility] Affairs ([place] Functional [place] Measurement (FIM) Scale: 1 = Total Assistance (Subject = 0% +), 2 = Maximal Assistance (Subject = 25% +), 3 = Moderate Assistance (Subject = 50% +), 4 = Minimal Assistance (Subject = 75% +), 5 = Supervision, 6 = Modified [place] (Device), 7 = Complete [place] (Timely, Safely). Assessment Date/Time Source Assessment Type Assessment Skill Assessment Score Assessment Details No data available for this section
--- OUTSIDE RECORDS SUMMARY | 2025-03-18 07:25 | XMS_ITS | Continuity of Care Document ---
Author Name [facility] Organization [facility] Care Team Providers Care [place]. Commissioner Name Role Phone [facility] Unavailable Unavailable Problems Combined list of problems from Department of Defense and Veterans Affairs facilities. It does not include entries that were removed or entered in error. 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 It does not include entries that were removed or entered in error. 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 Immunization Series Date Given Administered By Site Reaction Lot Number CVX Code Drug Board Member Status Comments Source tuberculin skin test; purified protein derivative solution, intradermal 0 2015 ELLEN HERNANDEZ [id number] Sanofi Paste[employer] ([facility]) complet ed tuberculi n skin test; purified protein derivativ e solution, intraderm al DoD meningococcal polysaccharid e (groups A, C, Y and W-135) diphtheria toxoid conjugate vaccine (MCV4P) 1 2015 MOE GIBBS [id number] Sanofi Pasteur ([facility]) complet ed meningoco ccal polysacch aride (groups [...] ADM Date DC Date Status Disposition Source [facility] [place](Me brandin Melissa t/1523) OUTPATIENT [id number] Notes Entered by: Juli HUTCHINS 14 Mar 2016 0729 ------- ------- ------- ------- -- allergy [id number] CADY KAJAL L 03/14 Released w/o Limitations [facility] [place]( Med. Assessm ent/152 3) [facility](Op tometry [facility] 1523) OUTPATIENT [id number] JONO EMANUEL 03/14 Released w/o Limitations [facility] [place]( Optomet ry [facility] 1523) [facility](We [facility] Female) OUTPATIENT [id number] VIKTORIYA ESTRADA 03/15 Released w/o Limitations [facility]( [facility]) [facility](Au diology [facility] 1523) OUTPATIENT [id number] ANGEL LUIS SELLERS 03/15 Released w/o Limitations [facility]( Audiolo gy [facility] 1523) [facility](Im munizatio n 1523) OUTPATIENT [id number] Notes Entered by: LUIS GIBBS 16 Mar 2016 1025 ------- ------- ------- ------- -- SEPS AMERICO Calabrese 03/16 Released w/o Limitations [facility]( Immuniz ation 1523) [facility](Co urage (Jimy) 1007) OUTPATIENT [id number] CT CX TX JOSE F REYES 03/24 Released w/o Limitations [facility]( Courage (Jimy) 1007) [facility]) OUTPATIENT [id number] Notes Entered by: TRACY DE LA TORRE 05 Apr 2016 0655 ------- ------- ------- ------- -- cold sxs ROBBIE DELGADO 04/05 Released with Work/Duty Limitations [facility]( Ship ROTC) [facility](Pr ev Med Immunizat ions/237) OUTPATIENT [id number] Notes Entered by: SHAHRZAD DUTTA 05 Apr 2016 0720 ------- ------- ------- ------- -- TST PPD TB Testing AMERICO TORRES 04/05 Released w/o Limitations [facility] [place]( Prev Med Immuniz ations/ 237) Procedures Combined [...] Each 15 Min Grp (2 Or More) [id number] 016 ABBI CALVO GROUP (30 MIN) [facility] Health And Behav Intervention, Each 15 Min Grp (2 Or More) Health And Behav Intervention, Each 15 Min Grp (2 Or More) 94211 016 ABBI CALVO GROUP (60 MIN) [facility] Skin Test Anergy Tuberculin Intradermal Skin Test Anergy Tuberculin Intradermal [id number] 016 ELLEN HERNANDEZ IPPD; Series #: 1; .1 mL; ID; Left Arm; Mfg: Sanofi Pasteur; Lot: [id number]; VIS given. [facility] Psychiatric Therapy Counseling Family / Guardians Psychiatric Therapy Counseling Family / Guardians [id number] MAGED ALCANTAR DoD Immunization Administration One Vaccine Immunization Administration One Vaccine 21454 016 MOE GIBBS DoD Meningococcal Polysacch Diphtheria Toxoid Conjugate Vaccine 016 MOE GIBBS Meningococcal MCV4P; Series #: 1; .5 mL; IM; Left Arm; Mfg: Sanofi Pasteur; Lot: [id number]; VIS given (Louann: 05/06/11). [facility] Audiometry Group Testing Audiometry Group Testing [id number] ANGEL LUIS SELLERS [facility] Threshold Audiogram (Pure Tone) Threshold Audiogram (Pure Tone) 84114 ANGEL LUIS SELLERS [facility] Psychiatric Therapy Environmental Intervention Psychiatric Therapy Environmental Intervention 02025 MAGED ALCANTAR [facility] Psychiatric Therapy Preparation of Psychiatric Status Report Psychiatric Therapy Preparation of Psychiatric Status Report [id number] MAGED ALCANTAR [facility] Health And Behav A e mt Each 15 Min Initial A e ment Health And Behav Assessmt Each 15 Min Initial Assessment 14135 MAGED ALCANTAR SR evaluated for 120 minutes [facility] Patient education, not otherwise cla ified, non-physician provider, group, per se ion KIA GONZÁLES [facility] Visual Function Screening Visual Function Screening [id number] VIRA OWUSU [facility] HEALTH AND BEHAVIOR INTERVENTION, EACH 15 MINUTES, [id number]; GROUP (2 OR MORE PATIENTS) [facility] HEALTH AND BEHAVIOR INTERVENTION, EACH 15 MINUTES, [id number]; GROUP (2 OR MORE PATIENTS) [facility] SKIN TEST; TUBERCULOSIS, INTRADERMAL [facility] INTERPRETATION OR EXPLANATION OF RESULTS OF PSYCHIATRIC, OTH MEDICAL EXAMS/PROCEDURES, OR OTH ACCUMULATED DATA TO FAMILY OR OTH RESPONSIBLE PERSONS,OR ADVISING THEM HOW TO ASSIST PATIENT [facility] IMMUNIZATION ADMINISTRATION (INCLUDES PERCUTANEOUS, INTRADERMAL, SUBCUTANEOUS, OR INTRAMUSCULAR INJECTIONS); 1 VACCINE (SINGLE OR COMBINATION VACCINE/TOXOID) [facility] ENVIRONMENTAL INTERVENTION FOR MEDICAL MGMT PURPOSES ON A PSYCHIATRIC PATIENT'S BEHALF WITH AGENCIES, EMPLOYERS, OR INSTITUTIONS [facility] PATIENT EDUCATION, NOT OTHERWISE CLASSIFIED, NON-PHYSICIAN PROVIDER, GROUP, PER SESSION [facility] PURE TONE AUDIOMETRY (THRESHOLD); AIR ONLY [facility] VIS FUNCT SCREEN,AUTOMAT/SE MN-AUTOMAT BILAT QUANT DETERM VISUAL ACUITY,OCULAR ALIGN,COLOR VISION,PSEUDOISOC HROMAT PLATES,& FIELD VIS (MAY INC ALL/SOME SCRN DETERM FOR CONTRAST SENSITIV,VIS UND GLARE) [facility] Social History Combined list of available smoking, [...] at Department of Defense and [facility] [place] Functional [place] Measurement (FIM) Scale: 1 = Total Assistance (Subject = 0% +), 2 = Maximal Assistance (Subject = 25% +), 3 = Moderate Assistance (Subject = 50% +), 4 = Minimal Assistance (Subject = 75% +), 5 = Supervision, 6 = Modified [place] (Device), 7 = Complete [place] (Timely, Safely). Assessment Date/Time Source Assessment Type Assessment Skill Assessment Score Assessment Details No data available for this section
--- OUTSIDE RECORDS SUMMARY | 2025-03-18 07:27 | XMS_ITS | Clinical Summary ---
Author Organization [facility] Address [address] [place] [address] Phone Care Team Providers Care Heel Stainer Name Role Phone Unavailable Primary Care Provider Unavailabl e Allergies Active Allergy Reactions Criticality Noted Date Comments Sulfa (Sulfonamide Antibiotics) Other (See Comments) 08/01/2024 Rash and shortness of breath Medications vits15/iron/foli c/dss ( VIT 34-AIKM-UBZJM-DS S ORAL) Take by mouth. Active Active Problems Problem Noted Date Diagnosed Date Hyperthyroidism affecting in third [facility] 10/09/2024 Estimated Date of Delivery Comme nts Yes 12/31/2024 Encounters Date Type Department Care Team Description 02/26/2025 External Device Data [facility] ABSTRACTION Provider, Abstract 02/25/2025 External Device Data [facility] ABSTRACTION Provider, Abstract 02/05/2025 External Device Data [facility] ABSTRACTION Provider, Abstract 02/04/2025 External Device Data [facility] ABSTRACTION Provider, Abstract 01/21/2025 External Device Data [facility] ABSTRACTION Provider, Abstract from Last 3 Months Social History Tobacco [...] on file 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 Gender Identity Not on file Sexual Orientation Choose not to disclose 2024 3:44 PM RUFFLING MACHINE OPERATOR Last Filed Vital Signs Vital Sign Reading Time Taken Comments Blood Pressure - - Pulse - - Temperature - - Respiratory Rate - - Oxygen Saturation - - Inhaled Oxygen Concentration - - Weight 88.9 kg (196 lb) 09/12/2024 2:55 PM RUFFLING MACHINE OPERATOR Height 175.3 cm (5' 9) 09/12/2024 2:55 PM RUFFLING MACHINE OPERATOR Body Mass Index 28.94 09/12/2024 2:55 PM RUFFLING MACHINE OPERATOR Plan of Treatment Health Maintenance Due Date Last Done Comments CERVICAL CANCER SCREENING 2017 HPV/Cotest (21-29) 2017 PAP SMEAR 2017 DTAP/TDAP/TD VACCINES (7 - T d or Tdap) 03/21/2018 03/21/2008, 11/20/2000, 10/16/1997, Additional history exists INFLUENZA VACCINE (#1) 2025 3, 06/28/2010, 05/15/2009 HEPATITIS B VACCINES Completed 04/16/1997, 1996, 1996 HPV VACCINES Completed 11/21/2012, 01/2011, 06/28/2010 RSV VACCINE (60+ or ) (No Doses Required) Completed Insurance MEDICAID
[2025-03-18 07:34] VITALS: BP 140/98; PULSE 108; RESP 20; TEMP 37; O2SAT 94
--- OUTSIDE RECORDS SUMMARY | 2025-03-18 07:55 | XMS_ITS | Clinical Summary ---
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
--- NOTE | 2025-03-18 08:24 | ED.URI ---
HPI - URI/Sore Throat General Chief Complaint: Upper Respiratory Infection Stated Complaint: cough, congestion Time Seen by Provider: 03/18/25 07:48 History of Present Illness HPI Narrative: This is a 29-year-old female who presents to the ED for flu-like symptoms and chest pain. Patient states past few days, she has a nonproductive cough, congestion, sore throat and sternal chest pain worse with her cough and deep inspirations. She has had subjective fevers. She recently deliver her now 2-month-old. was uncomplicated. Related Data Home Medications ?Medication ?Instructions ?Recorded ?Confirmed ?Last Taken ?Type etonogestrel 68 mg subdermal 1 implant subdermal ONCE 03/05/25 03/05/25 Unknown History implant (Nexplanon) Allergies Allergy/AdvReac Type Severity Reaction Status Date / Time Sulfa (Sulfonamide Allergy Unknown RASH Verified 03/05/25 14:52 Antibiotics) Review of Systems Review of Systems: Gen.: As per HPI Eyes: Denies eye pain or visual change ENT: As per HPI Respiratory: As per HPI CV: Denies chest pain or palpitations GI: Denies abdominal pain nausea, emesis or diarrhea denies burning, urgency, frequency or hematuria Musculoskeletal: Denies back pain or muscle pain Neuro: Denies numbness, tingling, weakness or focal weakness Skin: Denies rash Except as documented, all other systems reviewed and negative [facility] Past Medical History Medical History Hyperthyroidism Patient denies medical problems Family History Family History Father Hypertension Mother Heart disease Hypertension Grandparent Hypertension Heart disease Aneurysm Social History Social History Smoking status: Former smoker Tobacco type: cigars Additional smoking assessment comments: smokes 1 cigar daily Alcohol intake: never Substance use: current Substance use type: marijuana Do You Feel Safe in your Home?: Yes Lack of Transportation: No Lack of Food: Never True Current Housing: I Have Housing Concerned About Future Housing: No Difficulty Paying Gas/Electric Bills: No Difficulty Paying for Meds: No Currently Unemployed: No Education: Associate Degree Difficulty w/ Childcare or Family Care: No Living arrangements: with family Additional living arrangements comments: fianc? 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 CARDIOVASCULAR: Tachycardic with normal rhythm without murmurs rubs or gallops. ABDOMINAL: Soft, nontender, nondistended, no rebound or guarding MUSCULOSKELETAl: Moves all extremities. No clubbing, cyanosis or edema. NEURO: Awake and alert. Following commands, speech normal, no focal deficits SKIN:: Warm, dry. No rashes lesions or abrasions PSYCHIATRIC: Normal affect/mood, Course Vital Signs Vital signs: Vital Signs Temperature 98.6 F 03/18/25 07:34 Pulse Rate 108 H 03/18/25 07:34 Respiratory Rate 20 03/18/25 07:34 Blood Pressure 140/98 H 03/18/25 07:34 Pulse Oximetry 94 03/18/25 07:34 Oxygen Delivery Room Air 03/18/25 07:34 Temperature 100.5 F H 03/18/25 09:20 Pulse Rate 97 03/18/25 09:20 Respiratory Rate 20 03/18/25 09:20 Blood Pressure 140/98 H 03/18/25 07:34 Pulse Oximetry 99 03/18/25 09:20 Oxygen Delivery Room Air 03/18/25 07:34 MDM - URI/Sore Throat MDM Narrative Medical decision making narrative: 29-year-old female who with no significant past medical history presents to the ED for flu-like symptoms. On initial evaluation, patient with no contrast, afebrile, hemodynamically stable. Heart lungs are clear. Abdomen soft nontender. Chest x-ray showed no acute process. COVID/flu/RSV negative. D-dimer negative. Leukocytosis at 22. Suspect that she does have a viral syndrome. Patient was educated on Tylenol and ibuprofen use. He is advised follow-up with her PCP next week for evaluation. Patient was agreeable to this plan. Given strict return precautions. Differential Diagnosis Differential diagnosis: Likely upper respiratory infection, sinusitis, viral infection, bronchitis and influenza Medical Records Attestation: I reviewed the patient's medical records. Lab Data Attestation: I reviewed the patient's lab results. 03/18/25 08:27 03/18/25 08:27 Labs: Lab Results 03/18/25 Range/Units 08:27 WBC 22.8 H (4.5-10.0) K/mm3 RBC 4.26 (4.2-5.4) M/mm3 Hgb 13.0 (12.0-15.0) g/dL Hct 38.4 (37.0-47.0) % MCV 90.1 (80-100) fl MCH 30.5 (26-34) pg MCHC 33.9 (32-36) g/dl RDW 12.6 (11.5-14.5) % Plt Count 280 (150-375) k/mm3 MPV 11.2 H (7.4-10.4) fl Immature Gran % (Auto) 0.4 (0-0.5) % Neut % (Auto) 92.9 H (45.5-73.1) % Lymph % (Auto) 4.5 L (18.3-44.2) % [place] % (Auto) 1.9 L (2.6-8.5) % Eos % (Auto) 0.1 (0-4.4) % Baso % (Auto) 0.2 (0.2-1.2) % Lymph # (Auto) 1.03 (0.9-3.2) K/mm3 [place] # (Auto) 0.4 (0.1-0.6) K/mm3 Eos # (Auto) 0.0 (0-0.3) K/mm3 Baso # (Auto) 0.0 (0.0-0.1) K/mm3 Abs Immat Gran (auto) 0.10 H (0.00-0.031) K/mm3 Absolute Neuts (auto) 21.2 H (1.3-6.7) K/mm3 Absolute Nucleated RBC 0.000 (0.0-0.012) K/mm3 Nucleated RBC % 0.0 (0.0-0.2) % D-Dimer 0.32 (<0.48) ug/mL Sodium 137 (137-145) mmol/L Potassium 3.7 (3.4-5.0) mmol/L Chloride 107 (98-107) mmol/L Carbon Dioxide 22 (22-30) mmol/L Anion Gap 8 (4-12) mmol/L BUN 14 (7-17) mg/dL Creatinine 0.72 (0.7-1.0) mg/dL Estim Creat Clear Calc 123 ml/min Estimated GFR > 60 (59 - ) Glucose 95 (65-110) mg/dL Calcium 9.1 (8.4-10.2) mg/dL Total Bilirubin 0.6 (0.2-1.3) mg/dL AST 34 (14-36) U/L ALT 20 (6-35) U/L Alkaline Phosphatase 67 (38-126) U/L Total Protein 7.7 (6.3-8.2) g/dL Albumin 4.2 (3.5-5.1) g/dL Influenza A (RT-PCR) Negative (Negative) Influenza B (RT-PCR) Negative (Negative) RSV (RT-PCR) Negative (Negative) SARS-CoV-2 RNA (RT-PCR) Negative (Negative) Imaging Data Radiologist's impression: Impressions Chest X-Ray 03/18/25 08:20 IMPRESSION: 1: NO ACUTE CARDIOPULMONARY DISEASE. Discharge Plan Discharge Clinical Impression: Acute viral syndrome Patient Disposition: Home Condition: Stable Instructions: Antibiotic Form, Viral Syndrome (ED) Additional Instructions: For pain, discomfort or temperature greater than or equal to 100.8 ?F please alternate the following 2 medications as needed. First medication- acetaminophen/Tylenol- 1000mg every 6-8 hours as needed for above indications. Second medication- ibuprofen/Motrin-600mg every 6-8 hours as needed for above indication. Follow-up with your PCP in the next week for evaluation. Return to the ED for any new or worsening symptoms. Patient Language: Albanian Prescriptions: No Action Nexplanon 68 mg implant 1 implant subdermal ONCE Rx Instructions: as a single dose Follow-up/Referrals: PHYSICIAN,SPECIAL SERVICES AGENT [Primary Care Provider, Internal Medicine]
[2025-03-18 08:33] LABS: Hematocrit 38.4 % (37.0-47.0); Hemoglobin 13.0 g/dL (12.0-15.0); Immature Granulocyte Percent A 0.4 % (0-0.5); Lymphocytes Absolute Auto 1.03 K/mm3 (0.9-3.2); Mean Corpuscular HGB Conc 33.9 g/dl (32-36); Mean Corpuscular Hemoglobin 30.5 pg (26-34); Mean Corpuscular Volume 90.1 fl (80-100); Nucleated Red Blood Cells Absolute Auto 0.000 K/mm3 (0.0-0.012); Nucleated Red Blood Cells Perc 0.0 % (0.0-0.2); Platelet Count Result 280 k/mm3 (150-375); Red Blood Count 4.26 M/mm3 (4.2-5.4); White Blood Count 22.8 K/mm3 (4.5-10.0)
[2025-03-18 08:54] LABS: Alanine Aminotransferase 20 U/L (6-35); Albumin Level 4.2 g/dL (3.5-5.1); Alkaline Phosphatase 67 U/L (38-126); Anion Gap 8 mmol/L (4-12); Aspartate Amino Transferase 34 U/L (14-36); Bilirubin,Total 0.6 mg/dL (0.2-1.3); Blood Urea Nitrogen 14 mg/dL (7-17); Calcium 9.1 mg/dL (8.4-10.2); Carbon Dioxide 22 mmol/L (22-30); Chloride 107 mmol/L (98-107); Estimated CRCL calculation 123 ml/min; Estimated Glomerular Filt Rate > 60; Glucose 95 mg/dL (65-110); Potassium 3.7 mmol/L (3.4-5.0); Sodium 137 mmol/L (137-145); Total Protein 7.7 g/dL (6.3-8.2)
[2025-03-18 09:13] LABS: Influenza A QL RT-PCR Negative (Negative); Influenza B QL RT-PCR Negative (Negative); RSV RNA, RT-PCR Negative (Negative); SARS-CoV-2 RNA PCR Negative (Negative)
[2025-03-18 09:20] VITALS: PULSE 97; RESP 20; TEMP 38.1; O2SAT 99
[2025-03-18] MEDS: ACETAMINOPHEN 500 MG TABLET 1000 MG PO (10:08)
== END 2025-03-18 10:10 | disposition home or self-care (01) ==
PROVIDERS: Emergency Provider Student in an Organized Health Care Education/Training Program
DX: B34.9 Viral infection, unspecified (principal); Z20.822 Contact with and (suspected) exposure to COVID-19; E05.90 Thyrotoxicosis, unspecified without thyrotoxic crisis or storm
CPT/HCPCS: 36415; 71046; 80053; 85025; 85380; 87637; 99283; A9270